=== PATIENT | male | born 1940 | race Caucasian/White ===

== ENCOUNTER 2019-05-19 11:34 | Inpatient (IN) | payer MEDICARE, SELFPAY ==
[2019-05-19] VITALS (10 sets, daily range): BP systolic 82–122; BP diastolic 54–75; PULSE 84–103; RESP 14–25; TEMP 36.1–37.3; O2SAT 92–100; BMI 19.6; BMI 19.1; BMI 19.2
--- NOTE | 2019-05-19 11:48 | EKG12_ITS ---
Test Reason : Blood Pressure : / mmHG Vent. Rate : 094 BPM Atrial Rate : 094 BPM P-R Int : 152 ms QRS Dur : 100 ms QT Int : 316 ms P-R-T Axes : 063 032 165 degrees QTc Int : 395 ms Normal sinus rhythm Possible Left atrial enlargement Low voltage QRS ST & T wave abnormality, consider inferolateral ischemia Abnormal ECG Confirmed by DEION FOWLER, AMEYA ([id number]), assistant film editor ASHIA OVALLES ([id number]) on 05/20/2019 1:42:20 PM Referred By: JASON Confirmed By:AMEYA ALBARRAN MD
--- NOTE | 2019-05-19 11:50 | ED.VIS.GEN ---
History of Present Illness Chief Complaint: Weakness Informant: Patient, Family Onset: - - Uncertain Context: Gradual Onset Timing: Continuous Quality: Poor p.o. intake, decreased activity Location: Not applicable Current Severity: - - Unknown Maximum Severity: - - Unknown Worsened by: Son is concerned for depression Relieved by: Nothing Associated Symptoms: Generalized weakness Narrative: Patient is an elderly male who was admitted to [facility] last week and discharged last Sunday. He is presently on digoxin and Eliquis. He was diagnosed with right rib fracture, A. fib RVR and COPD. He has history of lung cancer. Primary informant was son. His speech is garbled, which son states is normal for him. He denies black or maroon stool. He denies blood in his urine. He states his urine is dark. He was unaware that his skin is discolored. Prior similar symptoms: No Recent Illness/Hospitalization: Yes Past Medical History - Allergies and Home Meds Allergies/Adverse Reactions: Allergies No Known Allergies Allergy (Verified 05/19/19 12:39) Primary Care Physician: NOT,DEFINED [NON-STAFF] - Prior records reviewed: Yes - From [place] Past Medical History: - - A. fib, COPD, lung cancer, right rib fracture Lives: Alone Smoking Status: Former smoker Alcohol: None Review of Systems ROS: Unable to Obtain - History is limited to what son is able to tell me, records from [facility] and patient General: Reports: Malaise. Denies: Chills, Fever, Sweats Eyes: Denies: Visual changes - bilaterally, Blurred Vision - bilaterally ENT: Denies: Rhinorrhea, Sore throat Cardiovascular: Denies: Chest pain, Palpitations, Heart racing Respiratory: Reports: Dyspnea, Dyspnea on exertion. Denies: Cough, Sputum, Orthopnea Gastrointestinal: Denies: Abdominal pain, Nausea, Vomiting, Melena, Hematochezia Genitourinary: Denies: Dysuria, Hematuria, Frequency Musculoskeletal: Denies: Myalgias, Arthralgias, Neck pain, Back pain, Swelling, Extremity Pain Skin: Reports: Rash - There is a lenticular rash noted with delayed capillary refill, greater than 3 seconds. Neurological: Reports: Weakness. Denies: Headache Psych: Reports: Depression - Per son Endocrine: Denies: Polyuria, Polydipsia Hematologic: Denies: Easy bruising Allergy: Denies: Uticaria, Swelling of the mouth Physical Exam Vital Signs/Narrative: Vital Signs Temp Pulse Resp BP Pulse Ox 05/19/19 11:36 97.0 F L 103 H 14 82/54 L 96 Inital Vital Signs reviewed: Yes - Systolic blood pressure 82 in triage. General: Well nourished, Well developed, No Acute Distress Head: Normocephalic, Atraumatic Eyes: Perrl, EOMI. Negative for: Pale conjunctiva, Scleral icterus ENT: No rhinorrhea, TM's clear Neck: Supple, Nontender, No lymphadenopathy, No JVD Cardiovascular: Regular rhythm, No murmurs, Normal S1, Normal S2, Tachycardia Respiratory: No distress, Chest nontender, Rales - Rales noted posteriorly over the right lower lobe., Diminished - Diminished to absent breath sounds left lower lobe posteriorly Abdomen: Soft, Nontender, Nondistended, Normal bowel sounds, No masses, - - There is no abdominal bruit or pulsatile mass noted.. Negative for: Hepatomegaly, Splenomegaly, Mass Back: Nontender, Normal Inspection. Negative for: CVA tenderness Extremities: Nontender, No edema Skin: Cyanosis - Peripherally upper and lower extremity. Negative for: Normal color, No rash, Diaphoresis, Jaundice Neurological: Cranial nerves II-XII grossly intact, Normal Strength, Normal Sensation. Negative for: Normal Gait - Unable to assess because of acuity Psychological: Depressed - With slow psychomotor skills Diagnostic/Tx/Re-eval Chest X-Ray - ED: 1 View, Read by ED Physician Single view chest x-ray interpreted by me at 1220 as possible effusion left with probable scarring versus cancer. There is no evidence of pneumothorax noted right or left. According to son he has cancer on the left side. Furthermore, rib fracture was on the right. Impressions Chest X-Ray 05/19/19 12:00 IMPRESSION: Findings suggest chronic pleural parenchymal changes in the left hemithorax with volume loss. Calcified pleural plaques. Electronically Signed: Moreno Terry, at 12:27 EDT , Service support , 05/19/19 12:00 Chest 1 View (Portable) [RAD] Stat Laboratory Results 05/19/19 05/19/19 05/19/19 12:00 12:00 12:00 WBC 13.3 H RBC 5.43 Hgb 16.3 Hct 49.6 MCV 91.3 MCH 30.0 MCHC 32.9 RDW 14.2 RDW Differential 47.5 H Plt Count 324 MPV 10.7 Immature Gran % (Auto) 0.300 Neut % (Auto) 87.3 H Lymph % (Auto) 5.1 L [place] % (Auto) 6.9 Eos % (Auto) 0.2 Baso % (Auto) 0.2 Absolute Neuts (auto) 11.6 H Absolute Lymphs (auto) 0.68 L Total Counted Not Reportable Sodium 138 Potassium 4.3 Chloride 99 Carbon Dioxide 32.0 Anion Gap 7 BUN 16 Creatinine 0.76 Estim Creat Clear Calc 46.09 Est GFR (MDRD) Af Amer 128 Est GFR (MDRD) Non-Af 106 BUN/Creatinine Ratio 21.2 H Glucose 131 H Lactic Acid 1.9 Calcium 9.0 Total Bilirubin 1.00 AST 20 ALT 20 Alkaline Phosphatase 159 H Total Creatine Kinase Troponin I < 0.015 Total Protein 8.3 H Albumin 2.4 L Globulin 5.9 H Albumin/Globulin Ratio 0.4 L Urine Color Urine Clarity Urine pH Ur Specific [place] Urine Protein Urine Glucose (UA) Urine Ketones Urine Occult Blood Urine Nitrite Urine Bilirubin Urine Urobilinogen Ur Leukocyte Esterase Urine RBC Urine WBC Ur Squamous Epith Cells Triple Phos Crystals Amorphous Sediment Urine Bacteria Urine Mucus Urine Trichomonas 05/19/19 05/19/19 12:00 12:00 WBC RBC Hgb Hct MCV MCH MCHC RDW RDW Differential Plt Count MPV Immature Gran % (Auto) Neut % (Auto) Lymph % (Auto) [place] % (Auto) Eos % (Auto) Baso % (Auto) Absolute Neuts (auto) Absolute Lymphs (auto) Total Counted Sodium Potassium Chloride Carbon Dioxide Anion Gap BUN Creatinine Estim Creat Clear Calc Est GFR (MDRD) Af Amer Est GFR (MDRD) Non-Af BUN/Creatinine Ratio Glucose Lactic Acid Calcium Total Bilirubin AST ALT Alkaline Phosphatase Total Creatine Kinase 18 L Troponin I Total Protein Albumin Globulin Albumin/Globulin Ratio Urine Color Yellow Urine Clarity Turbid Urine pH 8.0 Ur Specific [place] 1.010 Urine Protein 100 H Urine Glucose (UA) Normal Urine Ketones 5 H Urine Occult Blood 150 H Urine Nitrite Positive H Urine Bilirubin Negative Urine Urobilinogen 4 H Ur Leukocyte Esterase 500 H Urine RBC 0-5 SEEN Urine WBC >100 SEEN Ur Squamous Epith Cells 0-5 SEEN Triple Phos Crystals [employer]AT [employer] ENGINEER Amorphous Sediment 1+ Urine Bacteria 4+ Urine Mucus 1+ Urine Trichomonas - Rhythm Strip Rhythm Strip: Sinus Tach Rate: 101 - EKG Initial EKG Interpretation: Sinus Rhythm - Trickle rate 94. NV interval 152 ms. QRS duration 100 ms. QT 316 ms. There is evidence of low voltage. There is artifact. There are ST-T wave changes in the lateral leads. - Medical Decision Making Since patient is hypotensive mottled with poor capillary refill 1 L of normal saline was ordered. With history of trauma and fractured ribs and abnormal breath sounds noted need to evaluate for hemothorax especially since patient is on Eliquis. Since patient is on digoxin will obtain digoxin level to rule out digoxin toxicity. CBC was obtained to assess white count as well as H&H. In the direct differential one needs to rule out GI bleed as well. Because patient reports change in color his urine will obtain UA to assess for infection and blood. Troponin was obtained to rule out cardiac ischemia. CPK to evaluate for rhabdomyolysis. Urine is turbid and appearance of creamy chicken soup. Urine culture was sent and he received 1 g of Rocephin IV piggyback. He will receive 30 cc/kg of normal saline since his systolic blood pressure is less than 90 and concern for infectious etiology of his hypotension. CODE STATUS was discussed with son. He has a living will. Read through the living well. Patient does not want CPR. With regards to ventilator there is a stipulation if terminal. Since patient has an infection which is reversible should consider intubation. With regards to central line placement pressors, son states no one to talk to him. Aced on what I read and is being a reversible cause would consider placement of central line and pressors if indicated. Lactate is normal at 1.9. Since patient has infectious source tachycardic, hypothermic and elevated white count will treat for severe sepsis. He was fluid responsive. Will page hospitalist for admission to stepdown unit. Recommend stepdown unit because of need for nursing care/monitoring. - Critical Care Time Critical care time (excluding procedures): 30-74 minutes, Discussing w/Patient &/or Family/Social Media Marketing Analyst, Discussing w/Consultants, Arranging Admission or Transfer ED Disposition - Plan for ED Patient: Disposition: Acute Care Hospital [facility] Diagnosis: Severe sepsis, Hypotension, Urinary tract infection, History of chronic obstructive pulmonary disease, History of atrial fibrillation, On continuous oral anticoagulation Referrals: NOT,DEFINED [NON-STAFF] -
--- NOTE | 2019-05-19 12:00 | RAD_ITS ---
STUDY: X-RAY CHEST REASON FOR EXAM: Male, 78 years old. Weakness. Tachycardia. TECHNIQUE: Single AP portable view of the chest. COMPARISON: None. FINDINGS: EKG electrodes are seen. Volume loss in the left hemithorax with pleural-parenchymal changes at the left lung base. There is evidence of bronchiectasis involving the left upper and left lower lobes suggestive of chronic scarring. Calcified pleural plaques bilaterally. Hyperinflation of the right lung. Normal size heart. Normal mediastinum and jared. Normal visualized pulmonary arteries. Normal visualized aortic arch and descending thoracic aorta. There are diffuse degenerative changes of the visualized thoracic spine. Scoliosis. Normal visualized ribs, clavicles, and shoulders. There is no demonstrated abnormality of the visualized soft tissue structures of the upper abdomen. RAD/Chest 1 View (Portable) IMPRESSION: Findings suggest chronic pleural parenchymal changes in the left hemithorax with volume loss. Calcified pleural plaques. Electronically Signed: Moreno Terry, at 12:27 EDT , Service support ,
[2019-05-19] MEDS: 0.9% Normal Saline 1,000 ML 1000 ML IV (12:31)
[2019-05-19 12:40] LABS: Absolute Lymphocyte Count 0.68 X10^3/ul (0.83-4.51); Absolute Neutrophil Count 11.6 X10^3/uL (2.0-7.7); Basophil# 0.02 X10^3/uL; Basophil% 0.2 % (0-1); Eosinophil# 0.02 X10^3/uL; Eosinophils% 0.2 % (0-5); Hematocrit 49.6 % (40-54); Hemoglobin 16.3 g/dl (13.0-16.5); Lymphocyte # 0.68 X10^3/ul (4.0); Lymphocyte % 5.1 % (19-41); Mean Corp Hgb Conc 32.9 g/gl (32-36); Mean Corpuscular Volume 91.3 fL (80-94); Mean Platelet Vol. 10.7 fl (6.2-12.0); Monocyte# 0.92 X10^3/uL; Monocyte% 6.9 % (0-10); Neutrophil # 11.63 X10^3/uL (2.7-7.7); Neutrophil % 87.3 % (47-70); Platelet Count 324 K/mm3 (150-450); RBC Distribution Width CV 14.2 % (11.6-14.6); RBC Distribution Width SD 47.5 fl (35.1-43.9); Red Blood Count 5.43 M/mm3 (4.6-6.2); White Blood Count 13.3 K/mm3 (4.4-11.0)
[2019-05-19 12:41] LABS: Color, Urine Yellow (Yellow); Glucose, Dipstick Normal (Normal); Ketone-Dipstick 5 mg/dl (Negative); Leukocyte Esterase-Dipstick 500 /ul (Negative); Nitrite-Dipstick Positive (Negative); Occult Blood-Urine 150 /ul (Negative); POSITIVE COUNT NO; POSITIVE DIFFERENTIAL NO; POSITIVE MORPHOLOGY NO; Protein-Dipstick 100 mg/dl (Negative); Urine Bilirubin Dipstick Negative (Negative); Urine Clarity Turbid (Clear); Urine Urobilinogen 4 mg/dl (Normal)
[2019-05-19 12:57] LABS: White Blood Cells >100 SEEN /hpf (0-5)
[2019-05-19 12:58] LABS: Bacteria 4+ /hpf (None Seen); CPK Total, Creatine Kinase 18 U/L (39-308); Mucous, Urine 1+ /hpf (<or=2+); Red Blood Cells-Urine 0-5 SEEN /hpf (0-5); Squamous Epithelial Cells - UA 0-5 SEEN /hpf (0-5)
[2019-05-19 13:00] LABS: ALB/GLOB Ratio 0.4 RATIO (0.9-2.4); AST(SGOT) 20 U/L (15-37); Alanine Aminotransfer ALT/SGPT 20 U/L (16-61); Albumin, Serum 2.4 g/dL (3.2-5.0); Alkaline Phosphatase 159 U/L (45-117); Amorphous Sediment 1+; Anion Gap 7 (5-15); BUN 16 mg/dL (7-18); BUN/Creat Ratio 21.2 RATIO (10-20); Chloride 99 mmol/L (98-107); Creatinine, Serum 0.76 mg/dL (0.70-1.30); EST Glomerular Filtration Rate 106 mL/min (>60); Est Glom Filt Rate - Afr Amer 128 mL/min (>60); Estimated Creatinine Clearance 46.09 ml/min; Globulin 5.9 g/dL (2.2-4.2); Glucose 131 mg/dL (74-106); Potassium 4.3 mmol/L (3.5-5.1); Protein, Total 8.3 g/dL (6.4-8.2); Sodium Level 138 mmol/L (136-145)
[2019-05-19 13:05] LABS: Lactic Acid 1.9 mmol/L (0.4-2.0)
[2019-05-19] MEDS: Ceftriaxone 1 GM/50 ML BAG IV (13:09)
[2019-05-19 13:12] LABS: International Normalized Ratio 1.8; Partial Thromboplast Time 39.2 Seconds (24.1-36.2); Prothrombin Time (Protime)PT. 20.9 SECONDS (11.7-14.9)
--- NOTE | 2019-05-19 13:40 | PCM.HP.STD ---
Problem List (1) Hemoptysis Status: Acute (2) Atrial fibrillation Status: Chronic (3) Severe sepsis Status: Acute (4) Hypotension Status: Acute (5) Urinary tract infection Status: Acute (6) History of chronic obstructive pulmonary disease Status: Chronic (7) On continuous oral anticoagulation Status: Chronic History of Present Illness Date of Admission: 05/19/19 Chief Complaint: Weakness. The patient is a 78 year old M with past medical history as mentioned above presented to the emergency room because of weakness. According to patient's son, the patient lives alone and he has been having difficult time ambulating because of profound weakness that has been going on over the last few days after he was discharged from [facility]. Last week, patient had mechanical fall, went to [facility] where he had a wrist x-ray and he was found to have right rib fractures as well as A. fib with RVR. He was discharged from the hospital this last Sunday and since then, patient has been having issues with ambulation and weakness. While I am talking to the patient, patient coughs up blood twice. Son mentioned that his father has been having this chronic cough with brown-colored sputum since he was diagnosed with cancer more than 2 years ago but this blood is needed. Patient had 2 episodes of hemoptysis with moderate amount of blood. Patient denied chest pain or shortness of breath. He complains of right rib pain. He has history of atrial fibrillation with recent admission for A. fib with RVR and he has been on digoxin and Eliquis. He history of COPD, quit smoking long time ago and has not been using any bronchodilators or home oxygen. He has history of lung cancer in the left lung status post chemotherapy and radiation at the [facility]. In the emergency department, patient was hypotensive upon arrival, received bolus of IV fluids and blood pressure improved. He was afebrile, heart rate has been around 80-100, pulse ox was 96% on room air. Routine blood work was remarkable for leukocytosis, otherwise normal. EKG revealed what looks like atrial flutter, rate has been around 90s, no acute ischemic changes. Troponin is negative. LFT was unremarkable. Urinalysis revealed turbid urine, positive for nitrite and leukocyte esterase, there was more than 100 WBCs and 4+ bacteria. Chest x-ray revealed elevation of left hemidiaphragm, chronic fibrotic changes of the left hemithorax with volume loss and right lung hyperinflation. He is being admitted for severe sepsis secondary to acute cystitis, transient hypotension and hemoptysis. Past Medical History Past Medical History (Chronic Problems): Chronic Problems Atrial fibrillation (Chronic) History of chronic obstructive pulmonary disease (Chronic) On continuous oral anticoagulation (Chronic) Allergies No Known Allergies Allergy (Verified 05/19/19 12:39) Home Medications: Ambulatory Orders Medication Instructions Recorded Apixaban [Eliquis] 5 mg PO BID 05/19/19 Aspirin [Aspir 81] 81 mg PO DAILY 05/19/19 Cholecalciferol (VIT D3) [Vitamin 1,000 unit PO DAILY 05/19/19 D] Digoxin 125 mcg PO DAILY 05/19/19 Docusate Sodium [Stool Softener] 50 mg PO PRN PRN 05/19/19 Surgical History: appendectomy Psychiatric History: No pertinent psych hx Lives: Alone Smoking Status: Former smoker Alcohol: None Drugs: None - *Family History Maternal History Items: No pertinent history Paternal History Items: No pertinent history Review of Systems Constitutional: Reports: Anorexia, Weakness, Fatigue. Denies: Chills, Fever Eyes: Denies: Blurred vision, Double vision, Drainage, Redness HEENT: Denies: Difficulty Hearing, Ear Pain, Eye Pain, Nasal Congestion, Sore Throat Cardiovascular: Reports: - - Right rib pain.. Denies: Chest Pain, Chest Pressure, Chest Tightness, Heaviness, Light Headedness, Orthopnea, Paroxysmal Noc. Dyspnea Respiratory: Reports: Cough, Hemoptysis, Pleuritic Pain, Sputum production. Denies: Shortness of Breath, Wheezing Gastrointestinal: Denies: Abdominal Pain, Constipation, Diarrhea, Nausea, Vomiting Genitourinary: Reports: Incontinence. Denies: Dysuria, Frequency, Hematuria Musculoskeletal: Denies: Arm Pain, Back Pain, Foot Pain Skin: Denies: Dryness, Rash Neurological: Denies: Balance problems, Double vision, Change in Speech, Slurred speech, Confusion, Headaches, Incoordination, Numbness Psychiatric: Denies: Anxiety, Depression Endocrine: Denies: Change in Body Habitus, Polydipsia, Polyuria VTE Information - Inpt Only VTE Present on Admission: No VTE Mechan Device Prophylaxis: SCD's VTE Pharm Prophylaxis ordered?: No Patient Problems: Active and Suspected Problems Severe sepsis (Acute) Hypotension (Acute) Urinary tract infection (Acute) - Physical Exam General: Alert, Oriented x3, Cooperative, No apparent distress HEENT: Atraumatic, PERRLA, EOMI, Normocephalic Oral: No Gingival or Mucosal Lesions/ Ulcerations, Dry Mucosa Neck: Supple, No JVD, Negative Carotid Bruits, Trachea Midline, Thyroid Normal Size and Texture Lungs: Diminished, Rales, Rhonchi, - - Markedly decreased breath sounds on the left hemithorax, coarse crackles, rhonchi. Cardiovascular: Regular rate, Regular Rhythm, Normal S1, Normal S2, PMI Normal, Tachycardic Abdomen: Bowel Sounds Present, Soft, Non Tender, Non-Distended, No Hepato-splenomegaly Extremities: No clubbing, No cyanosis, No edema Skin: No rashes, No breakdown Lymphatic: No Cervical, Supraclavicular, or Inguinal Adenopathy Neurological: Cranial nerves II-XII grossly intact, Motor Exam 5/5 strength throughout Psych/Mental Status: Normal Affect, Appropriate Vital Signs Temp Pulse Resp BP Pulse Ox 97.0 F L 85 25 H 122/75 H 100 05/19/19 11:36 05/19/19 13:23 05/19/19 13:23 05/19/19 13:23 05/19/19 13:23 Oxygen Delivery Method Room Air Weight: 118 lb Body Mass Index (BMI) 19.6 Laboratory Tests Past 24 Hrs 05/19/19 05/19/19 05/19/19 12:00 12:00 12:00 WBC 13.3 H RBC 5.43 Hgb 16.3 Hct 49.6 MCV 91.3 MCH 30.0 MCHC 32.9 RDW 14.2 RDW Differential 47.5 H Plt Count 324 MPV 10.7 Immature Gran % (Auto) 0.300 Neut % (Auto) 87.3 H Lymph % (Auto) 5.1 L [place] % (Auto) 6.9 Eos % (Auto) 0.2 Baso % (Auto) 0.2 Absolute Neuts (auto) 11.6 H Absolute Lymphs (auto) 0.68 L Total Counted Not Reportable PT 20.9 H INR 1.8 APTT 39.2 H Sodium 138 Potassium 4.3 Chloride 99 Carbon Dioxide 32.0 Anion Gap 7 BUN 16 Creatinine 0.76 Estim Creat Clear Calc 46.09 Est GFR (MDRD) Af Amer 128 Est GFR (MDRD) Non-Af 106 BUN/Creatinine Ratio 21.2 H Glucose 131 H Lactic Acid Calcium 9.0 Total Bilirubin 1.00 AST 20 ALT 20 Alkaline Phosphatase 159 H Total Creatine Kinase Troponin I < 0.015 Total Protein 8.3 H Albumin 2.4 L Globulin 5.9 H Albumin/Globulin Ratio 0.4 L Urine Color Urine Clarity Urine pH Ur Specific [place] Urine Protein Urine Glucose (UA) Urine Ketones Urine Occult Blood Urine Nitrite Urine Bilirubin Urine Urobilinogen Ur Leukocyte Esterase Urine RBC Urine WBC Ur Squamous Epith Cells Triple Phos Crystals Amorphous Sediment Urine Bacteria Urine Mucus Urine Trichomonas 05/19/19 05/19/19 05/19/19 12:00 12:00 12:00 WBC RBC Hgb Hct MCV MCH MCHC RDW RDW Differential Plt Count MPV Immature Gran % (Auto) Neut % (Auto) Lymph % (Auto) [place] % (Auto) Eos % (Auto) Baso % (Auto) Absolute Neuts (auto) Absolute Lymphs (auto) Total Counted PT INR APTT Sodium Potassium Chloride Carbon Dioxide Anion Gap BUN Creatinine Estim Creat Clear Calc Est GFR (MDRD) Af Amer Est GFR (MDRD) Non-Af BUN/Creatinine Ratio Glucose Lactic Acid 1.9 Calcium Total Bilirubin AST ALT Alkaline Phosphatase Total Creatine Kinase 18 L Troponin I Total Protein Albumin Globulin Albumin/Globulin Ratio Urine Color Yellow Urine Clarity Turbid Urine pH 8.0 Ur Specific [place] 1.010 Urine Protein 100 H Urine Glucose (UA) Normal Urine Ketones 5 H Urine Occult Blood 150 H Urine Nitrite Positive H Urine Bilirubin Negative Urine Urobilinogen 4 H Ur Leukocyte Esterase 500 H Urine RBC 0-5 SEEN Urine WBC >100 SEEN Ur Squamous Epith Cells 0-5 SEEN Triple Phos Crystals PHOTO TECHNOLOGIST Amorphous Sediment 1+ Urine Bacteria 4+ Urine Mucus 1+ Urine Trichomonas Clinical Impression(s) from Imaging Studies Chest X-Ray 05/19/19 12:00 IMPRESSION: Findings suggest chronic pleural parenchymal changes in the left hemithorax with volume loss. Calcified pleural plaques. Electronically Signed: Moreno Terry, at 12:27 EDT , Service support , Assessment/Plan All Active Problems Hemoptysis (Acute) Severe sepsis (Acute) Hypotension (Acute) Urinary tract infection (Acute) This is a 78 years old male patient presented to the emergency room because of weakness, found to have severe sepsis secondary to acute cystitis with transient hypotension and also he developed hemoptysis while in the emergency department. #1 acute cystitis/severe sepsis: Initially, patient was hypotensive, improved with IV fluid bolus. Lactic acid was normal. Plan: Admit to PCU stepdown status, IV fluids, blood culture, urine culture, start IV Rocephin, Tylenol as needed, IV antiemetics, repeat CBC and BMP tomorrow morning, repeat INR tomorrow morning, PT OT evaluation and treatment. #2 hemoptysis/recent history of right rib fractures: In context of history of lung cancer. Chest x-ray reviewed as above. Patient does have a history of chronic cough with brown sputum but today, it was bloody. Hemoglobin and hematocrit are stable. Patient had a recent history of mechanical fall with right rib fractures, was continued on Eliquis. His INR is 1.8. Plan: Discontinuing Eliquis and aspirin, pain control, repeat CBC and BMP tomorrow, repeat INR tomorrow morning. I discussed discontinuing Eliquis with the patient's son, explained to him risks of bleeding versus risks of stroke and he agreed to discontinue Eliquis at this time. #3 chronic atrial fibrillation: Rate is controlled, has been around 90-100, blood pressure stabilized. Plan to continue digoxin for rate control, discontinue Eliquis and aspirin for now. Eliquis will be discontinued forever because of high risk of bleeding. #4 history of lung cancer: Status post chemotherapy and radiation. Plan as above. #5 COPD: Pulse ox is maintained on room air. Plan to do albuterol as needed, incentive parameter. #6 CODE STATUS: Discussed with the patient himself and his son. I explained to the patient different types of CODE STATUS including DNR CC, DNR CCA and full code. Patient clearly mentioned that he does not want any aggressive treatment, no resuscitation, no intubation and mechanical ventilation. Patient's son agreed. CODE STATUS is DNR CCA. #7 DVT prophylaxis: SCDs. This note was generated with [employer] dictation software. It may contain incorrect words, spelling, and punctuation that were not noted in checking the note before signing. Code Visit Inpatient E&M: 33627 Init Hosp L3 Procedures: 41087 Advncd Care Plan 30 Min - 17 mins spent in discussion.
--- NOTE | 2019-05-19 15:59 | CASEMGMT ---
SW spoke w/pt's son Lobito at bedside, pt is asleep at present, in regard to prior level of care and discharge plan. PCP: Pt sees at a doctor at the [place], son can't remember the doctor's name as he states that the physician has changed multiple times. Preferred Pharmacy: Uses [place] pharmacy Insurance: [employer] Medicare PPO Living Will/POA: On chart, son Lobito states he and son Alexandru are pt's POAs. LNOK: Pt has two sons and a daughter who all live nearby and help pt as able. Living arrangements: Pt lives on the first story of his home, a few steps to get in. DME/HHC: Pt has walker, cane, shower chair and bedside commode. Pt also has home health care services that are to be starting with [facility], 7 hours per week, covered by the [place]. The case manger was to be coming out tomorrow to assess the home situation. SW spoke w/son at the bedside in regard to discharge plan. Son initially asked about hospice, as he was told hospice could provide care for the hours that the aides from [facility] could not. SW explained to son that hospice is end of life care, and that they do not provide this kind of care coverage in the home. Son describes that pt had been managing at home until recently, and since home from [facility] is not able to care for himself really at all. SW asked if son feels pt needs 24/7 care, as the way he is describing it sounds like pt does need this. Son does think pt needs 24/7 care at home. Upon further discussion regarding hospice, son does not think that hospice is appropriate at this time. SW explained for 24/7 care at home, this can be provided by paying out of pocket, but there is no service that provides this. SW spoke w/son about TCU, as SW was informed pt does not want to go to long term. Son is agreeable to referral to TCU possibly, thinks pt may be okay with this. SW explained will put pt on TCU list, and asked him to speak to pt about it and will ask SW to stop in tomorrow. SW also let son know if pt and family do want to speak w/hospice, SW can speak w/physician about that as well. Son states understanding. SW called Courtney and made referral to TCU, let her know that PATRICK tomorrow will follow up w/her if family and pt would like definite referral to TCU. ELIDIA Stacy
[2019-05-19] MEDS: Ceftriaxone 1 GM/50 mL Premix Q24 IV (16:04)
--- NOTE | 2019-05-19 16:24 | CASEMGMT ---
Copy of LW/POA in paper chart. ELIDIA Stacy
[2019-05-19] MEDS: Mirtazapine 15 MG Tablet PO (21:22)
[2019-05-20] VITALS (19 sets, daily range): BP systolic 92–141; BP diastolic 53–85; PULSE 83–97; RESP 16–30; TEMP 36.3–37.3; O2SAT 93–98
[2019-05-20] MEDS: 0.9% Normal Saline 1,000 ML 75 ML IV (02:34)
[2019-05-20 08:36] LABS: Absolute Lymphocyte Count 0.71 X10^3/ul (0.83-4.51); Absolute Neutrophil Count 8.7 X10^3/uL (2.0-7.7); Basophil# 0.02 X10^3/uL; Basophil% 0.2 % (0-1); Eosinophil# 0.05 X10^3/uL; Eosinophils% 0.5 % (0-5); Hematocrit 41.6 % (40-54); Hemoglobin 13.4 g/dl (13.0-16.5); Lymphocyte # 0.71 X10^3/ul (4.0); Lymphocyte % 6.9 % (19-41); Mean Corp Hgb Conc 32.2 g/gl (32-36); Mean Corpuscular Hgb 29.1 pg (27.0-32.0); Mean Corpuscular Volume 90.4 fL (80-94); Mean Platelet Vol. 10.4 fl (6.2-12.0); Monocyte# 0.82 X10^3/uL; Monocyte% 7.9 % (0-10); Neutrophil # 8.72 X10^3/uL (2.7-7.7); Neutrophil % 84.3 % (47-70); POSITIVE COUNT NO; POSITIVE DIFFERENTIAL NO; POSITIVE MORPHOLOGY NO; Platelet Count 289 K/mm3 (150-450); RBC Distribution Width CV 14.2 % (11.6-14.6); White Blood Count 10.3 K/mm3 (4.4-11.0)
[2019-05-20 08:45] LABS: Anion Gap 6 (5-15); BUN 11 mg/dL (7-18); BUN/Creat Ratio 24.8 RATIO (10-20); Calcium,Total 8.1 mg/dL (8.5-10.1); Chloride 104 mmol/L (98-107); Creatinine, Serum 0.44 mg/dL (0.70-1.30); EST Glomerular Filtration Rate 196 mL/min (>60); Est Glom Filt Rate - Afr Amer 237 mL/min (>60); Estimated Creatinine Clearance 44.95 ml/min; Glucose 96 mg/dL (74-106); Potassium 3.9 mmol/L (3.5-5.1); Sodium Level 139 mmol/L (136-145)
[2019-05-20 09:10] LABS: International Normalized Ratio 1.6; Prothrombin Time (Protime)PT. 18.8 SECONDS (11.7-14.9)
[2019-05-20] MEDS: Digoxin 125 MCG Tablet PO (09:32)
--- NOTE | 2019-05-20 11:38 | NURSING ---
respiratory therapy notified of consult
--- NOTE | 2019-05-20 12:21 | PN_ITS ---
Patient Problems: Active and Suspected Problems Severe sepsis (Acute) Hypotension (Acute) Urinary tract infection (Acute) Subjective: Patient seen and examined. He was admitted and is being managed for sepsis due to UTI. Patient is lethargic this morning though he has no complaints. He denies any fever or chills, palpitations or dizziness, chest pain, diarrhea vomiting. Review of systems otherwise negative. Labs and vitals reviewed. Patient is to be tachypneic and this is thought to be due to the fact that he is taking very shallow breaths. He is saturating well on room air. white cell count has trended down to 10.3 Vitals/I&O's: Vital Signs Temp Pulse Resp BP Pulse Ox 97.4 F L 88 28 H 114/72 96 05/20/19 12:12 05/20/19 12:12 05/20/19 12:12 05/20/19 12:12 05/20/19 12:12 Oxygen Delivery Method Room Air Weight: 115 lb 1.301 oz Body Mass Index (BMI) 19.1 Intake and Output for Last 24 Hours 05/18/19 05/19/19 05/20/19 23:59 23:59 23:59 Intake Total 2335 / 2335 Output Total 1300 / 1300 Balance 1035 / 1035 General: Alert, Oriented x3, Cooperative, No apparent distress, Lethargic HEENT: Atraumatic, PERRLA, EOMI, Normocephalic Oral: Moist Mucosa Neck: Supple, No JVD, Negative Carotid Bruits Lungs: - - decreased breath sounds bibasally, no wheezes or rales or crackles. Cardiovascular: Regular rate, Regular Rhythm, Normal S1, Normal S2, No murmurs Abdomen: Bowel Sounds Present, Soft, Non Tender, Non-Distended Extremities: No clubbing, No cyanosis, No edema, Capillary Refill Less than 3 Seconds Skin: No rashes, No breakdown Musculoskeletal: No Tenderness to Palpation of Joints or Extremities Lymphatic: No Cervical, Supraclavicular, or Inguinal Adenopathy Neurological: Cranial nerves II-XII grossly intact, Neuro grossly intact, Motor Exam 5/5 strength throughout Psych/Mental Status: Normal Affect, Appropriate, Alert and oriented to time, place, person, mood and affect Microbiology Past 72 Hours 05/19/19 12:00 Urine Catheter - Serrato Urine Culture - Preliminary Gram negative luana Laboratory Results 05/19/19 12:00: WBC 13.3 H, RBC 5.43, Hgb 16.3, Hct 49.6, MCV 91.3, MCH 30.0, MCHC 32.9, RDW 14.2, RDW Differential 47.5 H, Plt Count 324, MPV 10.7, Immature Gran % (Auto) 0.300, Neut % (Auto) 87.3 H, Lymph % (Auto) 5.1 L, [place] % (Auto) 6.9, Eos % (Auto) 0.2, Baso % (Auto) 0.2, Absolute Neuts (auto) 11.6 H, Absolute Lymphs (auto) 0.68 L, Total Counted Not Reportable 05/19/19 12:00: PT 20.9 H, INR 1.8, APTT 39.2 H 05/19/19 12:00: Sodium 138, Potassium 4.3, Chloride 99, Carbon Dioxide 32.0, Anion Gap 7, BUN 16, Creatinine 0.76, Estim Creat Clear Calc 46.09, Est GFR (MDRD) Af Amer 128, Est GFR (MDRD) Non-Af 106, BUN/Creatinine Ratio 21.2 H, Glucose 131 H, Calcium 9.0, Total Bilirubin 1.00, AST 20, ALT 20, Alkaline Phosphatase 159 H, Troponin I < 0.015, Total Protein 8.3 H, Albumin 2.4 L, Globulin 5.9 H, Albumin/Globulin Ratio 0.4 L 05/19/19 12:00: Lactic Acid 1.9 05/19/19 12:00: Total Creatine Kinase 18 L 05/19/19 12:00: Urine Color Yellow, Urine Clarity Turbid, Urine pH 8.0, Ur Specific [place] 1.010, Urine Protein 100 H, Urine Glucose (UA) Normal, Urine Ketones 5 H, Urine Occult Blood 150 H, Urine Nitrite Positive H, Urine Bilirubin Negative, Urine Urobilinogen 4 H, Ur Leukocyte Esterase 500 H, Urine RBC 0-5 SEEN, Urine WBC >100 SEEN, Ur Squamous Epith Cells 0-5 SEEN, Triple Phos Crystals EMERG[employer] SERVICE [employer]ER, Amorphous Sediment 1+, Urine Bacteria 4+, Urine Mucus 1+, Urine Trichomonas 05/20/19 08:00: WBC 10.3, RBC 4.60, Hgb 13.4, Hct 41.6, MCV 90.4, MCH 29.1, MCHC 32.2, RDW 14.2, RDW Differential 47.0 H, Plt Count 289, MPV 10.4, Immature Gran % (Auto) 0.200, Neut % (Auto) 84.3 H, Lymph % (Auto) 6.9 L, [place] % (Auto) 7.9, Eos % (Auto) 0.5, Baso % (Auto) 0.2, Absolute Neuts (auto) 8.7 H, Absolute Lymphs (auto) 0.71 L, Total Counted Not Reportable 05/20/19 08:00: Sodium 139, Potassium 3.9, Chloride 104, Carbon Dioxide 29.0, Anion Gap 6, BUN 11, Creatinine 0.44 L, Estim Creat Clear Calc 44.95, Est GFR (MDRD) Af Amer 237, Est GFR (MDRD) Non-Af 196, BUN/Creatinine Ratio 24.8 H, Glucose 96, Calcium 8.1 L 05/20/19 08:00: PT 18.8 H, INR 1.6 Diagnostic Data Chest X-Ray 05/19/19 12:00 IMPRESSION: Findings suggest chronic pleural parenchymal changes in the left hemithorax with volume loss. Calcified pleural plaques. Electronically Signed: Moreno Terry, at 12:27 EDT , Service support , Current Medications Acetaminophen (Tylenol) 650 mg PO Q6H PRN PRN PRN Reason: Mild pain 1-3/Temp > 100.7 F Albuterol Sulfate (Ventolin Aerosols) 2.5 mg INHALATION Q4H PRN PRN PRN Reason: Shortness of breath, wheezing Digoxin (Lanoxin) 125 mcg PO DAILY DESIREE Last Admin: 05/20/19 09:32 Dose: 125 mcg Documented by: Docusate Sodium (Colace) 100 mg PO BID PRN PRN PRN Reason: CONSTIPATION Ceftriaxone Sodium 2 gm/ (Sodium Chloride) 50 mls @ 100 mls/hr IV Q24 DESIREE Last Admin: 05/20/19 09:32 Dose: 100 mls/hr Documented by: Sodium Chloride () 1,000 mls @ 75 mls/hr IV .[id number] [facility] Stop: 05/20/19 17:46 Last Admin: 05/20/19 02:34 Dose: 75 mls/hr Documented by: Mirtazapine (Remeron) 15 mg PO QHS [facility] Last Admin: 05/19/19 21:22 Dose: 15 mg Documented by: Nutritional Formula (Lactose Free) (Ensure Enlive) 120 ml PO 4X/DAY [facility] Last Admin: 05/20/19 09:32 Dose: 120 ml Documented by: Ondansetron HCl (Zofran) 4 mg IV Q8H PRN PRN PRN Reason: NAUSEA/VOMITING Sodium Chloride () 10 - 40 ml IV UD PRN PRN Reason: SALINE FLUSH Medical Necessity - Tobacco Use Smoking Status: Former smoker Tobacco Use: Cigarettes Assessment/Plan All Active Problems Hemoptysis (Acute) Severe sepsis (Acute) Hypotension (Acute) Urinary tract infection (Acute) 1. Severe sepsis due to UTI * Was admitted with a complaint of generalized weakness and found to be hypotensive when he was admitted. This responded to IV fluids. Met SIRS criteria and had UTI. * Was recently admitted at [facility] for mechanical fall where he was also found to have rib fractures as well as A. fib with RVR. Subsequently became debilitated and weak at home. * Currently tachypneic. White cell count is trended down to 10.3. * SIRS criteria is now 1 out of 4. * On IV ceftriaxone. Will continue. * continue hydration with IVF NS @ 75cc/hr * 2. Hemoptysis in setting of recent right rib fractures * also has a history of lung cancer. * hemoptysis has resolved * patient however tachypneic, breathing in the high 20s. He seems to be taking shallow breaths, with poor inspiratory effort due to generalised weakness * chest physiotherapy * incentive spirometry * breathing treatments * if hemoptysis recurs, will consult pulmo * 3. Chronic Afib: rate controlled. Eliquis and aspirin held for now o/a of hemoptysis. on digoxin 4. History of lung cancer: Status post chemo and radiation. Stable. 5. COPD: Breathing treatments. Give oxygen as needed to maintain saturation above 100%. DVT prophylaxis: SCDs. No anticoagulation for now o/a of hemoptysis CODE STATUS: DNR CCA Code Visit Inpatient E&M: 83814 Subs Hosp L3
--- NOTE | 2019-05-20 14:45 | CASEMGMT ---
SW spoke with patient about [facility]. He agreed to go to TCU when ready for discharge. Plan: [facility] pending insurance approval and patient being medically ready. Savannah EVANS
[2019-05-20] MEDS: 0.9% Normal Saline 1,000 ML 999 ML IV (17:00)
[2019-05-20] MEDS: 0.9% Normal Saline 1,000 ML 125 ML IV (18:06)
[2019-05-20] MEDS: Mirtazapine 15 MG Tablet PO (22:19)
[2019-05-21] VITALS (13 sets, daily range): BP systolic 96–125; BP diastolic 57–75; PULSE 80–94; RESP 24; TEMP 36.5–37.1; O2SAT 94–98
[2019-05-21] MEDS: 0.9% Normal Saline 1,000 ML 125 ML IV ×2 (01:39→10:11)
[2019-05-21 05:59] LABS: Absolute Lymphocyte Count 0.64 X10^3/ul (0.83-4.51); Absolute Neutrophil Count 7.1 X10^3/uL (2.0-7.7); Basophil# 0.04 X10^3/uL; Basophil% 0.5 % (0-1); Eosinophil# 0.07 X10^3/uL; Eosinophils% 0.8 % (0-5); Hematocrit 42.4 % (40-54); Hemoglobin 13.5 g/dl (13.0-16.5); Lymphocyte # 0.64 X10^3/ul (4.0); Lymphocyte % 7.4 % (19-41); Mean Corp Hgb Conc 31.8 g/gl (32-36); Mean Corpuscular Hgb 28.7 pg (27.0-32.0); Mean Corpuscular Volume 90.2 fL (80-94); Mean Platelet Vol. 10.3 fl (6.2-12.0); Monocyte# 0.85 X10^3/uL; Monocyte% 9.8 % (0-10); Neutrophil # 7.08 X10^3/uL (2.7-7.7); Neutrophil % 81.4 % (47-70); Platelet Count 301 K/mm3 (150-450); RBC Distribution Width CV 14.3 % (11.6-14.6); RBC Distribution Width SD 46.6 fl (35.1-43.9); White Blood Count 8.7 K/mm3 (4.4-11.0)
[2019-05-21 06:08] LABS: POSITIVE COUNT NO; POSITIVE DIFFERENTIAL NO; POSITIVE MORPHOLOGY NO
[2019-05-21 06:16] LABS: Anion Gap 6 (5-15); BUN 13 mg/dL (7-18); BUN/Creat Ratio 19.8 RATIO (10-20); Calcium,Total 8.2 mg/dL (8.5-10.1); Chloride 105 mmol/L (98-107); Creatinine, Serum 0.66 mg/dL (0.70-1.30); EST Glomerular Filtration Rate 125 mL/min (>60); Est Glom Filt Rate - Afr Amer 151 mL/min (>60); Estimated Creatinine Clearance 44.95 ml/min; Glucose 86 mg/dL (74-106); Potassium 4.3 mmol/L (3.5-5.1); Sodium Level 142 mmol/L (136-145)
[2019-05-21] MEDS: Digoxin 125 MCG Tablet PO (10:14)
--- NOTE | 2019-05-21 12:43 | PCM.PN.HOSP ---
Patient Problems: Active and Suspected Problems Severe sepsis (Acute) Hypotension (Acute) Urinary tract infection (Acute) Subjective: Patient seen and examined. Is drowsy but arousable. Was not answering any question possible today he had no complaints and denied any pain. Patient had been noted to be taking shallow breaths and so was tachypneic. Respiratory therapy had worked with patient that he was very lethargic and sent over corporative. He is saturating well on room air. Vitals/I&O's: Vital Signs Temp Pulse Resp BP Pulse Ox 98.4 F 85 24 H 104/64 96 05/21/19 10:15 05/21/19 11:00 05/21/19 10:15 05/21/19 10:15 05/21/19 10:15 Oxygen Delivery Method Room Air Weight: 115 lb 1.301 oz Body Mass Index (BMI) 19.1 Intake and Output for Last 24 Hours 05/19/19 05/20/19 05/21/19 23:59 23:59 23:59 Intake Total 5064 / 5064 1611 / 1611 Output Total 2700 / 2700 1350 / 1350 Balance 2364 / 2364 261 / 261 General: Alert, Oriented x3, Cooperative, No apparent distress, Lethargic HEENT: Atraumatic, PERRLA, EOMI, Normocephalic Oral: Moist Mucosa Neck: Supple, No JVD, Negative Carotid Bruits Lungs: - - decreased breath sounds bibasally, no wheezes or rales or crackles, tachypneic Cardiovascular: Regular rate, Regular Rhythm, Normal S1, Normal S2, No murmurs Abdomen: Bowel Sounds Present, Soft, Non Tender, Non-Distended Extremities: No clubbing, No cyanosis, No edema, Capillary Refill Less than 3 Seconds Skin: No rashes, No breakdown Musculoskeletal: No Tenderness to Palpation of Joints or Extremities Lymphatic: No Cervical, Supraclavicular, or Inguinal Adenopathy Neurological: Cranial nerves II-XII grossly intact, Neuro grossly intact, Motor Exam 5/5 strength throughout Psych/Mental Status: Normal Affect, Appropriate, Alert and oriented to time, place, person, mood and affect Microbiology Past 72 Hours 05/19/19 12:00 Urine Catheter - Serrato Urine Culture - Final Providencia rettgeri Laboratory Results 05/21/19 05:30: WBC 8.7, RBC 4.70, Hgb 13.5, Hct 42.4, MCV 90.2, MCH 28.7, MCHC 31.8 L, RDW 14.3, RDW Differential 46.6 H, Plt Count 301, MPV 10.3, Immature Gran % (Auto) 0.100, Neut % (Auto) 81.4 H, Lymph % (Auto) 7.4 L, [place] % (Auto) 9.8, Eos % (Auto) 0.8, Baso % (Auto) 0.5, Absolute Neuts (auto) 7.1, Absolute Lymphs (auto) 0.64 L, Total Counted Not Reportable 05/21/19 05:30: Sodium 142, Potassium 4.3, Chloride 105, Carbon Dioxide 31.0, Anion Gap 6, BUN 13, Creatinine 0.66 L, Estim Creat Clear Calc 44.95, Est GFR (MDRD) Af Amer 151, Est GFR (MDRD) Non-Af 125, BUN/Creatinine Ratio 19.8, Glucose 86, Calcium 8.2 L Diagnostic Data Chest X-Ray 05/19/19 12:00 IMPRESSION: Findings suggest chronic pleural parenchymal changes in the left hemithorax with volume loss. Calcified pleural plaques. Electronically Signed: Moreno Terry, at 12:27 EDT , Service support , Current Medications Acetaminophen (Tylenol) 650 mg PO Q6H PRN PRN PRN Reason: Mild pain 1-3/Temp > 100.7 F Albuterol Sulfate (Ventolin Aerosols) 2.5 mg INHALATION Q4H PRN PRN PRN Reason: Shortness of breath, wheezing Digoxin (Lanoxin) 125 mcg PO DAILY [facility] Last Admin: 05/21/19 10:14 Dose: 125 mcg Documented by: Docusate Sodium (Colace) 100 mg PO BID PRN PRN PRN Reason: CONSTIPATION Ceftriaxone Sodium 2 gm/ (Sodium Chloride) 50 mls @ 100 mls/hr IV Q24 [facility] Last Admin: 05/21/19 10:08 Dose: 100 mls/hr Documented by: Sodium Chloride () 1,000 mls @ 125 mls/hr IV .Q8H [facility] Last Admin: 05/21/19 10:11 Dose: 125 mls/hr Documented by: Mirtazapine (Remeron) 15 mg PO QHS [facility] Last Admin: 05/20/19 22:19 Dose: 15 mg Documented by: Nutritional Formula (Lactose Free) (Ensure Enlive) 120 ml PO 4X/DAY [facility] Last Admin: 05/21/19 10:10 Dose: 120 ml Documented by: Ondansetron HCl (Zofran) 4 mg IV Q8H PRN PRN PRN Reason: NAUSEA/VOMITING Sodium Chloride () 10 - 40 ml IV UD PRN PRN Reason: SALINE FLUSH Medical Necessity - Tobacco Use Smoking Status: Former smoker Tobacco Use: Cigarettes Assessment/Plan All Active Problems Hemoptysis (Acute) Severe sepsis (Acute) Hypotension (Acute) Urinary tract infection (Acute) 1. Severe sepsis due to UTI still lethargic and tachypneic SIRS criteria is now 1/ on IV ceftriaxone blood cultures pending. Urine cultured Providencia rettgeri which is sensitive to ceftriaxone. leucocytosis has resolved 2. Hemoptysis in setting of recent right rib fractures also has a history of lung cancer. hemoptysis hasnt recurred. still has tachypnea o/a of poor inspiratory effort. chest physiotherapy incentive spirometry breathing treatments 3. Chronic Afib: rate controlled. WIll resume eliquis as hemoptysis has resolved. continue digoxin. 4. History of lung cancer: Status post chemo and radiation. Stable. 5. COPD: Breathing treatments. Give oxygen as needed to maintain saturation above 100%. DVT prophylaxis: resume eliquis today. SCDs. CODE STATUS: DNR CCA Code Visit Inpatient E&M: 31044 [facility] Hosp L3
--- NOTE | 2019-05-21 12:49 | RAD_ITS ---
STUDY: X-RAY CHEST REASON FOR EXAM: Male, 78 years old. Shortness of breath. TECHNIQUE: AP and lateral views of the chest. COMPARISON: Comparison is made with prior study dated May 19, 2019. FINDINGS: EKG electrodes are seen. Once again, there is a infiltration in the left lung with loss of volume of the left hemithorax. Stable bilateral pleural plaque calcification. Normal size heart. Normal mediastinum and jared. Normal visualized pulmonary arteries. There is atherosclerotic calcification of the aortic arch with tortuosity. There are diffuse degenerative changes of the visualized thoracic spine. Normal visualized ribs, clavicles, and shoulders. There is no demonstrated abnormality of the visualized soft tissue structures of the upper abdomen. RAD/Chest PA and Lateral IMPRESSION: Stable examination. Electronically Signed: Moreno Terry, at 15:35 EDT , Service support ,
--- NOTE | 2019-05-21 14:00 | NURSING ---
Was consulted to assess coccyx. patient is quite drowsy today. pt has a Mepilex dressing in place. was peeled back to assess. there is some dry flaky skin noted. most likely some areas of friction. reapplied the Mepilex at this time to protect tissues. will monitor. No further wound care needed at this time.
[2019-05-21] MEDS: APIXABAN 2.5 MG TABLET PO ×2 (14:06→21:42)
[2019-05-21] MEDS: Mirtazapine 15 MG Tablet PO (21:42)
[2019-05-22 03:00] VITALS: PULSE 85
[2019-05-22 03:30] VITALS: BP 124/79; PULSE 82; RESP 24; TEMP 36.6; O2SAT 97
[2019-05-22 07:00] VITALS: PULSE 78
[2019-05-22 07:35] LABS: Anion Gap 4 (5-15); BUN 16 mg/dL (7-18); BUN/Creat Ratio 29.4 RATIO (10-20); Calcium,Total 8.4 mg/dL (8.5-10.1); Chloride 103 mmol/L (98-107); Creatinine, Serum 0.54 mg/dL (0.70-1.30); EST Glomerular Filtration Rate 154 mL/min (>60); Est Glom Filt Rate - Afr Amer 187 mL/min (>60); Estimated Creatinine Clearance 44.95 ml/min; Glucose 89 mg/dL (74-106); Potassium 4.3 mmol/L (3.5-5.1); Sodium Level 137 mmol/L (136-145)
[2019-05-22 07:57] LABS: Absolute Lymphocyte Count 0.81 X10^3/ul (0.83-4.51); Basophil# 0.05 X10^3/uL; Basophil% 0.6 % (0-1); Eosinophil# 0.11 X10^3/uL; Eosinophils% 1.3 % (0-5); Hematocrit 42.3 % (40-54); Hemoglobin 13.6 g/dl (13.0-16.5); Lymphocyte # 0.81 X10^3/ul (4.0); Lymphocyte % 9.4 % (19-41); Mean Corp Hgb Conc 32.2 g/gl (32-36); Mean Corpuscular Volume 90.2 fL (80-94); Mean Platelet Vol. 10.8 fl (6.2-12.0); Monocyte# 0.71 X10^3/uL; Monocyte% 8.2 % (0-10); Neutrophil # 6.97 X10^3/uL (2.7-7.7); Neutrophil % 80.4 % (47-70); Platelet Count 317 K/mm3 (150-450); RBC Distribution Width CV 14.2 % (11.6-14.6); RBC Distribution Width SD 46.4 fl (35.1-43.9); Red Blood Count 4.69 M/mm3 (4.6-6.2); White Blood Count 8.7 K/mm3 (4.4-11.0)
[2019-05-22 08:03] LABS: POSITIVE COUNT NO; POSITIVE DIFFERENTIAL NO; POSITIVE MORPHOLOGY NO
[2019-05-22 09:12] VITALS: BP 111/65; PULSE 82; RESP 14; TEMP 36.7; O2SAT 97
[2019-05-22 09:17] VITALS: PULSE 80
[2019-05-22] MEDS: Digoxin 125 MCG Tablet PO (09:17)
[2019-05-22] MEDS: APIXABAN 2.5 MG TABLET PO (09:18)
--- NOTE | 2019-05-22 11:22 | PCM.TXEXTCAR ---
- Diet 05/19/19 14:01 Diet: Regular Diet Food consistency:: Regular Liquid Consistency:: Regular/Thin Is pt able to select menu?: No - Routine Orders/Code Status Enema Type: Fleetz Enema Frequency: Daily PRN Suppository Type: Dulcolax 10mg Suppository Frequency: Daily PRN O2 Frequency: PRN Keep PO Greater than or Equal to (%): 90 Code Status: DNC-A - Wound(s) BLE Wound Type: SCRATCHES - Therapies Weight Bearing: Weight bearing as tolerated Physical Therapy: Eval and Treat Occupational Therapy: Eval and Treat - Allergies/Procedures Done in Hospital Allergies/Adverse Reactions: Allergies No Known Allergies Allergy (Verified 05/19/19 12:39) Procedures: None - Type of Care/Length of Stay Estimated LOS: More Than 30 Days Type of Care Needed: Skilled Rehab Potential: Poor Prognosis: Fair - Additional Orders/Day of Discharge Additional Orders: aspirin stopped o/a of hemoptysis. Eliquis reduced to 2.5mg bid. Monitor closely for recurrence of hemoptysis. Day of Discharge: 05/22/19 - Dietary and Speech Recommendations Dietitian Recommendations/Changes: Recommend continue regular diet. Recommend continue Ensure Enlive with medpass. - Follow Up Care Primary Care Physician: NOT,DEFINED [NON-STAFF] - Please Follow Up With: Jett Nguyen MD When: one week
--- NOTE | 2019-05-22 11:25 | PCM.DC.SUM ---
Discharge Date and Diagnosis - Problem List Patient Problems: Active and Suspected Problems Severe sepsis (Acute) Hypotension (Acute) Urinary tract infection (Acute) Date of Admission: 05/19/19 Date of Discharge: 05/22/19 - Primary Discharge Diagnosis Active and Suspected Problems Severe sepsis (Acute) Hypotension (Acute) Urinary tract infection (Acute) - Secondary Discharge Diagnosis Chronic Problems Atrial fibrillation (Chronic) History of chronic obstructive pulmonary disease (Chronic) On continuous oral anticoagulation (Chronic) Hospital Course and Treatment Imaging Results: Diagnostic Data Chest X-Ray 05/21/19 12:49 IMPRESSION: Stable examination. Electronically Signed: Moreno Puenteaimee, at 15:35 EDT , Service support , Consultations 05/19/19 14:00 Consult: Onc/Wound/mineral surveying technician Routine Comment: Operations: None Procedures: None Summary of Care Provided: The patient is a 78 year old M with past medical history as listed. He was admitted through the ED on 05/19/2019 with a complaint of weakness. Patient lived alone and had been having difficulty ambulating. He had recently been discharged from [facility] after he had a mechanical fall; he was also found to have right rib fractures as well as A. fib with RVR. The weakness subsequently started after discharge from [facility] and symptoms have persisted. He had also had a chronic cough with brownish colored sputum since been diagnosed with cancer 2 years prior to admission. However on admission he was noted to have coughed up blood twice. On admission, he met SIRS criteria for sepsis and also had UTI as he was managed for sepsis due to UTI. He was transiently hypotensive which responded to IV fluids. He was started on IV ceftriaxone. It was held on admission on account of hemoptysis. However hemoptysis subsequently resolved and did not occurred during admission again. This was likely due to the rib fractures that he had sustained after he fell prior to this admission. Patient's SIRS criteria resolved. However he remained tachypneic during admission because he was seen to be taking shallow breaths with poor respiratory efforts due to generalized weakness. Chest physiotherapy was ordered and incentive spirometry was also ordered as well as breathing treatments. Patient's urine culture Providencia rettgeri which was sensitive to ceftriaxone. Patient is improved significantly and his mentation became much better. His Eliquis was restarted and was discharged to a intermediate after being evaluated by PT OT on 05/22/2019. He was discharged with a prescription for p.o. cefdinir 300 mg twice daily for 4 days to give a total of 7 days of antibiotics. He is follow-up with his primary care doctor and also to follow-up with Dr. Nguyen to establish cardiology relationship for his A. fib. Patient seen and examined prior to discharge. He had no complaints and felt much better. Review of systems as otherwise negative. Labs and vitals reviewed. Home medications reviewed and reconciled. o/e: Vital Signs Height 5 ft 5 in Weight: 115 lb 1.301 oz Weight in Pounds 115.1 lbs Pulse Ox 97 Temperature 98.0 F Pulse Rate 80 Respiratory Rate 14 Blood Pressure 111/65 Blood Pressure Position Semi-Fowlers General: Alert, Oriented x3, Cooperative, No apparent distress, Lethargy has improved today HEENT: Atraumatic, PERRLA, EOMI, Normocephalic Oral: Moist Mucosa Neck: Supple, No JVD, Negative Carotid Bruits Lungs: - - decreased breath sounds bibasally, no wheezes or rales or crackles, mildly tachypneic Cardiovascular: Regular rate, Regular Rhythm, Normal S1, Normal S2, No murmurs Abdomen: Bowel Sounds Present, Soft, Non Tender, Non-Distended Extremities: No clubbing, No cyanosis, No edema, Capillary Refill Less than 3 Seconds Skin: No rashes, No breakdown Musculoskeletal: No Tenderness to Palpation of Joints or Extremities Lymphatic: No Cervical, Supraclavicular, or Inguinal Adenopathy Neurological: Cranial nerves II-XII grossly intact, Neuro grossly intact, Motor Exam 5/5 strength throughout Psych/Mental Status: Normal Affect, Appropriate, Alert and oriented to time, place, person, mood and affect Plan as above. Patient counseled to stop eliquis if hemotypsis recurred. Aspirin was stopped at discharge to reduce risk of bleeding as he was also on eliquis. Patient Problems: Active and Suspected Problems Severe sepsis (Acute) Hypotension (Acute) Urinary tract infection (Acute) - Physical Exam Vital Signs Temp Pulse Resp BP Pulse Ox 98.0 F 80 14 111/65 97 05/22/19 09:12 05/22/19 09:17 05/22/19 09:12 05/22/19 09:12 05/22/19 09:12 Oxygen Delivery Method Room Air Weight: 115 lb 1.301 oz Body Mass Index (BMI) 19.1 Intake and Output for Last 24 Hours 05/20/19 05/21/19 05/22/19 23:59 23:59 23:59 Intake Total 5064 / 5064 2151 / 2151 120 / 120 Output Total 2700 / 2700 1350 / 1350 Balance 2364 / 2364 801 / 801 120 / 120 Microbiology Past 72 Hours 05/19/19 12:00 Urine Culture - Final Urine Catheter - Serrato Providencia rettgeri Laboratory Tests Past 24 Hrs 05/22/19 05/22/19 07:05 07:05 WBC 8.7 RBC 4.69 Hgb 13.6 Hct 42.3 MCV 90.2 MCH 29.0 MCHC 32.2 RDW 14.2 RDW Differential 46.4 H Plt Count 317 MPV 10.8 Immature Gran % (Auto) 0.100 Neut % (Auto) 80.4 H Lymph % (Auto) 9.4 L [place] % (Auto) 8.2 Eos % (Auto) 1.3 Baso % (Auto) 0.6 Absolute Neuts (auto) 7.0 Absolute Lymphs (auto) 0.81 L Total Counted Not Reportable Sodium 137 Potassium 4.3 Chloride 103 Carbon Dioxide 30.0 Anion Gap 4 L BUN 16 Creatinine 0.54 L Estim Creat Clear Calc 44.95 Est GFR (MDRD) Af Amer 187 Est GFR (MDRD) Non-Af 154 BUN/Creatinine Ratio 29.4 H Glucose 89 Calcium 8.4 L Discharge Diet: Low fat/ Low Cholesterol Discharge Activity: Return to Normal Activity Weight Bearing Status: Weight bearing as tolerated Call your doctor if you observe: Fever of 101 or Higher, Dizziness Home Medications: Medications to take at Discharge Cholecalciferol (VIT D3) [Vitamin D3] 1,000 unit PO DAILY 05/19/19 Digoxin 125 mcg PO DAILY 05/19/19 Docusate Sodium [Stool Softener] 50 mg PO PRN PRN 05/19/19 Apixaban [Eliquis] 2.5 mg PO BID #60 tab 05/22/19 Cefdinir 300 mg PO BID #8 cap 07/11/19 Following Prescrptions Were Given to Patient: Cefdinir 300 mg PO BID #8 cap Prescription Printed Apixaban [Eliquis] 2.5 mg PO BID #60 tab Prescription Printed Primary Care Physician: NOT,DEFINED [NON-STAFF] - Please Follow Up With: Jett Nguyen MD When: one week Disposition[facility] Jail facility Minutes spent on discharge:: 40 Patient Condition:: Fair Medical Necessity - Tobacco Use Smoking Status: Former smoker Tobacco Use: Cigarettes Meaningful Use Info Meaningful Use Diagnoses (Choose all that apply): None applicable Code Visit Inpatient E&M: 72423 Disch Hosp
--- NOTE | 2019-05-22 13:00 | CASEMGMT ---
Patient was approved to go to TCU. PATRICK notified physician and she will send patient today. SW notified patient and also called his son letting him know about d/c to TCU today. SW notified RN and racing secretary. Orders copied. Plan: d/c to [facility] under skilled level of care. Savannah EVANS
[2019-05-22 15:14] VITALS: BP 101/64; PULSE 88; RESP 14; TEMP 36.9; O2SAT 100
== END 2019-05-22 15:37 | disposition skilled nursing facility (03) | DRG 872 ==
LOC: ED 13:08 → PCU 14:01
PROVIDERS: Admitting Provider Hospitalist; Emergency Provider Emergency Medicine; Visit Provider Student in an Organized Health Care Education/Training Program
DX: A41.9 Sepsis, unspecified organism (principal); R04.2 Hemoptysis; N30.00 Acute cystitis without hematuria; Z68.1 Body mass index [BMI] 19.9 or less, adult; E44.0 Moderate protein-calorie malnutrition; R65.20 Severe sepsis without septic shock; I48.2 Chronic atrial fibrillation; Z66 Do not resuscitate; J44.9 Chronic obstructive pulmonary disease, unspecified; S22.41XD Multiple fractures of ribs, right side, subsequent encounter for fracture with routine healing; W19.XXXD Unspecified fall, subsequent encounter; Z92.21 Personal history of antineoplastic chemotherapy; Z87.891 Personal history of nicotine dependence; Z92.3 Personal history of irradiation; Z85.118 Personal history of other malignant neoplasm of bronchus and lung
CPT/HCPCS: 36415; 51702; 71045; 71046; 80048; 80053; 81001; 82550; 83605; 84484; 85025; 85610; 85730; 87040; 87077; 87086; 87088; 87186; 93005; 97162; 97166; 97802; 99251; 99285; J7030; J7040; A4216; G0463; J0696

== ENCOUNTER 2019-05-22 15:42 | Inpatient (IN) | payer MEDICARE, SELFPAY ==
[2019-05-19 14:12] VITALS: BMI 19.1
--- NOTE | 2019-05-22 16:00 | NURSING ---
Pt arrived from PCU in , assisted to bed x2 assist, pt attends soaked and gown wet. Tracey care given and dry attends placed, clean gown placed. Per CELLAR PUMPER pt slept most of the day and did not have lunch.Pt situated in bed and given yogurt, pollo doones and cranberry juice. Ate all without swallowing issues. Alert, oriented x2, knew day and month but thought it was September.
[2019-05-22 16:04] VITALS: BP 120/77; PULSE 88; RESP 16; TEMP 36.6; O2SAT 96
--- NOTE | 2019-05-22 16:09 | NURSING ---
Patient admitted to room 22 from PCU via bed. Oriented to room and call light system explained.
[2019-05-22 16:21] VITALS: BMI 18.8
[2019-05-22 16:29] VITALS: BMI 18.9
[2019-05-22] MEDS: APIXABAN 2.5 MG TABLET PO (17:45)
[2019-05-22] MEDS: Cefdinir 300 MG Capsule PO (17:45)
[2019-05-22] MEDS: Menthol/Lanolin/Calamine/Znox 113 GM Tube 1 APPLIC TOPICAL (21:26)
--- NOTE | 2019-05-22 22:37 | HP.PCM_ITS ---
Problem List (1) Debility Status: Acute (2) Weakness Status: Acute (3) Lung cancer Status: Chronic (4) Right rib fracture Status: Acute (5) COPD (chronic obstructive pulmonary disease) Status: Chronic (6) Hemoptysis Status: Acute (7) Atrial fibrillation Status: Chronic (8) Severe sepsis Status: Acute (9) Hypotension Status: Acute (10) Urinary tract infection Status: Acute History of Present Illness Date of Admission: 05/22/19 Chief Complaint: Here for rehabilitation, strengthening, prior to discharge home alone. The patient is a 78 year old Male with below past medical history presented to [facility] Emergency Department 05/19/2019 with weakness. 05/19/2019 EKG normal sinus rhythm, possible left atrial enlargement, low voltage QRS, ST&T wave abnormality, consider inferolateral ischemia. Gradual onset, decreased appetite, decreased activity level. Generalized weakness. Recent [facility] admission for fall, right rib fracture, atrial fibrillation with rapid ventricular response. He has history of lung cancer. Urine dark. NS 1 liter IV bolus given for hypotension. UA c/w urinary tract infection, urine culture sent. Rocephin 1GM IV given. Lactate 1.9. 05/19/2019 Admit to Hospital. Hemoptysis. Pancultured. Rocephin IV for urinary tract infection. Eliquis, aspirin stopped due to hemoptysis. Digoxin for rate control of atrial fibrillation. 05/21/2019 Urine culture grew Providencia rettgeri sensitive to Rocephin. Patient still lethargic, tachypneic. Hemoptysis improved, pulmonary toilet ordered. Eliquis restarted. 05/21/2019 Chest X-ray showed left lung infiltrate, with volume loss. Stable exam. Rocephin deescalated to Cefdinir to finish 7 day course. 05/22/2019 Admit to TCU with debility, here for rehabilitation, strengthening, prior to discharge home alone. Past Medical History Past Medical History (Chronic Problems): Chronic Problems Lung cancer (Chronic) COPD (chronic obstructive pulmonary disease) (Chronic) Atrial fibrillation (Chronic) History of chronic obstructive pulmonary disease (Chronic) On continuous oral anticoagulation (Chronic) Allergies No Known Allergies Allergy (Verified 05/19/19 12:39) Home Medications: Ambulatory Orders Medication Instructions Recorded Cholecalciferol (VIT D3) [Vitamin 1,000 unit PO DAILY 05/19/19 D3] Digoxin 125 mcg PO DAILY 05/19/19 Docusate Sodium [Stool Softener] 50 mg PO PRN PRN 05/19/19 Apixaban [Eliquis] 2.5 mg PO BID 05/22/19 Cefdinir 300 mg PO BID 05/22/19 Surgical History: appendectomy Psychiatric History: No pertinent psych hx Lives: Alone Smoking Status: Former smoker Tobacco Use: Non-smoker Alcohol: None Drugs: None - *Family History Maternal History Items: No pertinent history Paternal History Items: No pertinent history Review of Systems Constitutional: Reports: Weakness. Denies: Chills, Fever, Weight Change HEENT: Denies: Head Aches, Sinus Congestion, Sinus Drainage Cardiovascular: Denies: Chest Pain, Palpitations Respiratory: Denies: Cough, Shortness of breath at rest, Sputum production Gastrointestinal: Denies: Abdominal Pain, Nausea, Vomiting Genitourinary: Denies: Dysuria Musculoskeletal: Denies: Joint Pain, Joint Tenderness Skin: Denies: Rash, Wounds Neurological: Denies: Numbness, Tingling, Focal weakness Psychiatric: Denies: Anxiety, Depression, Homicidal Ideations, Suicidal Ideations Hematologic/ Lymphatic: Denies: Easy Bruising, Easy Bleeding VTE Information - Inpt Only VTE Present on Admission: No VTE Mechan Device Prophylaxis: Knee High ROSAURA Hose VTE Pharm Prophylaxis ordered?: No Reason prophylaxis not ordered:: Treatment Not Indicated Patient Problems: Active and Suspected Problems Debility (Acute) Weakness (Acute) Right rib fracture (Acute) - Physical Exam General: Alert, Oriented x3, Cooperative HEENT: Atraumatic, PERRLA, EOMI, Normocephalic Neck: Supple, No JVD, Negative Carotid Bruits Lungs: Normal air movement, Diminished - Left base. Cardiovascular: Regular rate, No murmurs Abdomen: Bowel Sounds Present, Soft, Non Tender Extremities: No edema, Capillary Refill Less than 3 Seconds Skin: No rashes, No breakdown Musculoskeletal: No Tenderness to Palpation of Joints or Extremities Neurological: Cranial nerves II-XII grossly intact Psych/Mental Status: Normal Affect, Appropriate Vital Signs Temp Pulse Resp BP Pulse Ox 97.9 F 88 16 120/77 96 05/22/19 16:04 05/22/19 16:04 05/22/19 16:04 05/22/19 16:04 05/22/19 16:04 Oxygen Delivery Method Room Air Weight: 53.15 kg Body Mass Index (BMI) 18.8 Intake and Output for Last 24 Hours 05/20/19 05/21/19 05/22/19 23:59 23:59 23:59 Intake Total 300 / 300 Balance 300 / 300 Assessment/Plan All Active Problems Debility (Acute) Weakness (Acute) Right rib fracture (Acute) Hemoptysis (Acute) Severe sepsis (Acute) Hypotension (Acute) Urinary tract infection (Acute) 78 year old male with below past medical history hospitalized for severe sepsis secondary to urinary tract infection, complicated by hemoptysis, atrial fibrillation, admitted to TCU with debility, here for rehabilitation, strengthening, prior to discharge home alone. * Debility - PT/OT. * Pain - Tylenol 1000MG Q6H PRN mild pain. * Bowel - Miralax 17GM daily, Senna/colace 1 tablet BID, Dulcolax 10MG daily PRN. * Pneumonia vaccination - Administer Prevnar 13 and/or Pneumovax 23 as necessary. * DVT prophylaxis - Not necessary, already on Apixaban. * Atrial Fibrillation - Digoxin 125MCG daily, Eliquis 2.5MG BID. * P. Rettgeri UTI - Cefdinir 300MG BID thru 05/26/2019. * Vitamin D deficiency - D3 1000IU daily. * Skin irritation - Calmoseptine TID. * Right rib fracture - Pain control. * Hemoptysis - Resolved. * Lung cancer - no sign of recurrence. * COPD - Not on medication, monitor.
[2019-05-23 05:57] LABS: Absolute Lymphocyte Count 0.87 X10^3/ul (0.83-4.51); Absolute Neutrophil Count 7.6 X10^3/uL (2.0-7.7); Basophil# 0.04 X10^3/uL; Basophil% 0.4 % (0-1); Hematocrit 43.6 % (40-54); Hemoglobin 13.7 g/dl (13.0-16.5); Lymphocyte # 0.87 X10^3/ul (4.0); Lymphocyte % 9.1 % (19-41); Mean Corp Hgb Conc 31.4 g/gl (32-36); Mean Corpuscular Hgb 27.9 pg (27.0-32.0); Mean Corpuscular Volume 88.8 fL (80-94); Mean Platelet Vol. 10.4 fl (6.2-12.0); Monocyte# 0.93 X10^3/uL; Monocyte% 9.7 % (0-10); Neutrophil # 7.64 X10^3/uL (2.7-7.7); Neutrophil % 79.5 % (47-70); Platelet Count 377 K/mm3 (150-450); RBC Distribution Width CV 14.2 % (11.6-14.6); RBC Distribution Width SD 45.7 fl (35.1-43.9); Red Blood Count 4.91 M/mm3 (4.6-6.2); White Blood Count 9.6 K/mm3 (4.4-11.0)
[2019-05-23 06:07] LABS: POSITIVE COUNT NO; POSITIVE DIFFERENTIAL NO; POSITIVE MORPHOLOGY NO
[2019-05-23 06:15] LABS: Anion Gap 6 (5-15); BUN 17 mg/dL (7-18); BUN/Creat Ratio 28.5 RATIO (10-20); Calcium,Total 8.3 mg/dL (8.5-10.1); Chloride 102 mmol/L (98-107); EST Glomerular Filtration Rate 139 mL/min (>60); Est Glom Filt Rate - Afr Amer 169 mL/min (>60); Estimated Creatinine Clearance 45.77 ml/min; Glucose 89 mg/dL (74-106); Potassium 4.3 mmol/L (3.5-5.1); Sodium Level 138 mmol/L (136-145)
[2019-05-23] MEDS: Menthol/Lanolin/Calamine/Znox 113 GM Tube 1 APPLIC TOPICAL ×3 (06:51→22:03)
[2019-05-23] MEDS: Cefdinir 300 MG Capsule PO ×2 (06:52→17:34)
[2019-05-23] MEDS: APIXABAN 2.5 MG TABLET PO ×2 (06:52→17:34)
[2019-05-23] MEDS: Senna/Docusate Sodium 1 Tablet PO ×2 (06:52→17:34)
[2019-05-23 06:53] VITALS: BP 93/65; PULSE 98
[2019-05-23] MEDS: Digoxin 125 MCG Tablet PO (06:53)
[2019-05-23] MEDS: Tuberculin,Purif.prot.deriv. 50 TU/ML Vial 5 ML ID (10:28)
[2019-05-23 16:00] VITALS: BP 101/65; PULSE 94; RESP 18; TEMP 37.4; O2SAT 96
--- NOTE | 2019-05-23 17:09 | CASEMGMT ---
Insurance: Continued stay review faxed to [employer]. Auth #[id number].
[2019-05-24] VITALS (10 sets, daily range): BP systolic 80–98; BP diastolic 51–66; PULSE 81–98; RESP 20–26; TEMP 36.9–37.2; O2SAT 94–96
[2019-05-24] MEDS: Digoxin 125 MCG Tablet PO (05:11)
[2019-05-24] MEDS: APIXABAN 2.5 MG TABLET PO ×2 (05:11→17:07)
[2019-05-24] MEDS: Cefdinir 300 MG Capsule PO ×2 (05:12→18:19)
[2019-05-24] MEDS: Senna/Docusate Sodium 1 Tablet PO (05:12)
[2019-05-24] MEDS: Menthol/Lanolin/Calamine/Znox 113 GM Tube 1 APPLIC TOPICAL ×3 (05:15→20:36)
[2019-05-24 19:01] LABS: Bedside Glucose 118 mg/dL (70-110)
--- NOTE | 2019-05-24 19:23 | EKG12_ITS ---
Test Reason : GEN ILLNESS Blood Pressure : / mmHG Vent. Rate : 074 BPM Atrial Rate : 286 BPM P-R Int : 000 ms QRS Dur : 090 ms QT Int : 352 ms P-R-T Axes : 256 014 251 degrees QTc Int : 390 ms Atrial flutter with variable A-V block Low voltage QRS ST & T wave abnormality, consider inferior ischemia ST & T wave abnormality, consider anterolateral ischemia Abnormal ECG Confirmed by DEION FOWLER, AMEYA ([id number]), medical editor BERNABE TONG ([id number]) on 05/28/2019 8:11:28 AM Referred By: MAINE Confirmed By:AMEYA ALBARRAN MD
--- NOTE | 2019-05-24 19:29 | NURSING ---
This nurse asked by machine stoppage frequency checker to assess pt who has became diaphoretic, and had an Emesis during routine care. This nures into access, Pt clammy, and not responding when questioned. Pt heart rate tachy and very irregular when auscutating heart and lungs. pt tachypnea with a BP of 83/55. This nurse asked RN jesu to Obtain STAT EKG. EKG ordered by RN and CLAMMER called d/t EKG and condition change.
--- NOTE | 2019-05-24 19:30 | NURSING ---
Addendum entered by Azalea Willams 05/24/19 20:44: Patient's son Lobito updated Addendum entered by Azalea Willams 05/24/19 20:30: Dr. Willoughby notified of lab results. Orders given to keep eye on troponin. Original Note: Patient found to be lethargic and slow to respond. Patient very sweaty. Patient has been having emesis for the past hour. Per report patient has not been himself. Patient denies pain. Heart rate irregular at this time. EKG ordered. PLUMBING INSTALLER called due to patient's change in neurological status and results from EKG. Per Dr. Willoughby orders given for CBC, CMP, and Troponin series. NS 75 cc/hr.
[2019-05-24 19:35] LABS: Bedside Glucose 99 mg/dL (70-110)
--- NOTE | 2019-05-24 19:57 | NURSING ---
Addendum entered by Azalea Willams 05/25/19 03:29: Son Lobito called and updated that patient was sent down to ER. Addendum entered by Azalea Willams 05/25/19 03:22: Patient taken down to ER via bed. Report given to LICHA Browne. Addendum entered by Azalea Willams 05/25/19 03:02: Dr. Lei notified of continuing elevated troponins. BP 91/68 HR 79 and irregular T 98.6 Temporal, R 24, O2 94. Patient continues to have fluids running at 60 cc/hr. Orders given to send patient to ER. Original Note: Dr. Lei notified of patient's condition and of INFORMATION TECHNOLOGY DATA ANALYST. Orders given to continue to monitor patient.
[2019-05-24] MEDS: 0.9% Normal Saline 1,000 ML 75 ML IV (20:00)
[2019-05-24 20:04] LABS: Absolute Lymphocyte Count 0.93 X10^3/ul (0.83-4.51); Absolute Neutrophil Count 9.2 X10^3/uL (2.0-7.7); Basophil# 0.06 X10^3/uL; Basophil% 0.5 % (0-1); Eosinophil# 0.07 X10^3/uL; Eosinophils% 0.6 % (0-5); Hemoglobin 14.2 g/dl (13.0-16.5); Lymphocyte # 0.93 X10^3/ul (4.0); Lymphocyte % 8.3 % (19-41); Mean Corp Hgb Conc 32.3 g/gl (32-36); Mean Corpuscular Hgb 29.1 pg (27.0-32.0); Mean Corpuscular Volume 90.2 fL (80-94); Mean Platelet Vol. 10.2 fl (6.2-12.0); Monocyte# 1.04 X10^3/uL; Monocyte% 9.2 % (0-10); Neutrophil # 9.15 X10^3/uL (2.7-7.7); Neutrophil % 81.2 % (47-70); Platelet Count 351 K/mm3 (150-450); Red Blood Count 4.88 M/mm3 (4.6-6.2); White Blood Count 11.3 K/mm3 (4.4-11.0)
[2019-05-24 20:05] LABS: POSITIVE COUNT NO; POSITIVE DIFFERENTIAL NO; POSITIVE MORPHOLOGY NO
[2019-05-24 20:25] LABS: ALB/GLOB Ratio 0.4 RATIO (0.9-2.4); AST(SGOT) 26 U/L (15-37); Alanine Aminotransfer ALT/SGPT 30 U/L (16-61); Albumin, Serum 2.1 g/dL (3.2-5.0); Alkaline Phosphatase 144 U/L (45-117); Anion Gap 3 (5-15); BUN 26 mg/dL (7-18); BUN/Creat Ratio 35.8 RATIO (10-20); Calcium,Total 8.5 mg/dL (8.5-10.1); Chloride 101 mmol/L (98-107); Creatinine, Serum 0.73 mg/dL (0.70-1.30); EST Glomerular Filtration Rate 111 mL/min (>60); Est Glom Filt Rate - Afr Amer 134 mL/min (>60); Estimated Creatinine Clearance 45.85 ml/min; Glucose 84 mg/dL (74-106); Potassium 4.6 mmol/L (3.5-5.1); Protein, Total 7.1 g/dL (6.4-8.2); Sodium Level 137 mmol/L (136-145)
--- NOTE | 2019-05-24 23:20 | NURSING ---
Dr. Willoughby Notified of Troponin level of 0.122 which is elevated from last troponin level of 0.062. Orders given to call Dr. Lei on the next elevated troponin level.
[2019-05-25] VITALS (7 sets, daily range): BP systolic 85–108; BP diastolic 54–70; PULSE 75–90; RESP 24–26; TEMP 36.8–37; O2SAT 94–98
[2019-05-25] MEDS: Digoxin 125 MCG Tablet PO (10:57)
[2019-05-25] MEDS: APIXABAN 2.5 MG TABLET PO ×2 (10:57→16:56)
[2019-05-25] MEDS: Cefdinir 300 MG Capsule PO ×2 (10:57→16:55)
[2019-05-25] MEDS: Senna/Docusate Sodium 1 Tablet PO (10:58)
[2019-05-25] MEDS: Menthol/Lanolin/Calamine/Znox 113 GM Tube 1 APPLIC TOPICAL ×2 (11:53→20:00)
[2019-05-26] MEDS: Menthol/Lanolin/Calamine/Znox 113 GM Tube 1 APPLIC TOPICAL ×3 (06:50→20:12)
[2019-05-26] MEDS: APIXABAN 2.5 MG TABLET PO ×2 (06:50→18:01)
[2019-05-26 06:51] VITALS: BP 139/85; PULSE 97
[2019-05-26] MEDS: Senna/Docusate Sodium 1 Tablet PO ×2 (06:51→18:01)
[2019-05-26] MEDS: Digoxin 125 MCG Tablet PO (06:51)
[2019-05-26] MEDS: Cefdinir 300 MG Capsule PO (09:52)
--- NOTE | 2019-05-26 14:55 | CASEMGMT ---
Insurance: TC from Priscilla at [facility] ([facility]). Next update due 05/30 with anticipated D/C plan. Auth # [id number].
[2019-05-26 15:26] VITALS: BP 101/63; PULSE 95; RESP 16; TEMP 36.7; O2SAT 96
[2019-05-27] MEDS: Menthol/Lanolin/Calamine/Znox 113 GM Tube 1 APPLIC TOPICAL ×3 (05:45→20:49)
[2019-05-27 05:46] VITALS: BP 133/87; PULSE 85
[2019-05-27] MEDS: Digoxin 125 MCG Tablet PO (05:46)
[2019-05-27] MEDS: Senna/Docusate Sodium 1 Tablet PO (05:46)
[2019-05-27] MEDS: APIXABAN 2.5 MG TABLET PO ×2 (05:47→18:33)
[2019-05-27 16:14] VITALS: BP 94/58; PULSE 76; RESP 16; TEMP 37.1; O2SAT 95
--- NOTE | 2019-05-27 16:44 | CASEMGMT ---
Social Work Per therapy, pt is showing improvement physically and cognitively. Cognitive deficits r/t to UTI - slowly improving with tx; however, completed BIMS with pt and scored 3/15. Therapy anticipating safe discharge home living alone with continued therapy in TCU. Will continue to follow for safe discharge planning. Ely Lopez, MEDICAL CLAIMS REPRESENTATIVE ASSEMBLING MOTOR BUILDER
--- NOTE | 2019-05-27 16:50 | CHAPLAIN ---
Type of Pastoral Visit _x__ Initial Visit ___ Follow-up Visit ___ On-call Visit ___ General Patient Visit ___ Spiritual Assessment ___ Family Conference ___ Bereavement ___ Rapid Response ___ Code Blue ___ Other (describe below) Pastoral Care Referral From _x__ Patient ___ Family ___ Nurse ___ Physician ___ Fws Faculty Assistant ___ Brand Strategist ___ Other (describe below) Sacrament/Intervention ___ Active listening ___ Anointing ___ Mormon ___ Bereavement ___ Communion ___ Anna Marie exploration ___ ___ Life review _x__ Prayer ___ Reconciliation ___ Sacrament of Sick _x__ Supportive presence ___ Wedding ___ Other (describe below) Pastoral Comments
[2019-05-27] MEDS: 0.9% Normal Saline 1,000 ML 999 ML IV (19:12)
[2019-05-27 20:58] VITALS: BP 87/54; PULSE 94
--- NOTE | 2019-05-27 20:58 | NURSING ---
Dr Lei aware of B/P after bolus N.N.O.
--- NOTE | 2019-05-27 23:39 | NURSING ---
[id number] TECHNICIAN HELPER INSTRUMENT reported to RN she entered room to find SL lying bedside pt in bed. Catheter intact. No bleeding noted from right forearm. Pt AOx2.
[2019-05-28 06:03] VITALS: BP 113/78; PULSE 89
[2019-05-28] MEDS: Digoxin 125 MCG Tablet PO (06:03)
[2019-05-28] MEDS: APIXABAN 2.5 MG TABLET PO ×2 (06:03→18:07)
[2019-05-28] MEDS: Menthol/Lanolin/Calamine/Znox 113 GM Tube 1 APPLIC TOPICAL ×3 (06:04→20:24)
[2019-05-28] MEDS: Senna/Docusate Sodium 1 Tablet PO ×2 (06:04→18:07)
[2019-05-28 08:36] VITALS: PULSE 98; RESP 18; O2SAT 98
[2019-05-28 15:46] VITALS: BP 115/73; PULSE 85; RESP 16; TEMP 36.8; O2SAT 95
--- NOTE | 2019-05-28 18:21 | NURSING ---
dr Lei updated on therapy reporting pt with shuffling gait with transfers that require pt to turn and sit in a chair or on toilet. Pt with much difficulty following instructions to get him to turn and sit. new order for sinemet. Nursing staff has noted this as well.
[2019-05-29 06:12] VITALS: BP 110/70; PULSE 80
[2019-05-29] MEDS: Digoxin 125 MCG Tablet PO (06:12)
[2019-05-29] MEDS: Senna/Docusate Sodium 1 Tablet PO (06:12)
[2019-05-29] MEDS: Carbidopa/Levodopa 25/100 Tablet PO ×3 (06:13→16:54)
[2019-05-29] MEDS: APIXABAN 2.5 MG TABLET PO ×2 (06:13→16:54)
[2019-05-29] MEDS: Menthol/Lanolin/Calamine/Znox 113 GM Tube 1 APPLIC TOPICAL ×3 (06:15→20:16)
[2019-05-29 15:50] VITALS: BP 98/60; PULSE 92; RESP 20; TEMP 37; O2SAT 97
--- NOTE | 2019-05-29 15:51 | CASEMGMT ---
Social Work Spoke with son about discharge plans for pt. Son recognizes pt is not ready to discharge and would not be safe home alone. Relayed to son therapy is continuing working with pt to reach the goal of prior independence and pt is improving currently. Spoke with son about other options - private duty aides, [place], SNF. Son stated pt may qualify for Medicaid and could transfer to [facility] ([facility]), if approved, for further therapy. Son is currently working on getting access to pts bank accounts to be able to provide the financial info for Medicaid. SW to leave Medicaid application and info in pts room for son to get during next visit. Offered assistance with Medicaid pattie and further resources if pt is not eligible. Son appreciated information and being proactive on DC plans. Will continue to follow. CRISTINA AlcarazW
[2019-05-30 05:22] VITALS: BP 100/60; PULSE 81
[2019-05-30] MEDS: Digoxin 125 MCG Tablet PO (05:22)
[2019-05-30] MEDS: Menthol/Lanolin/Calamine/Znox 113 GM Tube 1 APPLIC TOPICAL ×3 (05:22→20:51)
[2019-05-30] MEDS: APIXABAN 2.5 MG TABLET PO ×2 (05:22→16:33)
[2019-05-30] MEDS: Carbidopa/Levodopa 25/100 Tablet PO ×3 (05:22→16:33)
[2019-05-30] MEDS: Senna/Docusate Sodium 1 Tablet PO ×2 (05:22→16:33)
[2019-05-30 05:41] LABS: Absolute Neutrophil Count 7.1 X10^3/uL (2.0-7.7); Basophil% 1.1 % (0-1); Eosinophil# 0.11 X10^3/uL; Eosinophils% 1.2 % (0-5); Hematocrit 42.6 % (40-54); Hemoglobin 13.5 g/dL (13.0-16.5); Lymphocyte % 12.1 % (19-41); Mean Corp Hgb Conc 31.7 g/dL (32-36); Mean Corpuscular Hgb 28.9 pg (27.0-32.0); Mean Corpuscular Volume 91.2 fL (80-94); Mean Platelet Vol. 9.9 fl (6.2-12.0); Monocyte# 0.69 X10^3/uL; Monocyte% 7.6 % (0-10); Neutrophil # 7.05 X10^3/uL (2.7-7.7); Neutrophil % 77.5 % (47-70); Platelet Count 312 K/mm3 (150-450); RBC Distribution Width CV 14.4 % (11.6-14.6); RBC Distribution Width SD 47.1 fl (35.1-43.9); Red Blood Count 4.67 M/mm3 (4.6-6.2); White Blood Count 9.1 K/mm3 (4.4-11.0)
[2019-05-30 06:01] LABS: Anion Gap 6 (5-15); BUN 24 mg/dL (7-18); BUN/Creat Ratio 41.6 RATIO (10-20); Calcium,Total 8.7 mg/dL (8.5-10.1); Chloride 102 mmol/L (98-107); Creatinine, Serum 0.58 mg/dL (0.70-1.30); EST Glomerular Filtration Rate 145 mL/min (>60); Est Glom Filt Rate - Afr Amer 175 mL/min (>60); Glucose 80 mg/dL (74-106); Potassium 4.4 mmol/L (3.5-5.1); Sodium Level 139 mmol/L (136-145)
--- NOTE | 2019-05-30 10:46 | CASEMGMT ---
Insurance Clinical update faxed. Will await continued stay determination. Auth # [id number] MARIBELL Damon
[2019-05-30] MEDS: Tuberculin,Purif.prot.deriv. 50 TU/ML Vial 5 ML ID (10:48)
[2019-05-30 12:10] VITALS: PULSE 92
[2019-05-30 15:20] VITALS: BP 95/62; PULSE 83; RESP 16; TEMP 36.7; O2SAT 98
--- NOTE | 2019-05-30 17:48 | NURSING ---
Therapy reported that pt doing better with transfers since on sinemet. will continue to monitor.
--- NOTE | 2019-05-30 19:30 | NURSING ---
Addendum entered by Azalea Willams 05/30/19 20:05: Basil Robin notified of this. Addendum entered by Azalea Willams 05/30/19 20:04: Dr. Lei notified. No new orders given. Original Note: Nursing called into room. Patient is sitting on the floor. Patient denies hitting head. No injuries noted to patient. Legs and arms equal and within normal limits. Pupils equal and reactive. Patient has no complaints of pain. BP 101/67 P 99 R 18 T 98.2 O2 98 on room air.
[2019-05-31] MEDS: Carbidopa/Levodopa 25/100 Tablet PO ×3 (05:25→15:56)
[2019-05-31 05:26] VITALS: BP 112/70; PULSE 82
[2019-05-31] MEDS: APIXABAN 2.5 MG TABLET PO ×2 (05:26→17:52)
[2019-05-31] MEDS: Senna/Docusate Sodium 1 Tablet PO ×2 (05:26→17:51)
[2019-05-31] MEDS: Digoxin 125 MCG Tablet PO (05:26)
[2019-05-31] MEDS: Menthol/Lanolin/Calamine/Znox 113 GM Tube 1 APPLIC TOPICAL ×3 (05:29→22:46)
[2019-05-31 16:00] VITALS: BP 102/57; PULSE 94; RESP 17; TEMP 36.6; O2SAT 96
[2019-06-01] MEDS: Menthol/Lanolin/Calamine/Znox 113 GM Tube 1 APPLIC TOPICAL ×3 (05:31→20:14)
[2019-06-01] MEDS: APIXABAN 2.5 MG TABLET PO ×2 (05:32→16:38)
[2019-06-01] MEDS: Senna/Docusate Sodium 1 Tablet PO ×2 (05:32→16:38)
[2019-06-01 05:33] VITALS: BP 108/73; PULSE 88
[2019-06-01] MEDS: Digoxin 125 MCG Tablet PO (05:33)
[2019-06-01] MEDS: Carbidopa/Levodopa 25/100 Tablet PO ×3 (05:39→16:38)
[2019-06-01 16:00] VITALS: BP 112/68; PULSE 80; RESP 20; TEMP 36.6; O2SAT 97
[2019-06-02 05:44] VITALS: BP 110/69; PULSE 81
[2019-06-02] MEDS: APIXABAN 2.5 MG TABLET PO ×2 (05:44→16:58)
[2019-06-02] MEDS: Digoxin 125 MCG Tablet PO (05:44)
[2019-06-02] MEDS: Menthol/Lanolin/Calamine/Znox 113 GM Tube 1 APPLIC TOPICAL ×3 (05:44→19:37)
[2019-06-02] MEDS: Carbidopa/Levodopa 25/100 Tablet PO ×3 (05:44→16:58)
[2019-06-02] MEDS: Senna/Docusate Sodium 1 Tablet PO ×2 (05:44→16:58)
[2019-06-02 10:06] VITALS: PULSE 80
[2019-06-02 16:00] VITALS: BP 97/62; PULSE 89; RESP 16; TEMP 36.8; O2SAT 96
[2019-06-03] MEDS: APIXABAN 2.5 MG TABLET PO ×2 (05:18→17:04)
[2019-06-03 05:19] VITALS: BP 105/66; PULSE 80
[2019-06-03] MEDS: Digoxin 125 MCG Tablet PO (05:19)
[2019-06-03] MEDS: Carbidopa/Levodopa 25/100 Tablet PO ×3 (05:19→17:04)
[2019-06-03] MEDS: Menthol/Lanolin/Calamine/Znox 113 GM Tube 1 APPLIC TOPICAL ×3 (05:19→20:05)
[2019-06-03] MEDS: Senna/Docusate Sodium 1 Tablet PO ×2 (05:22→17:04)
--- NOTE | 2019-06-03 10:21 | PCM.PN.RX ---
<Gustavo Moreno C - Last Filed: 06/03/19 10:21> Progress Note - Pharmacy Subjective: [] TCU Admission Objective: Allergies No Known Allergies Allergy (Verified 05/25/19 03:17) Current Medications Generic Name Dose Route Start Last Admin Trade Name Freq PRN Reason Stop Dose Admin Acetaminophen 1,000 mg 05/22/19 22:53 Tylenol PO Q6H PRN PRN MILD PAIN (1-3) Apixaban 2.5 mg 05/22/19 18:00 06/03/19 05:18 Eliquis PO 2.5 mg BID DESIREE Administration Bisacodyl 10 mg 05/22/19 16:18 Dulcolax PO DAILY PRN PRN Constipation Calamine/Phenol 1 applic 05/22/19 22:00 06/03/19 05:19 Calmoseptine Ointment TOPICAL 1 applicatio TID DESIREE Administration Protocol Carbidopa/Levodopa 1 tablet 05/29/19 06:45 06/03/19 05:19 Sinemet PO 1 tablet TIDAC DESIREE Administration Cholecalciferol 1,000 unit 05/23/19 06:00 06/03/19 05:18 Vitamin D PO 1,000 unit DAILY DESIREE Administration Digoxin 125 mcg 05/23/19 06:00 06/03/19 05:19 Lanoxin PO 125 mcg DAILY DESIREE Administration Multi-Ingredient Cream 1 applic 05/23/19 22:00 06/02/19 19:39 Eucerin TOPICAL 1 applicatio 2200 DESIREE Administration Protocol Nutritional Formula (Lactose Free) 120 ml 05/23/19 17:00 06/03/19 05:19 Ensure Enlive PO 120 ml 4X/DAY DESIREE Administration Polyethylene Glycol 17 gm 05/23/19 06:00 06/03/19 05:19 Miralax PO Not Given DAILY DESIREE Senna/Docusate Sodium 1 tablet 05/23/19 06:00 06/03/19 05:22 Senokot-S, Tracey-Colace PO 1 tablet BID DESIREE Administration Problem List Debility (Acute) Weakness (Acute) Lung cancer (Chronic) Right rib fracture (Acute) COPD (chronic obstructive pulmonary disease) (Chronic) Vital Signs Temp Pulse Resp BP Pulse Ox 98.2 F 80 16 105/66 96 06/02/19 16:00 06/03/19 05:19 06/02/19 16:00 06/03/19 05:19 06/02/19 16:00 Oxygen Flow Rate (L/min) 2 Oxygen Delivery Method Room Air Weight: 54.006 kg Body Mass Index (BMI) 18.8 Sodium 139 mmol/L (136-145) 05/30/19 05:10 Potassium 4.4 mmol/L (3.5-5.1) 05/30/19 05:10 Chloride 102 mmol/L (98-107) 05/30/19 05:10 Carbon Dioxide 31.0 mmol/L (21.0-32.0) 05/30/19 05:10 6 (5-15) 05/30/19 05:10 BUN 24 mg/dL (7-18) H 05/30/19 05:10 0.58 mg/dL (0.70-1.30) L 05/30/19 05:10 Est GFR (MDRD) Af Amer 175 mL/min (>60) 05/30/19 05:10 Est GFR (MDRD) Non-Af 145 mL/min (>60) 05/30/19 05:10 41.6 RATIO (10-20) H 05/30/19 05:10 Glucose 80 mg/dL (74-106) 05/30/19 05:10 Assessment/Plan: 1) Pain: Acetaminophen 1000mg po q6h prn for mild pain. Please continue to monitor prn usage and for signs/symptoms of increased/decreased pain. *2) Vitamin D deficiency: Vitamin D3 1000 units po daily. I could not find a recent Vitamin D level in the pt's chart. Please consider a yearly Vitamin D level. Thanks 3) AFib: Digoxin 125mcg po daily, Eliquis 2.5mg po bid. Pt's digoxin level is 0.84. Please continue to monitor. Pt's pulse rate and rhythm is normal. Please continue to monitor. 4) Shuffling gait: Carbidopa/Levodopa 25/100 1 po tid ac. Please continue to monitor pt for falls. Please continue to monitor LFTs. Psychotropic Medications: none Unnecessary Medications: none *Bowel Regimen: Bisacodyl 10mg po daily prn for constipation, Miralax 17gm po daily, Senna/Docusate 1 tablet po bid. Pt has refused every Miralax dose. Please consider making Miralax prn. Thanks Date of Note:: 06/03/19 - Provider Comments Provider responsibility: Provider responsible to enter orders to implement recommendations <Eran Lei Chi - Last Filed: 06/03/19 13:18> Progress Note - Pharmacy Subjective: [] Objective: Allergies No Known Allergies Allergy (Verified 05/25/19 03:17) Current Medications Generic Name Dose Route Start Last Admin Trade Name Freq PRN Reason Stop Dose Admin Acetaminophen 1,000 mg 05/22/19 22:53 Tylenol PO Q6H PRN PRN MILD PAIN (-01/19) Apixaban 2.5 mg 05/22/19 18:00 06/03/19 05:18 Eliquis PO 2.5 mg BID DESIREE Administration Bisacodyl 10 mg 05/22/19 16:18 Dulcolax PO DAILY PRN PRN Constipation Calamine/Phenol 1 applic 05/22/19 22:00 06/03/19 12:19 Calmoseptine Ointment TOPICAL 1 applicatio TID DESIREE Administration Protocol Carbidopa/Levodopa 1 tablet 05/29/19 06:45 06/03/19 12:18 Sinemet PO 1 tablet TIDAC DESIREE Administration Cholecalciferol 1,000 unit 05/23/19 06:00 06/03/19 05:18 Vitamin D PO 1,000 unit DAILY DESIREE Administration Digoxin 125 mcg 05/23/19 06:00 06/03/19 05:19 Lanoxin PO 125 mcg DAILY DESIREE Administration Multi-Ingredient Cream 1 applic 05/23/19 22:00 06/02/19 19:39 Eucerin TOPICAL 1 applicatio 2200 DESIREE Administration Protocol Nutritional Formula (Lactose Free) 120 ml 05/23/19 17:00 06/03/19 12:18 Ensure Enlive PO 120 ml 4X/DAY DESIREE Administration Polyethylene Glycol 17 gm 05/23/19 06:00 06/03/19 05:19 Miralax PO Not Given DAILY DESIREE Senna/Docusate Sodium 1 tablet 05/23/19 06:00 06/03/19 05:22 Senokot-S, Tracey-Colace PO 1 tablet BID DESIREE Administration Problem List Debility (Acute) Weakness (Acute) Lung cancer (Chronic) Right rib fracture (Acute) COPD (chronic obstructive pulmonary disease) (Chronic) Vital Signs Temp Pulse Resp BP Pulse Ox 98.2 F 80 16 105/66 96 06/02/19 16:00 06/03/19 05:19 06/02/19 16:00 06/03/19 05:19 06/02/19 16:00 Oxygen Flow Rate (L/min) 2 Oxygen Delivery Method Room Air Weight: 53.694 kg Body Mass Index (BMI) 18.8 Sodium 139 mmol/L (136-145) 05/30/19 05:10 Potassium 4.4 mmol/L (3.5-5.1) 05/30/19 05:10 Chloride 102 mmol/L (98-107) 05/30/19 05:10 Carbon Dioxide 31.0 mmol/L (21.0-32.0) 05/30/19 05:10 6 (5-15) 05/30/19 05:10 BUN 24 mg/dL (7-18) H 05/30/19 05:10 0.58 mg/dL (0.70-1.30) L 05/30/19 05:10 Est GFR (MDRD) Af Amer 175 mL/min (>60) 05/30/19 05:10 Est GFR (MDRD) Non-Af 145 mL/min (>60) 05/30/19 05:10 41.6 RATIO (10-20) H 05/30/19 05:10 Glucose 80 mg/dL (74-106) 05/30/19 05:10 Assessment/Plan: Psychotropic Medications: Unnecessary Medications: Bowel Regimen: - Provider Comments Provider responsibility: Provider responsible to enter orders to implement recommendations Provider Comments to Recommendations by Pharmacy: Agree
--- NOTE | 2019-06-03 11:05 | CASEMGMT ---
Insurance continued stay approved with next update on 06/06. Please include discharge plans. Auth# [id number] MARIBELL Damon
[2019-06-03 15:02] VITALS: BP 95/55; PULSE 89; RESP 20; TEMP 36.8; O2SAT 94
[2019-06-04 05:17] VITALS: BP 107/68; PULSE 81
[2019-06-04] MEDS: Polyethylene Glycol 3350 17 GM PACKET PO (05:17)
[2019-06-04] MEDS: Carbidopa/Levodopa 25/100 Tablet PO ×3 (05:17→17:00)
[2019-06-04] MEDS: Senna/Docusate Sodium 1 Tablet PO ×2 (05:17→17:01)
[2019-06-04] MEDS: Digoxin 125 MCG Tablet PO (05:17)
[2019-06-04] MEDS: APIXABAN 2.5 MG TABLET PO ×2 (05:18→17:01)
[2019-06-04] MEDS: Menthol/Lanolin/Calamine/Znox 113 GM Tube 1 APPLIC TOPICAL ×3 (05:21→20:02)
--- NOTE | 2019-06-04 09:55 | CASEMGMT ---
Social Work IDT met with patient, son and DIL for care plan meeting. Discussed progress in therapy - CGA to Min assist for ADLS and transfers. Pt still exhibiting cognitive deficits. Recommending / care for safety concerns. Nursing continuing to monitor and tend to wound. Pt wishes to return home. Son is working on getting access to pts bank accounts with DPOA to apply for Medicaid. Son to f/u on that progress today. Provided classroom instructional aide resources to son again to f/u on hiring aides for assistance in the home. Son and Dtr can assist around work schedule for medication and meal assistance. Will f/u with son prior to insurance update 06/06 to determine progress for DC plans. Provided and explained [employer] Care Plan to son. Son stated pt received [facility] in the past. SW to f/u with [place] and [place] to possible reinstate those aides and possible increase hours. Will continue to follow. Ely Lopez, CRISTINA CAMPOSW
--- NOTE | 2019-06-04 12:27 | MDS.RN ---
Information for the mds was obtained from review of the clinical record, interview of resident, staff, and direct observation of resident's care
[2019-06-04 15:04] VITALS: BP 90/54; PULSE 101; RESP 20; TEMP 36.7; O2SAT 99
[2019-06-05] MEDS: APIXABAN 2.5 MG TABLET PO ×2 (05:43→16:54)
[2019-06-05] MEDS: Senna/Docusate Sodium 1 Tablet PO ×2 (05:43→16:54)
[2019-06-05] MEDS: Carbidopa/Levodopa 25/100 Tablet PO ×3 (05:43→16:53)
[2019-06-05] MEDS: Menthol/Lanolin/Calamine/Znox 113 GM Tube 1 APPLIC TOPICAL ×3 (05:45→20:25)
[2019-06-05 05:46] VITALS: BP 89/65; PULSE 94
--- NOTE | 2019-06-05 06:28 | NURSING ---
Patients blood pressure 89/[address] Lei notified orders given to hold digoxin.
[2019-06-05 06:29] VITALS: BP 89/65
[2019-06-05 16:00] VITALS: BP 104/68; PULSE 83; RESP 20; TEMP 37.1; O2SAT 98
[2019-06-06 05:37] LABS: Absolute Lymphocyte Count 1.12 X10^3/uL (0.83-4.51); Absolute Neutrophil Count 5.9 X10^3/uL (2.0-7.7); Basophil# 0.11 X10^3/uL; Basophil% 1.4 % (0-1); Eosinophil# 0.17 X10^3/uL; Eosinophils% 2.1 % (0-5); Hematocrit 43.9 % (40-54); Lymphocyte # 1.12 X10^3/ul (4.0); Lymphocyte % 13.8 % (19-41); Mean Corp Hgb Conc 31.9 g/dL (32-36); Mean Corpuscular Hgb 29.4 pg (27.0-32.0); Mean Platelet Vol. 10.1 fl (6.2-12.0); Monocyte# 0.75 X10^3/uL; Monocyte% 9.2 % (0-10); Neutrophil # 5.93 X10^3/uL (2.7-7.7); Neutrophil % 73.1 % (47-70); Platelet Count 227 K/mm3 (150-450); RBC Distribution Width CV 14.9 % (11.6-14.6); Red Blood Count 4.77 M/mm3 (4.6-6.2); White Blood Count 8.1 K/mm3 (4.4-11.0)
[2019-06-06] MEDS: Menthol/Lanolin/Calamine/Znox 113 GM Tube 1 APPLIC TOPICAL ×3 (05:38→20:04)
[2019-06-06 05:40] VITALS: BP 108/76; PULSE 94
[2019-06-06] MEDS: Senna/Docusate Sodium 1 Tablet PO ×2 (05:40→16:44)
[2019-06-06] MEDS: APIXABAN 2.5 MG TABLET PO ×2 (05:40→16:44)
[2019-06-06] MEDS: Digoxin 125 MCG Tablet PO (05:40)
[2019-06-06] MEDS: Carbidopa/Levodopa 25/100 Tablet PO ×3 (05:40→16:43)
[2019-06-06 05:59] LABS: Anion Gap 3 (5-15); BUN 22 mg/dL (7-18); BUN/Creat Ratio 28.6 RATIO (10-20); Calcium,Total 8.5 mg/dL (8.5-10.1); Chloride 101 mmol/L (98-107); Creatinine, Serum 0.77 mg/dL (0.70-1.30); EST Glomerular Filtration Rate 104 mL/min (>60); Est Glom Filt Rate - Afr Amer 125 mL/min (>60); Estimated Creatinine Clearance 46.72 ml/min; Glucose 87 mg/dL (74-106); Potassium 4.5 mmol/L (3.5-5.1); Sodium Level 137 mmol/L (136-145)
--- NOTE | 2019-06-06 07:22 | CASEMGMT ---
Insurance: Continued stay clinicals faxed this day. Auth# [id number]
--- NOTE | 2019-06-06 12:55 | CASEMGMT ---
Addendum entered by Ely Lopez 06/06/19 16:42: Left message with son notifying him insurance issued LCD. Pt signed NOMNC. Awaiting to hear back from son. Original Note: Social Work Left another message with son for update on DC plans. [facility] not heard [facility] from [facility] for [facility]. Spoke with Priscilla at [facility] - sending info to medical review for possible NOMNC. Will continue to follow. Ely Lopez, CRISTINA BEEF TRIMMER
[2019-06-06 15:17] VITALS: BP 98/62; PULSE 98; RESP 19; TEMP 36.6
--- NOTE | 2019-06-06 15:32 | DCINST_ITS ---
- Discharge Diagnoses Current Active Problems: Current Active and Chronic Problems Debility (Acute) Weakness (Acute) Lung cancer (Chronic) Right rib fracture (Acute) COPD (chronic obstructive pulmonary disease) (Chronic) You will use the following diet at home:: No restrictions, Regular Your food should be the consistency of: Regular Your liquids should be the consistency of: Regular/Thin Discharge Activity: Return to Normal Activity, May Shower, Use Walker Weight Bearing Status: Weight bearing as tolerated Call your doctor if you observe: Fever of 101 or Higher, Inability to urinate, Inability to have a bowel movement, Shortness of breath, Chest pain, Uncontrolled pain Allergies/Adverse Reactions: Allergies No Known Allergies Allergy (Verified 05/25/19 03:17) Medications to take at Discharge Cholecalciferol (VIT D3) [Vitamin D3] 1,000 unit PO DAILY 05/19/19 Digoxin 125 mcg PO DAILY 05/19/19 Acetaminophen [Tylenol] 1,000 mg PO Q6H PRN PRN tablet 06/06/19 Apixaban [Eliquis] 2.5 mg PO BID #60 tab 06/06/19 Carbidopa/Levodopa 25/100 [Sinemet 25/100] 1 tab PO TIDAC #90 tab 06/06/19 Menthol/Lanolin/Calamine/Znox [Calmoseptine Ointment] 1 applic TOPICAL TID tube 06/06/19 Mineral Oil/Petrolatum,White [Eucerin] 1 applic TOPICAL 2200 jar 06/06/19 The following prescriptions were given: Apixaban [Eliquis] 2.5 mg PO BID #60 tab Transmission Status: [facility] to [id number] Carbidopa/Levodopa 25/100 [Sinemet 25/100] 1 tab PO TIDAC #90 tab Transmission Status: [facility]ending [id number] Primary Care Physician: [facility] [Primary Care Provider] - Please follow up with your Primary Care Physician in: 1 week. Test Results: Test results from this visit will be discussed in further detail at your follow- up appointment, if applicable. Please Follow Up With: Dr. Nguyen When: 1 week Proposed Discharge Date: 06/13/19
--- NOTE | 2019-06-06 15:33 | PCM.DC.SUM ---
Discharge Date and Diagnosis - Problem List Patient Problems: Active and Suspected Problems Debility (Acute) Weakness (Acute) Right rib fracture (Acute) Date of Admission: 05/22/19 Date of Discharge: 06/13/19 - Primary Discharge Diagnosis Active and Suspected Problems Debility (Acute) Weakness (Acute) Right rib fracture (Acute) - Secondary Discharge Diagnosis Chronic Problems Lung cancer (Chronic) COPD (chronic obstructive pulmonary disease) (Chronic) Atrial fibrillation (Chronic) History of chronic obstructive pulmonary disease (Chronic) On continuous oral anticoagulation (Chronic) Hospital Course and Treatment Imaging Results: 05/22/19 16:16 Diet: Regular Diet Food consistency:: Regular Liquid Consistency:: Regular/Thin Type of Dietary Supplement:: Ensure Complete Labs (Last 48 Hours) 06/04/19 06/06/19 06/06/19 05:20 05:05 05:05 WBC 8.1 RBC 4.77 Hgb 14.0 Hct 43.9 MCV 92.0 MCH 29.4 MCHC 31.9 L RDW Std Deviation 50.0 H RDW Coeff of Terrell 14.9 H Plt Count 227 MPV 10.1 Immature Gran % (Auto) 0.400 Neut % (Auto) 73.1 H Lymph % (Auto) 13.8 L [place] % (Auto) 9.2 Eos % (Auto) 2.1 Baso % (Auto) 1.4 H Absolute Neuts (auto) 5.9 Absolute Lymphs (auto) 1.12 Total Counted Not Reportable Sodium 137 Potassium 4.5 Chloride 101 Carbon Dioxide 33.0 H Anion Gap 3 L BUN 22 H Creatinine 0.77 Estim Creat Clear Calc 46.72 Est GFR (MDRD) Af Amer 125 Est GFR (MDRD) Non-Af 104 BUN/Creatinine Ratio 28.6 H Glucose 87 Calcium 8.5 Vit D 1,25-Dihydroxy 40.0 Consultations 05/27/19 05:06 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 On TCU, resident was diagnosed with Parkinson's Disease, started on Sinemet, doing well, tolerating well. Discharge home alone, with private duty aides. Patient Problems: Active and Suspected Problems Debility (Acute) Weakness (Acute) Right rib fracture (Acute) - Physical Exam Vital Signs Temp Pulse Resp BP Pulse Ox 97.9 F 98 19 H 98/62 98 06/06/19 15:17 06/06/19 15:17 06/06/19 15:17 06/06/19 15:17 06/05/19 16:00 Oxygen Flow Rate (L/min) 2 Oxygen Delivery Method Room Air Weight: 54.97 kg Body Mass Index (BMI) 18.8 Intake and Output for Last 24 Hours 06/04/19 06/05/19 06/06/19 23:59 23:59 23:59 Intake Total 600 / 600 720 / 720 480 / 480 Balance 600 / 600 720 / 720 480 / 480 Laboratory Tests Past 24 Hrs 06/04/19 06/06/19 06/06/19 05:20 05:05 05:05 WBC 8.1 RBC 4.77 Hgb 14.0 Hct 43.9 MCV 92.0 MCH 29.4 MCHC 31.9 L RDW Std Deviation 50.0 H RDW Coeff of [place]rell 14.9 H Plt Count 227 MPV 10.1 Immature Gran % (Auto) 0.400 Neut % (Auto) 73.1 H Lymph % (Auto) 13.8 L [place] % (Auto) 9.2 Eos % (Auto) 2.1 Baso % (Auto) 1.4 H Absolute Neuts (auto) 5.9 Absolute Lymphs (auto) 1.12 Total Counted Not Reportable Sodium 137 Potassium 4.5 Chloride 101 Carbon Dioxide 33.0 H Anion Gap 3 L BUN 22 H Creatinine 0.77 Estim Creat Clear Calc 46.72 Est GFR (MDRD) Af Amer 125 Est GFR (MDRD) Non-Af 104 BUN/Creatinine Ratio 28.6 H Glucose 87 Calcium 8.5 Vit D 1,25-Dihydroxy 40.0 Discharge Diet: No Restrictions Discharge Activity: Return to Normal Activity, May Shower, Use Walker Weight Bearing Status: Weight bearing as tolerated Call your doctor if you observe: Fever of 101 or Higher, Inability to urinate, Inability to have a bowel movement, Shortness of breath, Chest pain, Uncontrolled pain Home Medications: Medications to take at Discharge RX: Cholecalciferol (VIT D3) [Vitamin D3] 1,000 unit PO DAILY 05/19/19 RX: Digoxin 125 mcg PO DAILY 05/19/19 RX: Acetaminophen [Tylenol] 1,000 mg PO Q6H PRN PRN tablet 06/06/19 RX: Apixaban [Eliquis] 2.5 mg PO BID #60 tab 06/06/19 RX: Carbidopa/Levodopa 25/100 [Sinemet 25/100] 1 tab PO TIDAC #90 tab 06/06/19 RX: Menthol/Lanolin/Calamine/Znox [Calmoseptine Ointment] 1 applic TOPICAL TID tube 06/06/19 RX: Mineral Oil/Petrolatum,White [Eucerin] 1 applic TOPICAL 2200 jar 06/06/19 Following Prescrptions Were Given to Patient: RX: Apixaban [Eliquis] 2.5 mg PO BID #60 tab Transmission Status: [id number] RX: Carbidopa/Levodopa 25/100 [Sinemet 25/100] 1 tab PO TIDAC #90 tab Transmission Status: [id number] [[facility]] - Please follow up with your Primary Care Physician in: 1 week. Please Follow Up With: Dr. Nguyen When: 1 week Disposition: Home Minutes spent on discharge:: 30 Patient Condition:: Stable Medical Necessity - Tobacco Use Smoking Status: Former smoker Tobacco Use: Non-smoker Meaningful Use Info Meaningful Use Diagnoses (Choose all that apply): None applicable
--- NOTE | 2019-06-06 16:39 | CASEMGMT ---
Insurance: Continued stay denied. LCD is 06/10/19 with D/C planned for 06/11/19. PATRICK Graves. Auth# [id number].
[2019-06-07] MEDS: Menthol/Lanolin/Calamine/Znox 113 GM Tube 1 APPLIC TOPICAL ×3 (05:36→19:30)
[2019-06-07 05:37] VITALS: BP 116/73; PULSE 96
[2019-06-07] MEDS: APIXABAN 2.5 MG TABLET PO ×2 (05:37→17:07)
[2019-06-07] MEDS: Carbidopa/Levodopa 25/100 Tablet PO ×3 (05:37→17:07)
[2019-06-07] MEDS: Digoxin 125 MCG Tablet PO (05:37)
[2019-06-07] MEDS: Polyethylene Glycol 3350 17 GM PACKET PO (05:37)
[2019-06-07] MEDS: Senna/Docusate Sodium 1 Tablet PO ×2 (05:37→17:07)
[2019-06-07 15:39] VITALS: BP 96/64; PULSE 99; RESP 24; TEMP 36.9
[2019-06-08] MEDS: APIXABAN 2.5 MG TABLET PO ×2 (05:12→16:52)
[2019-06-08] MEDS: Senna/Docusate Sodium 1 Tablet PO ×2 (05:12→16:52)
[2019-06-08 05:13] VITALS: BP 120/65; PULSE 95
[2019-06-08] MEDS: Menthol/Lanolin/Calamine/Znox 113 GM Tube 1 APPLIC TOPICAL ×3 (05:13→20:17)
[2019-06-08] MEDS: Carbidopa/Levodopa 25/100 Tablet PO ×3 (05:13→16:52)
[2019-06-08] MEDS: Digoxin 125 MCG Tablet PO (05:13)
[2019-06-08] MEDS: Polyethylene Glycol 3350 17 GM PACKET PO (05:13)
[2019-06-08 05:21] VITALS: O2SAT 98
[2019-06-08 16:00] VITALS: BP 83/55; PULSE 95; RESP 20; TEMP 37.1
[2019-06-08] MEDS: Nystatin Powder 15gm Bottle 1 APPLIC TOPICAL (20:20)
[2019-06-09] MEDS: Menthol/Lanolin/Calamine/Znox 113 GM Tube 1 APPLIC TOPICAL ×3 (05:07→19:41)
[2019-06-09 05:08] VITALS: BP 107/73; PULSE 92
[2019-06-09] MEDS: Digoxin 125 MCG Tablet PO (05:08)
[2019-06-09] MEDS: APIXABAN 2.5 MG TABLET PO ×2 (05:08→17:26)
[2019-06-09] MEDS: Polyethylene Glycol 3350 17 GM PACKET PO (05:09)
[2019-06-09] MEDS: Nystatin Powder 15gm Bottle 1 APPLIC TOPICAL ×2 (05:09→19:41)
[2019-06-09] MEDS: Carbidopa/Levodopa 25/100 Tablet PO ×3 (05:11→17:25)
[2019-06-09] MEDS: Senna/Docusate Sodium 1 Tablet PO (05:11)
--- NOTE | 2019-06-09 12:16 | CASEMGMT ---
Addendum entered by Ely Lopez 06/09/19 12:24: Provided resources for Medical Alert button. Original Note: Social Work Called the son again - answered. Spoke with him about discharge plans. Son stated he is still having trouble getting all the financial information from the bank to start Medicaid. Stated he has not called Medicaid yet. Encouraged him to call and get more information today, but pt would need to private pay to stay longer or transfer to another SNF. Son stated they will take him home, family to support. Will refer to [facility] for PT/OT/ST. Plan: DC home 06/11 with [facility] PT/OT/ST. CRISTINA Alcaraz
[2019-06-09 16:00] VITALS: BP 100/62; PULSE 98; RESP 18; TEMP 37; O2SAT 96
[2019-06-10 06:05] VITALS: BP 102/64; PULSE 75
[2019-06-10] MEDS: Carbidopa/Levodopa 25/100 Tablet PO ×3 (06:05→16:44)
[2019-06-10] MEDS: Polyethylene Glycol 3350 17 GM PACKET PO (06:05)
[2019-06-10] MEDS: APIXABAN 2.5 MG TABLET PO ×2 (06:05→16:43)
[2019-06-10] MEDS: Senna/Docusate Sodium 1 Tablet PO ×2 (06:05→16:44)
[2019-06-10] MEDS: Digoxin 125 MCG Tablet PO (06:05)
[2019-06-10] MEDS: Menthol/Lanolin/Calamine/Znox 113 GM Tube 1 APPLIC TOPICAL ×3 (06:06→19:37)
[2019-06-10] MEDS: Nystatin Powder 15gm Bottle 1 APPLIC TOPICAL ×2 (06:06→19:37)
[2019-06-10 15:10] VITALS: BP 108/67; PULSE 95; RESP 22; TEMP 36.7; O2SAT 96
[2019-06-11] MEDS: APIXABAN 2.5 MG TABLET PO (04:57)
[2019-06-11] MEDS: Menthol/Lanolin/Calamine/Znox 113 GM Tube 1 APPLIC TOPICAL (04:57)
[2019-06-11] MEDS: Nystatin Powder 15gm Bottle 1 APPLIC TOPICAL (04:57)
[2019-06-11] MEDS: Carbidopa/Levodopa 25/100 Tablet PO ×2 (04:57→11:05)
[2019-06-11 04:58] VITALS: BP 106/74; PULSE 93
[2019-06-11] MEDS: Digoxin 125 MCG Tablet PO (04:58)
--- NOTE | 2019-06-11 14:41 | NURSING ---
Patient left for appointment with son at [phone]
[2019-06-11 15:20] VITALS: BP 101/69; PULSE 97; RESP 20; TEMP 36.4; O2SAT 96
[2019-06-11 15:29] VITALS: BP 101/69; PULSE 97; RESP 20; TEMP 36.4; O2SAT 96
== END 2019-06-11 15:25 | disposition home health service (06) | DRG 948 ==
PROVIDERS: Admitting Provider Family Medicine Geriatric Medicine; Visit Provider Family Medicine Geriatric Medicine
DX: R53.81 Other malaise (principal); N39.0 Urinary tract infection, site not specified; J44.9 Chronic obstructive pulmonary disease, unspecified; S22.31XD Fracture of one rib, right side, subsequent encounter for fracture with routine healing; W19.XXXD Unspecified fall, subsequent encounter; Z85.118 Personal history of other malignant neoplasm of bronchus and lung; I48.2 Chronic atrial fibrillation; Z87.891 Personal history of nicotine dependence; B96.89 Other specified bacterial agents as the cause of diseases classified elsewhere; G20 Parkinson's disease
CPT/HCPCS: 36415; 80048; 80053; 82652; 82962; 84484; 85025; 92507; 92523; 93005; 97110; 97116; 97163; 97166; 97530; 97535; 97802; J7030

== ENCOUNTER 2019-05-25 03:15 | Emergency (ER) | payer MEDICARE, SELFPAY ==
[2019-05-25 03:17] VITALS: BP 98/71; PULSE 97; RESP 17; TEMP 36.6; O2SAT 96; BMI 18.1
--- NOTE | 2019-05-25 04:30 | RAD_ITS ---
HISTORY: SOB/HX OF CANCER EXAMINATION/TECHNIQUE: XR Chest 1 View: Portable COMPARISON: 05/21/2019 and 05/19/2019 FINDINGS: EKG leads in place. No significant change. Bilateral calcified pleural plaques. Left hemithorax volume loss with mediastinal shift to the left. Stable pattern of dense pleural opacity within the lower left hemithorax with secondary obscuration of the left hemidiaphragm and lower left heart border. The heart is unchanged in size. The right lung appears stable. No acute infiltrate seen. No pneumothorax. RAD/Chest 1 View (Portable) IMPRESSION: Chronic pleural-parenchymal disease. Stable findings. Details above. at 0546 Reported and signed by: Jake Mcgee MD Electronically Signed: Jake Mcgee, at 5:45 EDT Tel , Service support ,
--- NOTE | 2019-05-25 04:31 | EKG12_ITS ---
Test Reason : IRREGULAR HR Blood Pressure : / mmHG Vent. Rate : 097 BPM Atrial Rate : 097 BPM P-R Int : 204 ms QRS Dur : 096 ms QT Int : 354 ms P-R-T Axes : 000 042 152 degrees QTc Int : 449 ms Atrial Flutter Low voltage QRS Abnormal ECG T wave inversion more evident in Inferior leads Confirmed by ALEN FOWLER, AMAYA ([id number]), sound editor ASHIA OVALLES ([id number]) on 05/30/2019 2:20:17 PM Referred By: MERVAT Confirmed By:CAESAR LOWRY MD
--- NOTE | 2019-05-25 04:39 | ED.VISSUMM ---
- ER Visit Summary Date of Service: 05/25/19 Chief Complaint: Weakness History of Present Illness: The patient is a 78 M who presents with increasing weakness at TCU. Staff at TCU also states the patient has had elevated troponins. Patient states he just feels weak all over. Patient denies any fevers or chills. Patient denies any chest pain or shortness of breath. Patient denies any nausea or vomiting. Patient denies any urinary complaints. Physical Examination: Vital signs are stable except for a slightly low blood pressure of 98/71. Patient is afebrile. Patient is in no acute distress. Oral mucosa is pink and moist. Neck is supple. Trachea is midline. There is no JVD noted. Heart was regular rate and rhythm. Lungs are clear and equal bilaterally. Abdomen is soft. Bowel sounds are normal. There is no tenderness. Cranial nerves II through XII are grossly intact. There are no focal motor or sensory deficits noted. Test Results: EKG showed atrial flutter with a rate of 75. There is some T wave inversion in leads V3 through V6, II, III, and aVF. These are unchanged compared to previous EKG dated 05/24/2019. CBC and basic metabolic profile within normal limits. Urinalysis does not show any evidence of urinary tract infection. Troponin was elevated at 0.114 however, this is improving from previous result which was 0.128. Chest x-ray shows chronic changes but no acute cardiopulmonary process. Emergency Department Course and Treatment: Patient was comfortable here in the emergency department. Patient was given aspirin and IV fluids. Case was discussed with the hospitalist. Since the patient's troponins are trending down we do not feel patient needs to be admitted to the hospital. Patient will be transferred back to the TCU. Disposition: Discharge to TCU Impression: 1. Atrial flutter 2. Elevated troponin This note was generated with [employer] dictation software. It may contain incorrect words, spelling, and punctuation that were not noted in review of the chart prior to signing ED Disposition - Plan for ED Patient: Disposition: Shelter Facility Diagnosis: Elevated troponin, Atrial flutter Instructions: WEAKNESS, Unk Cause, Atrial Flutter [facility] [[facility] Care Provider] -
[2019-05-25] MEDS: 0.9% Normal Saline 1,000 ML 1000 ML IV (04:42)
[2019-05-25 05:19] LABS: Absolute Lymphocyte Count 1.06 X10^3/ul (0.83-4.51); Absolute Neutrophil Count 8.7 X10^3/uL (2.0-7.7); Basophil# 0.07 X10^3/uL; Basophil% 0.6 % (0-1); Eosinophil# 0.09 X10^3/uL; Eosinophils% 0.8 % (0-5); Hemoglobin 13.6 g/dl (13.0-16.5); Lymphocyte # 1.06 X10^3/ul (4.0); Lymphocyte % 9.7 % (19-41); Mean Corp Hgb Conc 32.4 g/gl (32-36); Mean Corpuscular Hgb 29.5 pg (27.0-32.0); Mean Corpuscular Volume 91.1 fL (80-94); Mean Platelet Vol. 10.2 fl (6.2-12.0); Monocyte# 0.94 X10^3/uL; Monocyte% 8.6 % (0-10); Neutrophil # 8.73 X10^3/uL (2.7-7.7); Neutrophil % 80.1 % (47-70); Platelet Count 359 K/mm3 (150-450); RBC Distribution Width CV 14.2 % (11.6-14.6); RBC Distribution Width SD 47.4 fl (35.1-43.9); Red Blood Count 4.61 M/mm3 (4.6-6.2); White Blood Count 10.9 K/mm3 (4.4-11.0)
[2019-05-25 05:21] LABS: Anion Gap 6 (5-15); BUN 24 mg/dL (7-18); BUN/Creat Ratio 33.5 RATIO (10-20); Calcium,Total 8.4 mg/dL (8.5-10.1); Chloride 102 mmol/L (98-107); Creatinine, Serum 0.72 mg/dL (0.70-1.30); EST Glomerular Filtration Rate 113 mL/min (>60); Est Glom Filt Rate - Afr Amer 136 mL/min (>60); Estimated Creatinine Clearance 47.96 ml/min; Glucose 97 mg/dL (74-106); Potassium 4.6 mmol/L (3.5-5.1); Sodium Level 140 mmol/L (136-145)
[2019-05-25 05:22] LABS: POSITIVE COUNT NO; POSITIVE DIFFERENTIAL NO; POSITIVE MORPHOLOGY NO
[2019-05-25 05:35] LABS: Digoxin Level 0.84 ng/mL (0.80-2.00)
[2019-05-25 05:58] VITALS: BP 91/65; PULSE 94; RESP 22; O2SAT 94
[2019-05-25 06:00] LABS: Squamous Epithelial Cells - UA 0 SEEN /hpf (0-5)
[2019-05-25 06:06] LABS: Color, Urine Yellow (Yellow); Glucose, Dipstick Normal (Normal); Ketone-Dipstick Negative (Negative); Leukocyte Esterase-Dipstick 25 /ul (Negative); Nitrite-Dipstick Negative (Negative); Occult Blood-Urine 50 /ul (Negative); Protein-Dipstick Negative (Negative); Specific Gravity, Urine 1.015 (1.002-1.030); Urine Bilirubin Dipstick Negative (Negative); Urine Clarity Sl. Cloudy (Clear); Urine Urobilinogen Normal (Normal)
[2019-05-25 06:18] LABS: Amorphous Sediment 2+; Bacteria RARE /hpf (None Seen); Mucous, Urine 1+ /hpf (<or=2+); White Blood Cells 0-5 SEEN /hpf (0-5)
[2019-05-25 06:19] LABS: Coarse Granular Cast 0-5 SEEN /lpf (0-5 /lpf); Hyaline Cast 0-5 SEEN /lpf (0-5); Red Blood Cells-Urine 5-10 SEEN /hpf (0-5)
[2019-05-25] MEDS: Aspirin 81 MG TAB.CHEW 324 MG PO (07:05)
[2019-05-25 07:34] VITALS: BP 132/99; PULSE 118; PULSE 92; RESP 14; RESP 30; O2SAT 97
== END 2019-05-25 09:02 | disposition skilled nursing facility (03) ==
PROVIDERS: Emergency Provider Emergency Medicine
DX: I48.92 Unspecified atrial flutter (principal); R79.89 Other specified abnormal findings of blood chemistry; J44.9 Chronic obstructive pulmonary disease, unspecified; Z85.118 Personal history of other malignant neoplasm of bronchus and lung
CPT/HCPCS: 36415; 71045; 80048; 80162; 81001; 84484; 85025; 93005; 96360; 96361; 99285; J7030; A4216

== ENCOUNTER 2019-06-30 17:33 | Inpatient (IN) | payer MEDICARE, SELFPAY ==
[2019-06-11 14:12] VITALS: BMI 20.5
[2019-06-30] VITALS (12 sets, daily range): BP systolic 78–106; BP diastolic 50–66; PULSE 93–143; RESP 16–28; TEMP 36.4–36.7; O2SAT 95–98; BMI 20.7; BMI 20.1; BMI 20.2
--- NOTE | 2019-06-30 17:53 | EKG12_ITS ---
Test Reason : Blood Pressure : / mmHG Vent. Rate : 097 BPM Atrial Rate : 097 BPM P-R Int : 146 ms QRS Dur : 086 ms QT Int : 320 ms P-R-T Axes : 060 028 119 degrees QTc Int : 406 ms Normal sinus rhythm Possible Left atrial enlargement Low voltage QRS (Limb Leads) Nonspecific ST & T wave abnormality, consider anterolateral ischemia Abnormal ECG Confirmed by ELMER FOWLER, BRADY ([id number]), newspaper editor RORY ROLDAN ([id number]) on 07/03/2019 1:00:57 PM Referred By: JAYLEN Confirmed By:BRADY PAYNE MD
--- NOTE | 2019-06-30 17:59 | ED.VIS.GEN ---
History of Present Illness Chief Complaint: General Illness Informant: Patient, Family Onset: Days Narrative: Patient is brought in by his children due to concerns for possible UTI. Patient has been home from hospital and rehab for the last 3 weeks. They have noted a functional decline over that period. They noted his legs to be mottled yesterday. When he had this previously he was diagnosed with sepsis and a UTI. They have not noted fever. They state that he was breathing rapidly and shallow. He has not had cough. They have noted decreased p.o. intake. Son states when he empties the bedside commode the urine has a very strong odor to it. Patient is resting comfortably but easily awakens. He has no complaints. Past Medical History - Allergies and Home Meds Allergies/Adverse Reactions: Allergies No Known Allergies Allergy (Verified 06/30/19 17:34) [facility] - Prior records reviewed: Yes Past Medical History: - - Reviewed Surgical History: appendectomy Lives: Alone Smoking Status: Former smoker - Family History Maternal Family History: Reports: No pertinent history Paternal Family History: Reports: No pertinent history Review of Systems General: Denies: Chills, Fever Cardiovascular: Denies: Chest pain Respiratory: Denies: Dyspnea, Cough Gastrointestinal: Denies: Abdominal pain, Nausea, Vomiting Musculoskeletal: Denies: Back pain, Extremity Pain Neurological: Denies: Headache Physical Exam Vital Signs/Narrative: Vital Signs Temp Pulse Resp BP Pulse Ox 06/30/19 17:34 97.8 F 114 H 24 H 91/61 95 Inital Vital Signs reviewed: Yes General: Well nourished, Well developed ENT: Moist mucous membranes Neck: Supple Cardiovascular: Regular rate, Regular rhythm, Murmur Respiratory: No distress, CTA bilaterally Abdomen: Soft, Nontender Extremities: Nontender - No skin mottling noted at this time. Skin: Normal color Neurological: - - Rest with eyes closed but will open eyes to voice. Patient has no complaints. Diagnostic/Tx/Re-eval Impressions Chest X-Ray 06/30/19 18:01 IMPRESSION: Overall suboptimal inspiratory effort compared to prior. Bilateral pleural plaque with calcifications, stable since prior. Stable volume loss on the left side with significant pleural thickening. Mild to moderate cardiomegaly. Electronically Signed: Herman Rajan MD at 18:17 EDT Tel [phone], Service support , 06/30/19 18:01 Chest 1 View (Portable) [RAD] Stat Laboratory Results 06/30/19 06/30/19 06/30/19 18:10 18:10 18:10 WBC 18.4 H RBC 4.93 Hgb 14.6 Hct 45.4 MCV 92.1 MCH 29.6 MCHC 32.2 RDW Std Deviation 49.1 H RDW Coeff of Terrell 14.4 Plt Count 305 MPV 9.8 Immature Gran % (Auto) 0.700 Neut % (Auto) 87.7 H Lymph % (Auto) 3.1 L [place] % (Auto) 7.8 Eos % (Auto) 0.5 Baso % (Auto) 0.2 Absolute Neuts (auto) 16.1 H Absolute Lymphs (auto) 0.57 L Nucleated RBC % 0 Differential Comment SCANNED PT 26.3 H INR 2.4 APTT 52.6 H Sodium 138 Potassium 4.5 Chloride 102 Carbon Dioxide 30.0 Anion Gap 6 BUN 14 Creatinine 0.79 Estim Creat Clear Calc 48.82 Est GFR (MDRD) Af Amer 122 Est GFR (MDRD) Non-Af 101 BUN/Creatinine Ratio 17.7 Glucose 90 Lactic Acid Calcium 8.9 Troponin I < 0.015 Urine Color Urine Clarity Urine pH Ur Specific [place] Urine Protein Urine Glucose (UA) Urine Ketones Urine Occult Blood Urine Nitrite Urine Bilirubin Urine Urobilinogen Ur Leukocyte Esterase Urine RBC Urine WBC Ur Squamous Epith Cells Urine Bacteria Urine Mucus Digoxin 06/30/19 06/30/19 06/30/19 18:10 18:10 18:30 WBC RBC Hgb Hct MCV MCH MCHC RDW Std Deviation RDW Coeff of [place]rell Plt Count MPV Immature Gran % (Auto) Neut % (Auto) Lymph % (Auto) [place] % (Auto) Eos % (Auto) Baso % (Auto) Absolute Neuts (auto) Absolute Lymphs (auto) Nucleated RBC % Differential Comment PT INR APTT Sodium Potassium Chloride Carbon Dioxide Anion Gap BUN Creatinine Estim Creat Clear Calc Est GFR (MDRD) Af Amer Est GFR (MDRD) Non-Af BUN/Creatinine Ratio Glucose Lactic Acid 2.4 H Calcium Troponin I Urine Color Yellow Urine Clarity Clear Urine pH 6.0 Ur Specific [place] 1.010 Urine Protein 15 H Urine Glucose (UA) Normal Urine Ketones 150 H Urine Occult Blood 25 H Urine Nitrite Negative Urine Bilirubin Negative Urine Urobilinogen 1 H Ur Leukocyte Esterase 25 H Urine RBC 0-5 SEEN Urine WBC 0-5 SEEN Ur Squamous Epith Cells 0 SEEN Urine Bacteria 0 SEEN Urine Mucus 1+ Digoxin 1.17 - Medical Decision Making Patient is given IV fluid bolus. Map has remained above 65. At this time he meets criteria for severe sepsis however I have no definitive source. Blood and urine cultures are pending. I have spoken with family regarding his wishes. He is DNR Comfort Care arrest. If intubation is considered it would only be if the causes of the reversible within a day or 2. I discussed the possibility of pressors with him and need for central line if that were to occur. They are not sure they would want him to have that. As stated at this time his map is above 65 I do not think a depressed that issue at this time, however family is thinking about what they would want done. Patient does see doctors at the [facility] but has Medicare advantage insurance. I spoke with family and they wish to stay here rather than transfer to [place]. Hospitalist has been contacted. ED Disposition - Plan for ED Patient: Disposition: Acute Care Hospital [facility] Diagnosis: Severe sepsis [facility]errals: [facility] [Primary Care Provider] -
--- NOTE | 2019-06-30 18:01 | RAD_ITS ---
STUDY: X-RAY CHEST REASON FOR EXAM: Male, 78 years old. Shortness of breath with cough TECHNIQUE: Single AP portable view of the chest. COMPARISON: 05/25/19 FINDINGS: Overall suboptimal inspiratory effort compared to prior. Bilateral pleural plaque with calcifications, stable since prior. Stable volume loss on the left side with significant pleural thickening. Mild to moderate cardiomegaly. There are diffuse degenerative changes of the visualized thoracic spine. There is degenerative osteoarthritis of the bilateral shoulders. There is no demonstrated abnormality of the visualized soft tissue structures of the upper abdomen. RAD/Chest 1 View (Portable) IMPRESSION: Overall suboptimal inspiratory effort compared to prior. Bilateral pleural plaque with calcifications, stable since prior. Stable volume loss on the left side with significant pleural thickening. Mild to moderate cardiomegaly. Electronically Signed: Herman Rajan MD at 18:17 EDT Tel [phone], Service support ,
[2019-06-30 18:26] LABS: Absolute Lymphocyte Count 0.57 X10^3/uL (0.83-4.51); Absolute Neutrophil Count 16.1 X10^3/uL (2.0-7.7); Basophil# 0.03 X10^3/uL; Basophil% 0.2 % (0-1); Eosinophils% 0.5 % (0-5); Hematocrit 45.4 % (40-54); Hemoglobin 14.6 g/dL (13.0-16.5); Lymphocyte # 0.57 X10^3/ul (4.0); Lymphocyte % 3.1 % (19-41); Mean Corp Hgb Conc 32.2 g/dL (32-36); Mean Corpuscular Hgb 29.6 pg (27.0-32.0); Mean Corpuscular Volume 92.1 fL (80-94); Mean Platelet Vol. 9.8 fl (6.2-12.0); Monocyte# 1.43 X10^3/uL; Monocyte% 7.8 % (0-10); NRBC Flagged by Analyzer 0 % (0-5); Neutrophil # 16.12 X10^3/uL (2.7-7.7); Neutrophil % 87.7 % (47-70); POSITIVE DIFFERENTIAL YES; Platelet Count 305 K/mm3 (150-450); RBC Distribution Width CV 14.4 % (11.6-14.6); RBC Distribution Width SD 49.1 fl (35.1-43.9); Red Blood Count 4.93 M/mm3 (4.6-6.2); White Blood Count 18.4 K/mm3 (4.4-11.0)
[2019-06-30 18:34] LABS: International Normalized Ratio 2.4; Prothrombin Time (Protime)PT. 26.3 SECONDS (11.7-14.9)
[2019-06-30 18:35] LABS: Differential Indicated SCAN CRITERIA MET; Partial Thromboplast Time 52.6 Seconds (24.1-36.2)
[2019-06-30 18:38] LABS: Bacteria 0 SEEN /hpf (None Seen); Squamous Epithelial Cells - UA 0 SEEN /hpf (0-5)
[2019-06-30 18:42] LABS: Anion Gap 6 (5-15); BUN 14 mg/dL (7-18); BUN/Creat Ratio 17.7 RATIO (10-20); Calcium,Total 8.9 mg/dL (8.5-10.1); Chloride 102 mmol/L (98-107); Creatinine, Serum 0.79 mg/dL (0.70-1.30); Differential Comment SCANNED; EST Glomerular Filtration Rate 101 mL/min (>60); Est Glom Filt Rate - Afr Amer 122 mL/min (>60); Estimated Creatinine Clearance 48.82 ml/min; Glucose 90 mg/dL (74-106); Potassium 4.5 mmol/L (3.5-5.1); Sodium Level 138 mmol/L (136-145)
[2019-06-30] MEDS: 0.9% Normal Saline 1,000 ML 150 ML IV (18:45)
--- NOTE | 2019-06-30 18:57 | ED.RN ---
PT LACTIC 2.4. DR. TWAN DUMONT.
[2019-06-30 18:58] LABS: Lactic Acid 2.4 mmol/L (0.4-2.0)
[2019-06-30 19:06] LABS: Digoxin Level 1.17 ng/mL (0.80-2.00)
--- NOTE | 2019-06-30 19:09 | ED.RN ---
at this time pt received 1L NS. MD ordered 750 ml additional- see MAR.
[2019-06-30 19:12] LABS: Color, Urine Yellow (Yellow); Glucose, Dipstick Normal (Normal); Leukocyte Esterase-Dipstick 25 /ul (Negative); Nitrite-Dipstick Negative (Negative); Occult Blood-Urine 25 /ul (Negative); Protein-Dipstick 15 mg/dl (Negative); Urine Bilirubin Dipstick Negative (Negative); Urine Clarity Clear (Clear); Urine Urobilinogen 1 mg/dl (Normal)
[2019-06-30 19:53] LABS: Ketone-Dipstick 150 mg/dl (Negative)
[2019-06-30 19:54] LABS: Mucous, Urine 1+ /hpf (<or=2+); Red Blood Cells-Urine 0-5 SEEN /hpf (0-5); White Blood Cells 0-5 SEEN /hpf (0-5)
--- NOTE | 2019-06-30 19:55 | ED.RN ---
LAB CALLED WITH CRITICAL LAB RESULTS. URINE KETONES 150. DR. TRENT MADE AWARE NO NEW ORDERS AT THIS TIME
--- NOTE | 2019-06-30 20:10 | HP.PCM_ITS ---
Problem List (1) Severe sepsis Status: Acute (2) Elevated troponin Status: Inactive History of Present Illness Date of Admission: 06/30/19 Chief Complaint: weakness The patient is a 78 year old M with a significant history of COPD; diastolic heart failure; constant status post radiation and chemotherapy; paroxysmal A. fib who presented to emergency department with 3 to 4-day history of generalized weakness. Per family patient is too weak to walk. Also family noticed mottled bilateral lower extremities. Further the patient had a change in mental status; poor appetite and poor fluid intake. Also family noted the patient having shallow breathing. Because of progressively worsening of his symptoms patient was brought to emergency department. Per family last time the patient had the same symptoms he was diagnosed with UTI. However patient denies any urinary symptoms at this time. At the emergency department his systolic blood pressure was less than 90 and his respiratory rate was elevated. Also his heart rate was more than 90 but with IV fluid boluses patient blood pressure increased. His lactic acid was more than 2. Urine culture and blood culture was drawn and patient was started on broad- spectrum antibiotics of vancomycin and Zosyn. Past Medical History Past Medical History (Chronic Problems): Chronic Problems (Last Reviewed 06/11/19 @ 14:50 by Jett Nguyen MD) Acute on chronic diastolic (congestive) heart failure (Chronic) Paroxysmal atrial fibrillation (Chronic) Medical History: Medical History (Last Reviewed 06/30/19 @ 21:00 by Gideon Valentine MD) Acute on chronic diastolic (congestive) heart failure (Chronic) I50.33 Paroxysmal atrial fibrillation (Chronic) I48.0 Typical atrial flutter (Acute) I48.3 COPD (chronic obstructive pulmonary disease) J44.9 Debility R53.81 Lung cancer C34.90 Parkinson disease G20 Right rib fracture S22.31XA Hemoptysis R04.2 Hypotension I95.9 Severe sepsis Onset Date: 05/2019 A41.9, R65.20 Urinary tract infection N39.0 Allergies No Known Allergies Allergy (Verified 06/30/19 17:34) Home Medications: Ambulatory Orders Medication Instructions Recorded Cholecalciferol (VIT D3) [Vitamin 1,000 unit PO DAILY 05/19/19 D3] Digoxin 125 mcg PO DAILY 05/19/19 Apixaban [Eliquis] 2.5 mg PO BID #60 tab 06/06/19 Carbidopa/Levodopa 25/100 [Sinemet 1 tab PO TIDAC #90 tab 06/06/19 25/100] Menthol/Lanolin/Calamine/Znox 1 applic TOPICAL TID tube 06/06/19 [Calmoseptine Ointment] metoprolol succinate ER 25 mg 25 mg PO BID #120 tab 06/11/19 tablet,extended release 24 hr Docusate Sodium [Colace Clear] 50 mg PO DAILY 06/30/19 Surgical History: Surgical History (Last Reviewed 06/30/19 @ 21:01 by Gideon Valentine MD) History of appendectomy Z90.49 Surgical History: appendectomy Psychiatric History: No pertinent psych hx Lives: Alone Smoking Status: Former smoker - *Family History Maternal History Items: - - Patient is not answering questions and family does not know. Paternal History Items: Heart Disease, Stroke Review of Systems Constitutional: Reports: Anorexia, Weakness. Denies: Chills, Fever, Weight Change HEENT: Denies: Head Aches, Sinus Congestion, Sinus Drainage Cardiovascular: Denies: Chest Pain, Palpitations Respiratory: Reports: Shortness of Breath. Denies: Cough, Shortness of breath at rest, Sputum production Gastrointestinal: Denies: Abdominal Pain, Nausea, Vomiting Genitourinary: Denies: Dysuria Musculoskeletal: Denies: Joint Pain, Joint Tenderness Skin: Denies: Rash, Wounds Neurological: Reports: Confusion. Denies: Focal weakness, Numbness, Tingling Psychiatric: Denies: Anxiety, Depression, Homicidal Ideations, Suicidal Ideations Hematologic/ Lymphatic: Denies: Easy Bruising, Easy Bleeding VTE Information - Inpt Only VTE Present on Admission: No VTE Mechan Device Prophylaxis: None VTE Pharm Prophylaxis ordered?: No Reason prophylaxis not ordered:: Treatment Not Indicated - Eliquis continued Patient Problems: Active and Suspected Problems (Last Reviewed 06/11/19 @ 14:50 by Jett Nguyen MD) Severe sepsis (Acute) - Physical Exam General: Alert, Cooperative, - - Oriented to the year. Not oriented to the month. HEENT: Atraumatic, PERRLA, Normocephalic Neck: Supple, Trachea Midline Lungs: Clear to auscultation, Normal air movement Cardiovascular: Regular rate, No murmurs Abdomen: Bowel Sounds Present, Soft, Non Tender Extremities: Cool, - - Peripheral pulses +2/4 in DP and PT of left foot but nonpalpable in right foot. Skin: No rashes, No breakdown Musculoskeletal: No Tenderness to Palpation of Joints or Extremities Neurological: Cranial nerves II-XII grossly intact Psych/Mental Status: Normal Affect, Appropriate Vital Signs Temp Pulse Resp BP Pulse Ox 98 F 98 18 106/57 L 98 06/30/19 20:05 06/30/19 20:05 06/30/19 20:05 06/30/19 20:05 06/30/19 20:05 Oxygen Delivery Method Room Air Weight: 56.699 kg Body Mass Index (BMI) 20.7 Laboratory Tests Past 24 Hrs 06/30/19 06/30/19 06/30/19 18:10 18:10 18:10 WBC 18.4 H RBC 4.93 Hgb 14.6 Hct 45.4 MCV 92.1 MCH 29.6 MCHC 32.2 RDW Std Deviation 49.1 H RDW Coeff of [place]rell 14.4 Plt Count 305 MPV 9.8 Immature Gran % (Auto) 0.700 Neut % (Auto) 87.7 H Lymph % (Auto) 3.1 L [place] % (Auto) 7.8 Eos % (Auto) 0.5 Baso % (Auto) 0.2 Absolute Neuts (auto) 16.1 H Absolute Lymphs (auto) 0.57 L Nucleated RBC % 0 Differential Comment SCANNED PT 26.3 H INR 2.4 APTT 52.6 H Sodium 138 Potassium 4.5 Chloride 102 Carbon Dioxide 30.0 Anion Gap 6 BUN 14 Creatinine 0.79 Estim Creat Clear Calc 48.82 Est GFR (MDRD) Af Amer 122 Est GFR (MDRD) Non-Af 101 BUN/Creatinine Ratio 17.7 Glucose 90 Lactic Acid Calcium 8.9 Troponin I < 0.015 Urine Color Urine Clarity Urine pH Ur Specific [place] Urine Protein Urine Glucose (UA) Urine Ketones Urine Occult Blood Urine Nitrite Urine Bilirubin Urine Urobilinogen Ur Leukocyte Esterase Urine RBC Urine WBC Ur Squamous Epith Cells Urine Bacteria Urine Mucus Digoxin 06/30/19 06/30/19 06/30/19 18:10 18:10 18:30 WBC RBC Hgb Hct MCV MCH MCHC RDW Std Deviation RDW Coeff of [place] Plt Count MPV Immature Gran % (Auto) Neut % (Auto) Lymph % (Auto) [place] % (Auto) Eos % (Auto) Baso % (Auto) Absolute Neuts (auto) Absolute Lymphs (auto) Nucleated RBC % Differential Comment PT INR APTT Sodium Potassium Chloride Carbon Dioxide Anion Gap BUN Creatinine Estim Creat Clear Calc Est GFR (MDRD) Af Amer Est GFR (MDRD) Non-Af BUN/Creatinine Ratio Glucose Lactic Acid 2.4 H Calcium Troponin I Urine Color Yellow Urine Clarity Clear Urine pH 6.0 Ur Specific [place] 1.010 Urine Protein 15 H Urine Glucose (UA) Normal Urine Ketones 150 H Urine Occult Blood 25 H Urine Nitrite Negative Urine Bilirubin Negative Urine Urobilinogen 1 H Ur Leukocyte Esterase 25 H Urine RBC 0-5 SEEN Urine WBC 0-5 SEEN Ur Squamous Epith Cells 0 SEEN Urine Bacteria 0 SEEN Urine Mucus 1+ Digoxin 1.17 Assessment/Plan All Active Problems (Last Reviewed 06/11/19 @ 14:50 by Jett Nguyen MD) Severe sepsis (Acute) Typical atrial flutter (Acute) The patient is a 78 year old M with a significant history of COPD; diastolic heart failure; constant status post radiation and chemotherapy; paroxysmal A. fib who presented to emergency department with 3 to 4-day history of generalized weakness; anorexia and poor fluid intake; as well as shallow breathing and mottl ed bilateral lower extremities which had disappeared at the time of presentation but with good bilateral cool lower extremities; and found to have tachycardia; hypotension; tachypnea; leukocytosis; and lactic acidosis consistent with probable severe sepsis but with no clear source of infection. Probable severe sepsis Patient with hypotension with systolic pressure as low as 83 on admission and wi th lowest map of 62 but responded to fluid bolus per septic shock protocol Patient with tachycardia; tachypnea; leukocytosis and lactic acid of 2.4. His urinalysis was not impressive. Chest x-ray was not impressive. Urine culture and blood culture was obtained and patient was started on broad-spectrum antibiotics. Patient noted to have ketosis in his urine. Different diagnoses include severe dehydration We will continue broad-spectrum antibiotics of vancomycin and Zosyn as we await results of urine culture and blood culture. Trend blood pressure. Trend lactic acid. Hold home metoprolol. Of note his digoxin level is not elevated to suggest a digoxin toxicity. Trend CBC and BMP. Debility PT/OT to work with patient. Proximal A. fib Digoxin and Eliquis continued continued. Metoprolol held secondary to hypotension. Parkinson's disease Sinemet continued Probable PAD Will get arterial duplex DVT prophylaxis Not indicated since patient is on Eliquis. Eliquis continued. Code Visit Inpatient E&M: [id number] Init Hosp L3
--- NOTE | 2019-06-30 21:11 | ADU_ITS ---
Reason For Study: cool extremities Right Velocities Left Velocities Ext. Iliac Artery, dist = 75.3 cm./sec. Ext Iliac Artery, dist = 56.5 cm./sec. Common Femoral Artery, mid = 85.2 cm./sec. Common Femoral Artery, mid = 46.7 cm./sec. Supf Femoral Artery, prox = 64.4 cm./sec. Supf. Femoral Artery, prox = 47.8 cm./sec. Supf Femoral Artery, mid = 67.7 cm./sec. Supf. Femoral Artery, mid = 70.8 cm./sec. Supf Femoral Artery, dist. = 74.2 cm./sec. Supf. Femoral Artery, dist = 46.7 cm./sec. Profunda Femoral Artery = 46.8 cm./sec. Profunda Femoral Artery = 68.6 cm./sec. Popliteal Artery, prox. = 38.0 cm./sec. Popliteal Artery, proximal, = 59.8 cm./sec. Popliteal Artery, mid = 23.7 cm./sec. Popliteal Artery, mid = 33.6 cm./sec. Popliteal Artery, dist = 50.0 cm./sec. Popliteal Artery, distal = 35.5 cm./sec. Post. Tibial Artery, prox = 50.0 cm./sec. Post. Tibial Artery, prox = 55.3 cm./sec. Post. Tibial Artery, mid = 88.4 cm./sec. Post Tibial Artery, mid = 70.5 cm./sec. Post. Tibial Artery, dist = 64.3 cm./sec. Post Tibial Artery, dist. = 82.0. cm./sec. Peroneal Artery, mid = 45.6 cm./sec. Peroneal Artery, prox = 63.3 cm./sec. Peroneal Artery,dist = 39.0 cm./sec. Peroneal Artery, mid = 63.3 cm./sec. Ant. Tibial Artery, prox = 44.5 cm./sec. Peroneal Artery,dist. = 78.7 cm./sec. Ant. Tibial Artery, mid = 55.5 cm./sec. Ant.Tibial Artery, prox = 71.0 cm./sec. Ant. Tibial Artery, dist = 40.1 cm./sec. Ant Tibial Artery, mid = 67.7 cm./sec. Unable to image prox Peroneal Artery. Ant. Tibial Artery, distal = 60.0 cm./sec. Procedure The exam was diagnostic. Exam performed portable in patient room. Interpretation Summary Irregular plague diffusely located bilateral lower extremities. Following based upon waveforms. No velocity doubling identified. 0-19% right common femoral artery 0-19% right superficial femoral artery 50-99% rightmid popliteal artery Proximal right peroneal not identified 50-99% right posterior tibial artery 20-49% right anterior tibial artery 20-49% left common femoral artery 20-49% left superficial femoral artery 50-99% left mid popliteal artery 50-99% left posterior tibial artery 20-49% left peroneal artery 20-49% left anterior tibial artery Ordering Physician: Gideon Valentine Performed By: Van Gonzalez RVNuha
[2019-06-30] MEDS: 0.9% Normal Saline 1,000 ML 100 ML IV (21:21)
--- NOTE | 2019-06-30 22:01 | PCM.RX.CS ---
Consult Pharmacy has been consulted to manage selected antiobiotic: Vancomycin Type of Consult: New start Suspected Infection: Sepsis Labs: Sodium 138 mmol/L (136-145) 06/30/19 18:10 Potassium 4.5 mmol/L (3.5-5.1) 06/30/19 18:10 Chloride 102 mmol/L (98-107) 06/30/19 18:10 Carbon Dioxide 30.0 mmol/L (21.0-32.0) 06/30/19 18:10 6 (5-15) 06/30/19 18:10 BUN 14 mg/dL (7-18) 06/30/19 18:10 0.79 mg/dL (0.70-1.30) 06/30/19 18:10 Est GFR (MDRD) Af Amer 122 mL/min (>60) 06/30/19 18:10 Est GFR (MDRD) Non-Af 101 mL/min (>60) 06/30/19 18:10 17.7 RATIO (10-20) 06/30/19 18:10 Glucose 90 mg/dL (74-106) 06/30/19 18:10 Weight used for dosin kg Estimated Creatinine Clearance: 59.95 Goal Trough: 15-20 mcg/mL Pharmacy Plan for Drug Dosing: Pharmacy Service will continue to monitor and adjust dosing as required. Medications Vancomycin IV Pharmacy to Dose (750 ea/ Sodium Chloride) 500 mls @ 250 mls/hr IV X1 PRN; Protocol PRN Reason: Rx to Dose Vancomycin HCl () 500 mg in 100 mls @ 100 mls/hr IV Q12H DESIREE Discontinued Medications Vancomycin HCl 750 mg/ (Dextrose) 265 mls @ 250 mls/hr IV X1 ONE Stop: 06/30/19 21:03 Last Admin: 06/30/19 21:22 Dose: 250 mls/hr Documented by: Follow-Up Labs: Trough Vancomycin Labs to be done on [date and time ordered]: 07/02 @ 0900
[2019-06-30 22:21] LABS: Reflex Lactate? Y
[2019-06-30 22:30] LABS: Bedside Glucose 95 mg/dL (70-110)
[2019-06-30] MEDS: 0.9% Normal Saline 1,000 ML 999 ML IV (22:47)
[2019-06-30] MEDS: APIXABAN 2.5 MG TABLET PO (22:50)
[2019-07-01] VITALS (13 sets, daily range): BP systolic 88–119; BP diastolic 50–73; PULSE 95–115; RESP 18–20; TEMP 36.4–37.4; O2SAT 94–99
[2019-07-01] MEDS: 0.9% Normal Saline 1,000 ML 100 ML IV ×2 (05:56→23:38)
[2019-07-01] MEDS: Carbidopa/Levodopa 25/100 Tablet PO ×3 (06:07→17:08)
--- NOTE | 2019-07-01 06:14 | PN_ITS ---
Progress Note Severe Sepsis Follow up note Patient denies any symptoms. Heart sounds S1, s2 present. Murmur at left sternal border, not new. Lungs CTA Extremities warm. DP/PT pulses at left foot but not right foot. Assessment and Plan Lactic acid has been trended down. On broad spectrum antibiotics CBC and BMP in am are pending. Differential diagnosis includes severe dehydration. Consider de- escalating/stopping antibiotics if there continue to be no obvious source of infection
[2019-07-01 07:06] LABS: Absolute Lymphocyte Count 0.52 X10^3/uL (0.83-4.51); Absolute Neutrophil Count 15.2 X10^3/uL (2.0-7.7); Basophil# 0.04 X10^3/uL; Basophil% 0.2 % (0-1); Eosinophil# 0.01 X10^3/uL; Eosinophils% 0.1 % (0-5); Hematocrit 38.8 % (40-54); Hemoglobin 12.4 g/dL (13.0-16.5); Lymphocyte # 0.52 X10^3/ul (4.0); Mean Corpuscular Hgb 29.5 pg (27.0-32.0); Mean Corpuscular Volume 92.2 fL (80-94); Monocyte# 1.26 X10^3/uL; Monocyte% 7.3 % (0-10); NRBC Flagged by Analyzer 0 % (0-5); Neutrophil # 15.22 X10^3/uL (2.7-7.7); Neutrophil % 88.6 % (47-70); POSITIVE DIFFERENTIAL YES; Platelet Count 280 K/mm3 (150-450); RBC Distribution Width CV 14.6 % (11.6-14.6); RBC Distribution Width SD 49.4 fl (35.1-43.9); Red Blood Count 4.21 M/mm3 (4.6-6.2); White Blood Count 17.2 K/mm3 (4.4-11.0)
[2019-07-01 07:08] LABS: Differential Indicated SCAN CRITERIA MET
[2019-07-01 07:15] LABS: International Normalized Ratio 2.4; Prothrombin Time (Protime)PT. 26.4 SECONDS (11.7-14.9)
[2019-07-01 07:28] LABS: Anion Gap 8 (5-15); BUN 11 mg/dL (7-18); BUN/Creat Ratio 19.7 RATIO (10-20); Chloride 108 mmol/L (98-107); Creatinine, Serum 0.56 mg/dL (0.70-1.30); EST Glomerular Filtration Rate 151 mL/min (>60); Est Glom Filt Rate - Afr Amer 182 mL/min (>60); Estimated Creatinine Clearance 47.36 ml/min; Glucose 92 mg/dL (74-106); Potassium 3.9 mmol/L (3.5-5.1); Sodium Level 141 mmol/L (136-145)
[2019-07-01] MEDS: Vancomycin IV 500 MG/100 ML BAG 100 MG IV ×2 (10:20→20:31)
[2019-07-01] MEDS: Digoxin 125 MCG Tablet PO (10:22)
[2019-07-01] MEDS: APIXABAN 2.5 MG TABLET PO ×2 (10:22→21:42)
--- NOTE | 2019-07-01 13:04 | PCM.PROGNOTE ---
<Josephine Reyes - Last Filed: 07/01/19 13:17> Patient Problems: Active and Suspected Problems (Last Reviewed 06/30/19 @ 21:00 by Gideon Valentine MD) Severe sepsis (Acute) Subjective: Patient seen and examined. States he has a poor appetite. Denies nausea, vomiting. Complains of generalized weakness. Denies other specific complaints. - Physical Exam General: Alert, Oriented x3, Cooperative HEENT: Atraumatic, PERRLA, EOMI, Normocephalic Oral: Dry Mucosa Neck: Supple, No JVD, Negative Carotid Bruits Lungs: Clear to auscultation, Normal air movement Cardiovascular: Regular rate, Regular Rhythm, Normal S1, Normal S2, Murmur Abdomen: Bowel Sounds Present, Soft, Non Tender, Non-Distended Extremities: No clubbing, No cyanosis, No edema, Capillary Refill Less than 3 Seconds Skin: No rashes, No breakdown Musculoskeletal: No Tenderness to Palpation of Joints or Extremities, Cachexia Neurological: Cranial nerves II-XII grossly intact, Neuro grossly intact Psych/Mental Status: Flat Affect Vital Signs Temp Pulse Resp BP Pulse Ox 98.1 F 97 18 119/73 95 07/01/19 10:15 07/01/19 10:59 07/01/19 10:15 07/01/19 10:15 07/01/19 10:15 Oxygen Delivery Method Room Air Weight: 121 lb 4.068 oz Body Mass Index (BMI) 20.1 Intake and Output for Last 24 Hours 06/29/19 06/30/19 07/01/19 23:59 23:59 23:59 Intake Total 2305 / 2305 936 / 936 Balance 2305 / 2305 936 / 936 Laboratory Tests Past 24 Hrs 06/30/19 06/30/19 06/30/19 18:10 18:10 18:10 WBC 18.4 H RBC 4.93 Hgb 14.6 Hct 45.4 MCV 92.1 MCH 29.6 MCHC 32.2 RDW Std Deviation 49.1 H RDW Coeff of Terrell 14.4 Plt Count 305 MPV 9.8 Immature Gran % (Auto) 0.700 Neut % (Auto) 87.7 H Lymph % (Auto) 3.1 L [place]arton % (Auto) 7.8 Eos % (Auto) 0.5 Baso % (Auto) 0.2 Absolute Neuts (auto) 16.1 H Absolute Lymphs (auto) 0.57 L Nucleated RBC % 0 Differential Comment SCANNED PT 26.3 H INR 2.4 APTT 52.6 H Sodium 138 Potassium 4.5 Chloride 102 Carbon Dioxide 30.0 Anion Gap 6 BUN 14 Creatinine 0.79 Estim Creat Clear Calc 48.82 Est GFR (MDRD) Af Amer 122 Est GFR (MDRD) Non-Af 101 BUN/Creatinine Ratio 17.7 Glucose 90 Lactic Acid Calcium 8.9 Magnesium Troponin I < 0.015 Urine Color Urine Clarity Urine pH Ur Specific [place] Urine Protein Urine Glucose (UA) Urine Ketones Urine Occult Blood Urine Nitrite Urine Bilirubin Urine Urobilinogen Ur Leukocyte Esterase Urine RBC Urine WBC Ur Squamous Epith Cells Urine Bacteria Urine Mucus Digoxin 06/30/19 06/30/19 06/30/19 18:10 18:10 18:10 WBC RBC Hgb Hct MCV MCH MCHC RDW Std Deviation RDW Coeff of [place] Plt Count MPV Immature Gran % (Auto) Neut % (Auto) Lymph % (Auto) Wharton % (Auto) Eos % (Auto) Baso % (Auto) Absolute Neuts (auto) Absolute Lymphs (auto) Nucleated RBC % Differential Comment PT INR APTT Sodium Potassium Chloride Carbon Dioxide Anion Gap BUN Creatinine Estim Creat Clear Calc Est GFR (MDRD) Af Amer Est GFR (MDRD) Non-Af BUN/Creatinine Ratio Glucose Lactic Acid 2.4 H Calcium Magnesium 2.0 Troponin I Urine Color Urine Clarity Urine pH Ur Specific [place] Urine Protein Urine Glucose (UA) Urine Ketones Urine Occult Blood Urine Nitrite Urine Bilirubin Urine Urobilinogen Ur Leukocyte Esterase Urine RBC Urine WBC Ur Squamous Epith Cells Urine Bacteria Urine Mucus Digoxin 1.17 06/30/19 06/30/19 07/01/19 18:30 22:40 06:31 WBC 17.2 H RBC 4.21 L Hgb 12.4 L Hct 38.8 L MCV 92.2 MCH 29.5 MCHC 32.0 RDW Std Deviation 49.4 H RDW Coeff of [place]rell 14.6 Plt Count 280 MPV 10.0 Immature Gran % (Auto) 0.800 Neut % (Auto) 88.6 H Lymph % (Auto) 3.0 L [place] % (Auto) 7.3 Eos % (Auto) 0.1 Baso % (Auto) 0.2 Absolute Neuts (auto) 15.2 H Absolute Lymphs (auto) 0.52 L Nucleated RBC % 0 Differential Comment PT INR APTT Sodium Potassium Chloride Carbon Dioxide Anion Gap BUN Creatinine Estim Creat Clear Calc Est GFR (MDRD) Af Amer Est GFR (MDRD) Non-Af BUN/Creatinine Ratio Glucose Lactic Acid 2.0 Calcium Magnesium Troponin I Urine Color Yellow Urine Clarity Clear Urine pH 6.0 Ur Specific [place] 1.010 Urine Protein 15 H Urine Glucose (UA) Normal Urine Ketones 150 H Urine Occult Blood 25 H Urine Nitrite Negative Urine Bilirubin Negative Urine Urobilinogen 1 H Ur Leukocyte Esterase 25 H Urine RBC 0-5 SEEN Urine WBC 0-5 SEEN Ur Squamous Epith Cells 0 SEEN Urine Bacteria 0 SEEN Urine Mucus 1+ Digoxin 07/01/19 07/01/19 06:31 06:31 WBC RBC Hgb Hct MCV MCH MCHC RDW Std Deviation RDW Coeff of [place] Plt Count MPV Immature Gran % (Auto) Neut % (Auto) Lymph % (Auto) [place]arton % (Auto) Eos % (Auto) Baso % (Auto) Absolute Neuts (auto) Absolute Lymphs (auto) Nucleated RBC % Differential Comment PT 26.4 H INR 2.4 APTT Sodium 141 Potassium 3.9 Chloride 108 H Carbon Dioxide 25.0 Anion Gap 8 BUN 11 Creatinine 0.56 L Estim Creat Clear Calc 47.36 Est GFR (MDRD) Af Amer 182 Est GFR (MDRD) Non-Af 151 BUN/Creatinine Ratio 19.7 Glucose 92 Lactic Acid Calcium 8.0 L Magnesium Troponin I Urine Color Urine Clarity Urine pH Ur Specific [place] Urine Protein Urine Glucose (UA) Urine Ketones Urine Occult Blood Urine Nitrite Urine Bilirubin Urine Urobilinogen Ur Leukocyte Esterase Urine RBC Urine WBC Ur Squamous Epith Cells Urine Bacteria Urine Mucus Digoxin POC Glucose 06/30/19 22:28 POC Glucose 95 Medical Necessity - Tobacco Use Smoking Status: Former smoker Assessment/Plan All Active Problems (Last Reviewed 06/30/19 @ 21:00 by Gideon Valentine MD) Severe sepsis (Acute) Typical atrial flutter (Acute) 1. Probable severe sepsis, however unclear source-patient with tachycardia, tachypnea, leukocytosis and lactic acid 2.4. Chest x-ray unremarkable. Urine and blood culture pending. Leukocytosis improving. Continue IV fluids and IV Zosyn and vancomycin. BMP not remarkable for dehydration. Patient has a history of admission for urosepsis. Urinalysis fairly unremarkable, follow urine culture. Check MRSA PCR. 2. Paroxysmal atrial fibrillation-continue metoprolol, Eliquis, digoxin regimen. Currently sinus rhythm. 3. Chronic diastolic CHF-not on diuretic regimen. No acute CHF. 4. History of small cell lung cancer 5. Parkinson's disease- PT/OT. Likely needs SNF placement. Continue Sinemet regimen. DVT prophylaxis-Eliquis This patient was seen by QI Grajeda under the supervision of Dr. Harris. <Gustavo Harris F - Last Filed: 07/01/19 16:15> - Physical Exam Vital Signs Temp Pulse Resp BP Pulse Ox 98.1 F 97 18 119/73 95 07/01/19 10:15 07/01/19 10:59 07/01/19 10:15 07/01/19 10:15 07/01/19 10:15 Oxygen Delivery Method Room Air Weight: 121 lb 4.068 oz Body Mass Index (BMI) 20.1 Intake and Output for Last 24 Hours 06/29/19 06/30/19 07/01/19 23:59 23:59 23:59 Intake Total 2305 / 2305 1935 1936 Balance 2305 / 2305 1935 / 1935 Laboratory Tests Past 24 Hrs 06/30/19 06/30/19 06/30/19 18:10 18:10 18:10 WBC 18.4 H RBC 4.93 Hgb 14.6 Hct 45.4 MCV 92.1 MCH 29.6 MCHC 32.2 RDW Std Deviation 49.1 H RDW Coeff of Terrell 14.4 Plt Count 305 MPV 9.8 Immature Gran % (Auto) 0.700 Neut % (Auto) 87.7 H Lymph % (Auto) 3.1 L [place] % (Auto) 7.8 Eos % (Auto) 0.5 Baso % (Auto) 0.2 Absolute Neuts (auto) 16.1 H Absolute Lymphs (auto) 0.57 L Nucleated RBC % 0 Differential Comment SCANNED PT 26.3 H INR 2.4 APTT 52.6 H Sodium 138 Potassium 4.5 Chloride 102 Carbon Dioxide 30.0 Anion Gap 6 BUN 14 Creatinine 0.79 Estim Creat Clear Calc 48.82 Est GFR (MDRD) Af Amer 122 Est GFR (MDRD) Non-Af 101 BUN/Creatinine Ratio 17.7 Glucose 90 Lactic Acid Calcium 8.9 Magnesium Troponin I < 0.015 Urine Color Urine Clarity Urine pH Ur Specific [place] Urine Protein Urine Glucose (UA) Urine Ketones Urine Occult Blood Urine Nitrite Urine Bilirubin Urine Urobilinogen Ur Leukocyte Esterase Urine RBC Urine WBC Ur Squamous Epith Cells Urine Bacteria Urine Mucus Digoxin MRSA (PCR) 06/30/19 06/30/19 06/30/19 18:10 18:10 18:10 WBC RBC Hgb Hct MCV MCH MCHC RDW Std Deviation RDW Coeff of [place] Plt Count MPV Immature Gran % (Auto) Neut % (Auto) Lymph % (Auto) [place] % (Auto) Eos % (Auto) Baso % (Auto) Absolute Neuts (auto) Absolute Lymphs (auto) Nucleated RBC % Differential Comment PT INR APTT Sodium Potassium Chloride Carbon Dioxide Anion Gap BUN Creatinine Estim Creat Clear Calc Est GFR (MDRD) Af Amer Est GFR (MDRD) Non-Af BUN/Creatinine Ratio Glucose Lactic Acid 2.4 H Calcium Magnesium 2.0 Troponin I Urine Color Urine Clarity Urine pH Ur Specific [place] Urine Protein Urine Glucose (UA) Urine Ketones Urine Occult Blood Urine Nitrite Urine Bilirubin Urine Urobilinogen Ur Leukocyte Esterase Urine RBC Urine WBC Ur Squamous Epith Cells Urine Bacteria Urine Mucus Digoxin 1.17 MRSA (PCR) 06/30/19 06/30/19 07/01/19 18:30 22:40 06:31 WBC 17.2 H RBC 4.21 L Hgb 12.4 L Hct 38.8 L MCV 92.2 MCH 29.5 MCHC 32.0 RDW Std Deviation 49.4 H RDW Coeff of Terrell 14.6 Plt Count 280 MPV 10.0 Immature Gran % (Auto) 0.800 Neut % (Auto) 88.6 H Lymph % (Auto) 3.0 L [place] % (Auto) 7.3 Eos % (Auto) 0.1 Baso % (Auto) 0.2 Absolute Neuts (auto) 15.2 H Absolute Lymphs (auto) 0.52 L Nucleated RBC % 0 Differential Comment PT INR APTT Sodium Potassium Chloride Carbon Dioxide Anion Gap BUN Creatinine Estim Creat Clear Calc Est GFR (MDRD) Af Amer Est GFR (MDRD) Non-Af BUN/Creatinine Ratio Glucose Lactic Acid 2.0 Calcium Magnesium Troponin I Urine Color Yellow Urine Clarity Clear Urine pH 6.0 Ur Specific [place] 1.010 Urine Protein 15 H Urine Glucose (UA) Normal Urine Ketones 150 H Urine Occult Blood 25 H Urine Nitrite Negative Urine Bilirubin Negative Urine Urobilinogen 1 H Ur Leukocyte Esterase 25 H Urine RBC 0-5 SEEN Urine WBC 0-5 SEEN Ur Squamous Epith Cells 0 SEEN Urine Bacteria 0 SEEN Urine Mucus 1+ Digoxin MRSA (PCR) 07/01/19 07/01/19 07/01/19 06:31 06:31 15:25 WBC RBC Hgb Hct MCV MCH MCHC RDW Std Deviation RDW Coeff of Terrell Plt Count MPV Immature Gran % (Auto) Neut % (Auto) Lymph % (Auto) [place] % (Auto) Eos % (Auto) Baso % (Auto) Absolute Neuts (auto) Absolute Lymphs (auto) Nucleated RBC % Differential Comment PT 26.4 H INR 2.4 APTT Sodium 141 Potassium 3.9 Chloride 108 H Carbon Dioxide 25.0 Anion Gap 8 BUN 11 Creatinine 0.56 L Estim Creat Clear Calc 47.36 Est GFR (MDRD) Af Amer 182 Est GFR (MDRD) Non-Af 151 BUN/Creatinine Ratio 19.7 Glucose 92 Lactic Acid Calcium 8.0 L Magnesium Troponin I Urine Color Urine Clarity Urine pH Ur Specific [place] Urine Protein Urine Glucose (UA) Urine Ketones Urine Occult Blood Urine Nitrite Urine Bilirubin Urine Urobilinogen Ur Leukocyte Esterase Urine RBC Urine WBC Ur Squamous Epith Cells Urine Bacteria Urine Mucus Digoxin MRSA (PCR) Pending POC Glucose 06/30/19 22:28 POC Glucose 95 Code Visit Addendum: Dr. Harris I personally examined the patient and reviewed the chart. I agree with the above. 28-year-old male presenting with fatigue and weakness. Per the family this usually happens with a UTI however his UA was unremarkable and a urine culture is currently pending. However he was septic with an unknown source, he was tachycardic and tachypneic as well as having a significant leukocytosis. He started on broad-spectrum antibiotics and blood cultures are also pending. He has had a decreased appetite recently and therefore there is also likely component of dehydration, will continue with IV fluids and monitor. Inpatient E&M: [id number] Subs Hosp L2
[2019-07-01] MEDS: Menthol/Lanolin/Calamine/Znox 113 GM Tube 1 APPLIC TOPICAL ×2 (14:29→21:42)
--- NOTE | 2019-07-01 16:00 | CASEMGMT ---
SW attempted to talk with patient about a discharge plan. He was sleeping when SW went into the room. He did respond to SW calling his name. SW told him SW wanted to talk to him about a discharge plan. SW asked if SW should call his son to discuss this and he said no, he can talk. Patient never opened his eyes for SW. SW told him he did not do well with therapy and it is being recommended he go somewhere for rehab. SW told him SW has a list of in network facilities he can look at and maybe talk with his son. Patient did not respond and would not answer when SW called his name. SW left the list in the room and will talk with patient and/or his son tomorrow. [place] DRAPER MSW
[2019-07-01 17:30] LABS: M R Staph aureus DNA By PCR Negative (Negative); Probe Check PASS; Specimen Processing Control PASS
--- NOTE | 2019-07-01 21:34 | ECHOD_ITS ---
Reason For Study: Hypotension Procedure This was a 2D Doppler, Color Flow transthoracic echocardiogram. Myocardial strain analysis was performed in this exam to aid in the assessment of cardiac function. Exam performed portable in patient room. Left Ventricle Normal size and thickness. The estimated ejection fraction is 65 %. Stage 2 diastolic dysfunction. No regional wall motion abnormalities noted. Right Ventricle Normal size and thickness. Normal systolic function. Atria Normal left atrium. Normal right atrium. Normal atrial septum. Mitral Valve Mild diffuse mitral valve thickening. Trivial mitral valve insufficiency. Tricuspid Valve Normal tricuspid valve. Trivial tricuspid valve insufficiency. Right ventricular systolic pressure estimated to be 29 mmHg. Aortic Valve Trisinus/trileaflet aortic valve. Moderate diffuse aortic valve thickening. Mild focal aortic valve calcification. Moderate restriction of the aortic valve. Moderate aortic stenosis. Peak aortic valve gradient 29 mmHg. Mean aortic valve gradient 15 mmHg. Calculated aortic valve area (continuity equation) is 1.00 cm2. Trivial aortic valve insufficiency. Pulmonic Valve Normal pulmonic valve. Great Vessels Normal aortic root. Normal arch. Normal inferior vena cava. Inferior vena cava collapse with respiration. Pericardium/Pleural No pericardial effusion. MMode/2D Measurements & Calculations LVIDd: 3.9 cm IVSd: 1.2 cm LVOT diam: 2.0 cm LVIDs: 2.6 cm LVPWd: 1.1 cm LVOT area: 3.2 cm2 FS: 33.9 % Ao root diam: 3.9 cm LAV(MOD-sp4): 51.7 ml LA A4 area: 19.9 cm2 LA dimension: 3.1 cm RA A4 area: 20.8 cm2 Time Measurements MV dec time: 0.18 sec Doppler Measurements & Calculations MV E max roscoe: 70.6 cm/sec Lat Peak E' Roscoe: 3.8 cm/sec Med Peak E' Roscoe: 11.6 cm/sec MV A max roscoe: 47.9 cm/sec E/E' lat: 18.5 E/E' med: 6.1 MV E/A: 1.5 MV V2 max: 77.1 cm/sec MV P1/2t max roscoe: 77.6 cm/sec Ao V2 max: 267.9 cm/sec MV max P.4 mmHg MV P1/2t: 65.0 msec Ao max P.7 mmHg MV V2 mean: 43.3 cm/sec Ao V2 mean: 174.9 cm/sec MV mean P.88 mmHg MV dec slope: 350.0 cm/sec2 Ao mean P.8 mmHg MV V2 VTI: 13.1 cm MVA(P1/2t): 3.4 cm2 Ao V2 VTI: 41.3 cm MVA(VTI): 3.2 cm2 STEFANO(I,D): 1.00 cm2 STEFANO(V,D): 0.96 cm2 AI max roscoe: 312.7 cm/sec LV V1 max: 80.8 cm/sec MR max roscoe: 386.2 cm/sec AI max P.7 mmHg LV V1 max P.6 mmHg MR max P.7 mmHg AI dec slope: 276.2 cm/sec2 LV V1 mean P.3 mmHg MR mean roscoe: 319.6 cm/sec AI P1/2t: 331.6 msec LV V1 mean: 53.1 cm/sec MR mean P.5 mmHg LV V1 VTI: 12.9 cm MR VTI: 91.0 cm SV(LVOT): 41.2 ml PA V2 max: 96.3 cm/sec TR max roscoe: 245.7 cm/sec TR max P.1 mmHg Interpretation Summary The estimated ejection fraction is 65 %. Stage 2 diastolic dysfunction. Trivial tricuspid valve insufficiency. Right ventricular systolic pressure estimated to be 29 mmHg. Moderate aortic stenosis. Trivial aortic valve insufficiency. There is no comparison study available. Ordering Physician: Gideon Valentine Performed By: Vini Moreno RCS
[2019-07-01] MEDS: 0.9% Normal Saline 1,000 ML 999 ML IV (21:51)
[2019-07-01] MEDS: 0.9% NaCl Peripheral Flush Adult/Peds IV (23:41)
[2019-07-02] VITALS (21 sets, daily range): BP systolic 85–131; BP diastolic 56–72; PULSE 97–112; RESP 13–37; TEMP 36.7–37.4; O2SAT 92–100
[2019-07-02 05:16] LABS: Mean Corp Hgb Conc 31.4 g/dL (32-36); Mean Corpuscular Hgb 29.3 pg (27.0-32.0); Mean Corpuscular Volume 93.1 fL (80-94); Mean Platelet Vol. 10.2 fl (6.2-12.0); Platelet Count 257 K/mm3 (150-450); RBC Distribution Width CV 14.6 % (11.6-14.6); RBC Distribution Width SD 50.4 fl (35.1-43.9); Red Blood Count 3.76 M/mm3 (4.6-6.2)
[2019-07-02] MEDS: 0.9% NaCl IVPB Med Flush (250 mL) 15 ML IV (05:18)
[2019-07-02] MEDS: Menthol/Lanolin/Calamine/Znox 113 GM Tube 1 APPLIC TOPICAL ×3 (05:19→21:11)
[2019-07-02] MEDS: Carbidopa/Levodopa 25/100 Tablet PO ×3 (06:27→17:29)
[2019-07-02] MEDS: 0.9% Normal Saline 1,000 ML 100 ML IV (08:40)
[2019-07-02 09:42] LABS: Vancomycin, Trough Level 4.8 ug/mL (5.0-15.0)
[2019-07-02] MEDS: APIXABAN 2.5 MG TABLET PO ×2 (10:01→21:05)
[2019-07-02] MEDS: Docusate Sodium 100 MG/10 ML UDC 50 MG PO (10:01)
[2019-07-02] MEDS: Vancomycin IV 500 MG/100 ML BAG 100 MG IV (10:08)
--- NOTE | 2019-07-02 11:05 | PCM.RX.CS ---
Consult Pharmacy has been consulted to manage selected antiobiotic: Vancomycin Type of Consult: Follow-up Suspected Infection: Sepsis Prior Doses of Antibiotics Received/Current Regimen: Currently on 500mg IV q12h Labs: Sodium 141 mmol/L (136-145) 07/01/19 06:31 Potassium 3.9 mmol/L (3.5-5.1) 07/01/19 06:31 Chloride 108 mmol/L (98-107) H 07/01/19 06:31 Carbon Dioxide 25.0 mmol/L (21.0-32.0) 07/01/19 06:31 8 (5-15) 07/01/19 06:31 BUN 11 mg/dL (7-18) 07/01/19 06:31 0.56 mg/dL (0.70-1.30) L 07/01/19 06:31 Est GFR (MDRD) Af Amer 182 mL/min (>60) 07/01/19 06:31 Est GFR (MDRD) Non-Af 151 mL/min (>60) 07/01/19 06:31 19.7 RATIO (10-20) 07/01/19 06:31 Glucose 92 mg/dL (74-106) 07/01/19 06:31 Vancomycin Trough 4.8 ug/mL (5.0-15.0) L 07/02/19 08:45 Microbiology: Microbiology 06/30/19 18:30 Urine, Clean Catch Urine Culture - Preliminary Culture exhibits no growth. Weight used for dosin kg Goal Trough: 15-20 mcg/mL Pharmacy Plan for Drug Dosing: Trough obtained before this morning's dose was 4.8 mg/L. Will double the dosing to 1000mg IV q12h and start this new dosing 8 hours from this morning's dose since a 500mg dose was given after the trough was drawn. Hesitant to increase the dose too much at once due to the patient's age and weight of only 55kg and since he is most likely not at steady state yet after receiving just 3 doses before the trough was drawn. Another trough will be ordered to be drawn before the 4th new dose. Pharmacy Service will continue to monitor and adjust dosing as required. Follow-Up Labs: Trough Vancomycin Labs to be done on [date and time ordered]: 07/04/19 05:30
--- NOTE | 2019-07-02 11:35 | CASEMGMT ---
SW spoke with patient this am regarding d/c plan. SW told him it is being recommended he go to a [facility] facility for rehab. SW told him SW left him a list of in network facilities, but it was nowhere to be found. PATRICK asked if it would be okay if SW called his son, Lobito to discuss this plan. He said it would be fine. PATRICK called Lobito, introduced self and role at [facility]. SW told him recommendations for SNF. He said they would like [facility]. SW told him SW could call and check to see if they are in network. SW asked if they had any other choices in the event [facility] does not work out. He said not they had not talked about it, but he will talk with his siblings to decide on other facilities. He also asked if patient was Hospice appropriate as he knows patient is tired of everything. SW told him SW will talk with physician. SW spoke with [facility] and they are out of network. SW spoke with physician and Nurse Practitioner about Hospice for patient. At this time it does not appear he is appropriate for Hospice as there is not qualifying diagnosis per [facility]. PATRICK called Lobito and left him a voice mail letting him know [facility] is out of network and that Hospice is not recommended at this time. SW asked him to please call PATRICK back regarding other SNF choices. [place] DRAPER MSW
--- NOTE | 2019-07-02 13:20 | PCM.PROGNOTE ---
<Josephine Reyes - Last Filed: 07/02/19 13:27> Patient Problems: Active and Suspected Problems (Last Reviewed 06/30/19 @ 21:00 by Gideon Valentine MD) Severe sepsis (Acute) Subjective: Patient seen and examined. No acute events overnight. Denies current complaints. Agreeable to SNF. Family deciding on facility. - Physical Exam General: Alert, Oriented x3, Cooperative HEENT: Atraumatic, PERRLA, EOMI, Normocephalic Oral: Dry Mucosa Neck: Supple, No JVD, Negative Carotid Bruits Lungs: Clear to auscultation, Normal air movement Cardiovascular: Regular rate, Regular Rhythm, Normal S1, Normal S2, Murmur Abdomen: Bowel Sounds Present, Soft, Non Tender, Non-Distended Extremities: No clubbing, No cyanosis, No edema, Capillary Refill Less than 3 Seconds Skin: No rashes, No breakdown Musculoskeletal: No Tenderness to Palpation of Joints or Extremities, Cachexia Neurological: Cranial nerves II-XII grossly intact, Neuro grossly intact Psych/Mental Status: Flat Affect Vital Signs Temp Pulse Resp BP Pulse Ox 98.2 F 107 H 30 H 94/59 L 98 07/02/19 09:00 07/02/19 09:00 07/02/19 09:00 07/02/19 09:00 07/02/19 09:00 Oxygen Delivery Method Room Air Weight: 121 lb 4.068 oz Body Mass Index (BMI) 20.1 Intake and Output for Last 24 Hours 06/30/19 07/01/19 07/02/19 23:59 23:59 23:59 Intake Total 2305 / 2305 3419.33 / 3419.33 1390.00 / 1390.00 Balance 2305 / 2305 3419.33 / 3419.33 1390.00 / 1390.00 Microbiology Past 72 Hours 06/30/19 18:30 Urine Culture - Preliminary Urine, Clean Catch Culture exhibits no growth. Laboratory Tests Past 24 Hrs 07/01/19 07/02/19 07/02/19 15:25 04:55 08:45 WBC 15.0 H RBC 3.76 L Hgb 11.0 L Hct 35.0 L MCV 93.1 MCH 29.3 MCHC 31.4 L RDW Std Deviation 50.4 H RDW Coeff of Terrell 14.6 Plt Count 257 MPV 10.2 Vancomycin Trough 4.8 L MRSA (PCR) Negative Medical Necessity - Tobacco Use Smoking Status: Former smoker Assessment/Plan All Active Problems (Last Reviewed 06/30/19 @ 21:00 by Gideon Valentine MD) Severe sepsis (Acute) Typical atrial flutter (Acute) 1. Probable severe sepsis, however unclear source-patient with tachycardia, tachypnea, leukocytosis and lactic acid 2.4. Chest x-ray unremarkable. Urine culture shows no growth. Blood culture pending. Leukocytosis improving. Continue IV fluids and IV Zosyn and vancomycin. BMP not remarkable for dehydration. Check respiratory panel given no other clear source of infection and prior cough with shortness of breath. 2. Paroxysmal atrial fibrillation-continue metoprolol, Eliquis, digoxin regimen. Currently sinus rhythm. 3. Chronic diastolic CHF-not on diuretic regimen. No acute CHF. 4. History of small cell lung cancer 5. Parkinson's disease- PT/OT. SNF at [place]. Continue Sinemet regimen. DVT prophylaxis-Eliquis Discharge planning: SNF pending family choosing facility and patient medically stable. Son discussed hospice as well. Hospice can follow at SNF. This patient was seen by QI Grajeda under the supervision of Dr. Harris. <Gustavo Harris F - Last Filed: 07/02/19 13:55> - Physical Exam Vital Signs Temp Pulse Resp BP Pulse Ox 98.6 F 109 H 24 H 110/72 100 07/02/19 13:00 07/02/19 13:00 07/02/19 13:00 07/02/19 13:00 07/02/19 13:00 Oxygen Delivery Method Room Air Weight: 121 lb 4.068 oz Body Mass Index (BMI) 20.1 Intake and Output for Last 24 Hours 06/30/19 07/01/19 07/02/19 23:59 23:59 23:59 Intake Total 2305 / 2305 3419.33 / 3419.33 1730.00 / 1730.00 Balance 2305 / 2305 3419.33 / 3419.33 1730.00 / 1730.00 Microbiology Past 72 Hours 06/30/19 18:30 Urine Culture - Preliminary Urine, Clean Catch Culture exhibits no growth. Laboratory Tests Past 24 Hrs 08/07/02/19 07/02/19 15:25 04:55 08:45 WBC 15.0 H RBC 3.76 L Hgb 11.0 L Hct 35.0 L MCV 93.1 MCH 29.3 MCHC 31.4 L RDW Std Deviation 50.4 H RDW Coeff of Terrell 14.6 Plt Count 257 MPV 10.2 Vancomycin Trough 4.8 L MRSA (PCR) Negative Code Visit Addendum: Dr. Harris I personally examined the patient and reviewed the chart. I agree with the above. 78-year-old male presenting with fatigue and weakness. Per the family this usually happens with a UTI however his UA was unremarkable and a urine culture is currently no growth. However he was septic with an unknown source, he was tachycardic and tachypneic as well as having a significant leukocytosis. He started on broad-spectrum antibiotics and blood cultures are also pending. MRSA PCR is negative and therefore will discontinue the vancomycin continue only with the Zosyn for now. He has continued to improve doses and will obtain a respiratory panel. He has had a decreased appetite recently and therefore there is also likely component of dehydration initial admission though he has been maintained on IV fluids and therefore this is also likely resolved. Also he is already on Eliquis for therefore unlikely the cause of his tachypnea and tachycardia to be a PE. Inpatient E&M: 31813 Subs Hosp L2
--- NOTE | 2019-07-02 13:33 | CASEMGMT ---
PATRICK received a return call from Lobito, patient's son. He asked if SW could check with Vivian at [facility]. PATRICK told him SW will check with [facility] first and let him know what SW is able to find out. PATRICK called Katie at [facility] and made referral. PATRICK also faxed referral to [facility]. Await response. Savannah DRAPER MSW
--- NOTE | 2019-07-02 14:39 | CASEMGMT ---
[facility] can take patient at discharge. Katie started the pre-cert. SW called patient's son and left him a voice mail letting him know that [facility] can take patient and they submitted for insurance approval. PATRICK also mentioned that there is a good possibility insurance could deny patient going to the shelter so he should start working on a Medicaid application in the event patient gets denied by [employer]. PATRICK told him PATRICK can give them an application. SW will talk with patient and update him on conversation with his son. Plan: [facility] pending insurance approval and patient being medically ready. [place]annah DRAPER MSW
[2019-07-02] MEDS: Metoprolol(XL)Succ 25 MG Tablet PO (21:05)
[2019-07-03] VITALS (8 sets, daily range): BP systolic 91–103; BP diastolic 63–69; PULSE 101–114; RESP 18–20; TEMP 36.4–37.1; O2SAT 94–96
[2019-07-03] MEDS: Menthol/Lanolin/Calamine/Znox 113 GM Tube 1 APPLIC TOPICAL ×2 (05:58→13:54)
[2019-07-03 06:03] LABS: Hematocrit 34.1 % (40-54); Mean Corp Hgb Conc 32.3 g/dL (32-36); Mean Corpuscular Hgb 30.1 pg (27.0-32.0); Mean Corpuscular Volume 93.2 fL (80-94); Mean Platelet Vol. 10.2 fl (6.2-12.0); Platelet Count 262 K/mm3 (150-450); RBC Distribution Width CV 14.7 % (11.6-14.6); RBC Distribution Width SD 50.9 fl (35.1-43.9); Red Blood Count 3.66 M/mm3 (4.6-6.2); White Blood Count 13.9 K/mm3 (4.4-11.0)
[2019-07-03] MEDS: Digoxin 125 MCG Tablet PO (08:24)
[2019-07-03] MEDS: Carbidopa/Levodopa 25/100 Tablet PO ×2 (08:24→11:17)
[2019-07-03] MEDS: APIXABAN 2.5 MG TABLET PO (08:24)
--- NOTE | 2019-07-03 13:06 | CASEMGMT ---
PATRICK received a call from patient's son, Lobito. He said he has completed the Medicaid application. He is working on obtaining proof of Social Security. 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 PATRICK encouraged him to get the application sent in to [facility] in the event [employer] denies patient to go to [facility]. PATRICK told him PATRICK can let him know when PATRICK hears from [facility] regarding insurance. Plan: [facility] [place] pending insurance approval. Savannah DRAPER MSW
--- NOTE | 2019-07-03 13:18 | PCM.PROGNOTE ---
Patient Problems: Active and Suspected Problems (Last Reviewed 06/30/19 @ 21:00 by Gideon Valentine MD) Severe sepsis (Acute) Subjective: Pt somewhat confused. He does not remember that he agreed to go to skilled. He has no fever/chills, he has no Cough, SOB, congestion, sore throat, nausea/vomiting, diarrhea, dysuria, or wounds. - Physical Exam General: Alert, Oriented x3, Cooperative HEENT: Atraumatic, PERRLA, EOMI, Normocephalic Neck: Supple, No JVD, Negative Carotid Bruits Lungs: Clear to auscultation, Normal air movement Cardiovascular: Regular rate, No murmurs Abdomen: Bowel Sounds Present, Soft, Non Tender Extremities: No edema, Capillary Refill Less than 3 Seconds Skin: No rashes, No breakdown Musculoskeletal: No Tenderness to Palpation of Joints or Extremities Neurological: Cranial nerves II-XII grossly intact Psych/Mental Status: Normal Affect, Appropriate Vital Signs Temp Pulse Resp BP Pulse Ox 97.6 F L 114 H 20 H 102/69 94 07/03/19 08:16 07/03/19 08:24 07/03/19 08:16 07/03/19 08:16 07/03/19 08:16 Oxygen Delivery Method Room Air Weight: 121 lb 4.068 oz Body Mass Index (BMI) 20.1 Intake and Output for Last 24 Hours 07/01/19 07/02/19 07/03/19 23:59 23:59 23:59 Intake Total 3419.33 / 3419.33 3541.54 / 3541.54 78.96 / 78.96 Output Total 2 / 2 Balance 3419.33 / 3419.33 3539.54 / 3539.54 78.96 / 78.96 Microbiology Past 72 Hours 07/02/19 13:44 Respiratory Panel (PCR) - Final Mucosa - Nose 06/30/19 18:30 Urine Culture - Final Urine, Clean Catch Culture exhibits no growth. 06/30/19 18:10 Blood Culture - Preliminary Blood Culture (Wb) - Right Forearm No growth in 48 hours. 06/30/19 18:10 Blood Culture - Preliminary Blood Culture (Wb) - Anticubital Left No growth in 48 hours. Laboratory Tests Past 24 Hrs 07/03/19 05:40 WBC 13.9 H RBC 3.66 L Hgb 11.0 L Hct 34.1 L MCV 93.2 MCH 30.1 MCHC 32.3 RDW Std Deviation 50.9 H RDW Coeff of Terrell 14.7 H Plt Count 262 MPV 10.2 Medical Necessity - Tobacco Use Smoking Status: Former smoker Assessment/Plan All Active Problems (Last Reviewed 06/30/19 @ 21:00 by Gideon Valentine MD) Severe sepsis (Acute) Typical atrial flutter (Acute) 1. SIRS - sepsis ruled out as no etiology identified. WBC has improved from 17.2 to 13.9. Continue empiric abx, change zosyn to augmentin. No fever. Mild tachy 2. PAfib - mild tachy. Eliquis, metoprolol. 3. Chronic diastolic CHF - no evidence of exacerbation 4. Hx SCLC 5. Parkinson Disease - sinemet DVT ppx: eliquis DC planning: SNF when approved. This patient was seen by Mark Chairez PA-C under the supervision of Dr. Harris.
--- NOTE | 2019-07-03 14:18 | CASEMGMT ---
PATRICK received a call from [facility] and patient was approved. PATRICK notified physician, RN, racing secretary and handicapper, and left message for patient's son as he will likely go today. Savannah EVANS
--- NOTE | 2019-07-03 14:21 | PCM.EXTCARCO ---
- Diet 06/30/19 21:12 Diet: Regular Diet Food consistency:: Regular Liquid Consistency:: Regular/Thin Type of Dietary Supplement:: Ensure Complete - Routine Orders/Code Status Suppository Type: Dulcolax 10mg Suppository Frequency: Daily PRN Routine Lab Work: CBC - 1 week, BMP - 1 week [facility]ies Physical Therapy: Eval and Treat Occupational Therapy: Eval and Treat Speech Therapy: Eval and Treat - Problem/Diagnosis (1) SIRS (systemic inflammatory response syndrome) Status: Acute Current Visit: Yes (2) Chronic diastolic CHF (congestive heart failure) Status: Chronic Current Visit: Yes (3) Small cell lung cancer Status: Chronic Current Visit: Yes (4) Parkinsons disease Status: Chronic Current Visit: Yes (5) Paroxysmal atrial fibrillation Status: Chronic Current Visit: No - Allergies/Procedures Done in Hospital Allergies/Adverse Reactions: Allergies No Known Allergies Allergy (Verified 06/30/19 17:34) Procedures: 2-D Echocardiogram - Type of Care/Length of Stay Estimated LOS: Convalescent Care Less Than 30 days Type of Care Needed: Skilled Rehab Potential: Fair Prognosis: Fair - Additional Orders/Day of Discharge Day of Discharge: 07/03/19 - Dietary and Speech Recommendations Dietitian Recommendations/Changes: Continue regular diet and Ensure w/ medpass. - Follow Up Care Primary Care Physician: [facility],[place] [Primary Care Provider] - Please follow up with your Primary Care Physician in: 2 weeks
--- NOTE | 2019-07-03 14:24 | PCM.DC.SUM ---
<Mark Chairez - Last Filed: 07/03/19 14:24> Discharge Date and Diagnosis - Problem List Patient Problems: Active and Suspected Problems (Last Reviewed 06/30/19 @ 21:00 by Gideon Valentine MD) Severe sepsis (Acute) SIRS (systemic inflammatory response syndrome) (Acute) Date of Admission: 06/30/19 Date of Discharge: 07/03/19 - Primary Discharge Diagnosis Active and Suspected Problems (Last Reviewed 06/30/19 @ 21:00 by Gideon Valentine MD) SIRS, no specific etiology Sepsis ruled out Weakness, debility, suspect 2/2 worsening of Parkinsons PAFib - Secondary Discharge Diagnosis Chronic Problems (Last Reviewed 06/30/19 @ 21:00 by Gideon Valentine MD) Chronic diastolic CHF (congestive heart failure) (Chronic) Small cell lung cancer (Chronic) Parkinsons disease (Chronic) Acute on chronic diastolic (congestive) heart failure (Chronic) Paroxysmal atrial fibrillation (Chronic) Hospital Course and Treatment Imaging Results: RAD/Chest 1 View (Portable) IMPRESSION: Overall suboptimal inspiratory effort compared to prior. Bilateral pleural plaque with calcifications, stable since prior. Stable volume loss on the left side with significant pleural thickening. Mild to moderate cardiomegaly. Duplex LE Arterial Study: Interpretation Summary Irregular plague diffusely located bilateral lower extremities. Following based upon waveforms. No velocity doubling identified. Echo: Interpretation Summary The estimated ejection fraction is 65 %. Stage 2 diastolic dysfunction. Trivial tricuspid valve insufficiency. Right ventricular systolic pressure estimated to be 29 mmHg. Moderate aortic stenosis. Trivial aortic valve insufficiency. There is no comparison study available. zzzzz Operations: None Procedures: 2-D Echocardiogram Summary of Care Provided: Hospital course: The patient is a 79 year old M with past medical history of small cell lung cancer, Parkinson's disease, paroxysmal atrial fibrillation, chronic diastolic congestive heart failure, who presented to the emergency room with increased weakness worsening over the past 3 to 4 days. He was too weak to even walk and the family had noticed that his lower extremities appear mottled. Other symptoms reported were change in mental status, poor appetite, poor fluid intake, poor breathing. He had had a urinary tract infection the last time he had had similar symptoms. He was brought to the emergency room and was suspected to have sepsis. His lactic acid was elevated, he had leukocytosis, tachypnea, and tachycardia. Despite this he did not have a significant chest x-ray, urinalysis was negative, he did not have any open wounds, and he lacked specific symptoms to indicate an acute infection. He was started empirically on Vanc & Zosyn and he was admitted to the PCU. The patient's vitals stabilized and his leukocytosis improved. Respiratory panel was negative, nasal MRSA screen was negative, and cultures were negative. He worked with PT and OT and was found to have significant debility and weakness. It was agreed between him and his family that he would be placed in shelter as he remains significantly weak. Likely that he has had progression of his underlying Parkinson's disease. Patient was transitioned to an empiric course of Augmentin that he will complete a total of 7 days of antibiotic therapy. He was discharged to shelter in stable condition. This patient was seen by Mark Chairez PA-C under the supervision of Doctor Harris. [] Patient Problems: Active and Suspected Problems (Last Reviewed 06/30/19 @ 21:00 by Gideon Valentine MD) Severe sepsis (Acute) SIRS (systemic inflammatory response syndrome) (Acute) - Physical Exam General: Alert, Oriented x3, Cooperative HEENT: Atraumatic, PERRLA, EOMI, Normocephalic Neck: Supple, No JVD, Negative Carotid Bruits Lungs: Clear to auscultation, Normal air movement Cardiovascular: Regular rate, No murmurs Abdomen: Bowel Sounds Present, Soft, Non Tender Extremities: No edema, Capillary Refill Less than 3 Seconds Skin: No rashes, No breakdown Musculoskeletal: No Tenderness to Palpation of Joints or Extremities Neurological: Cranial nerves II-XII grossly intact Psych/Mental Status: Normal Affect, Appropriate, Alert and oriented to time, place, person, mood and affect Vital Signs Temp Pulse Resp BP Pulse Ox 98.4 F 101 H 18 91/63 95 07/03/19 13:50 07/03/19 13:50 07/03/19 13:50 07/03/19 13:50 07/03/19 13:50 Oxygen Delivery Method Room Air Weight: 121 lb 4.068 oz Body Mass Index (BMI) 20.1 Intake and Output for Last 24 Hours 07/01/19 07/02/19 07/03/19 23:59 23:59 23:59 Intake Total 3419.33 / 3419.33 3541.54 / 3541.54 318.96 / 318.96 Output Total 2 / 2 Balance 3419.33 / 3419.33 3539.54 / 3539.54 318.96 / 318.96 Microbiology Past 72 Hours 07/02/19 13:44 Respiratory Panel (PCR) - Final Mucosa - Nose 06/30/19 18:30 Urine Culture - Final Urine, Clean Catch Culture exhibits no growth. 06/30/19 18:10 Blood Culture - Preliminary Blood Culture (Wb) - Right Forearm No growth in 48 hours. 06/30/19 18:10 Blood Culture - Preliminary Blood Culture (Wb) - Anticubital Left No growth in 48 hours. Laboratory Tests Past 24 Hrs 07/03/19 05:40 WBC 13.9 H RBC 3.66 L Hgb 11.0 L Hct 34.1 L MCV 93.2 MCH 30.1 MCHC 32.3 RDW Std Deviation 50.9 H RDW Coeff of Terrell 14.7 H Plt Count 262 MPV 10.2 Discharge Diet: Low fat/ Low Cholesterol, 2000 mg Sodium Diet Discharge Activity: Return to Normal Activity Home Medications: Medications to take at Discharge Cholecalciferol (VIT D3) [Vitamin D3] 1,000 unit PO DAILY 05/19/19 Digoxin 125 mcg PO DAILY 05/19/19 Apixaban [Eliquis] 2.5 mg PO BID #60 tab 06/06/19 Carbidopa/Levodopa 25/100 [Sinemet 25/100] 1 tab PO TIDAC #90 tab 06/06/19 Menthol/Lanolin/Calamine/Znox [Calmoseptine Ointment] 1 applic TOPICAL TID tube 06/06/19 metoprolol succinate ER 25 mg tablet,extended release 24 hr 25 mg PO BID #120 tab 06/11/19 Docusate Sodium [Colace Clear] 50 mg PO DAILY 06/30/19 Acetaminophen [Tylenol Tablet] 650 mg PO Q6H PRN PRN tab 07/03/19 Amox/Clavulanate Tablet [Augmentin Tablet] 875 mg PO BIDCM #9 tab 07/03/19 Following Prescrptions Were Given to Patient: Amox/Clavulanate Tablet [Augmentin Tablet] 875 mg PO BIDCM #9 tab Primary Care Physician: [facility],[place] [Primary Care Provider] - Please follow up with your Primary Care Physician in: 2 weeks Disposition: [facility] facility Minutes spent on discharge:: 35 Patient Condition:: Stable Medical Necessity - Tobacco Use Smoking Status: Former smoker Meaningful Use Info Meaningful Use Diagnoses (Choose all that apply): None applicable <Gustavo Harris - Last Filed: 07/03/19 15:31> Discharge Date and Diagnosis - Primary Discharge Diagnosis Active and Suspected Problems (Last Reviewed 06/30/19 @ 21:00 by Gideon Valentine MD) Severe sepsis (Acute) SIRS (systemic inflammatory response syndrome) (Acute) - Secondary Discharge Diagnosis Chronic Problems (Last Reviewed 06/30/19 @ 21:00 by Gideon Valentine MD) Chronic diastolic CHF (congestive heart failure) (Chronic) Small cell lung cancer (Chronic) Parkinsons disease (Chronic) Acute on chronic diastolic (congestive) heart failure (Chronic) Paroxysmal atrial fibrillation (Chronic) Hospital Course and Treatment Summary of Care Provided: The patient is a 79 year old M [] - Physical Exam Vital Signs Temp Pulse Resp BP Pulse Ox 98.4 F 101 H 18 103/67 95 07/03/19 13:50 07/03/19 13:50 07/03/19 13:50 07/03/19 15:08 07/03/19 13:50 Oxygen Delivery Method Room Air Weight: 121 lb 4.068 oz Body Mass Index (BMI) 20.1 Intake and Output for Last 24 Hours 07/01/19 07/02/19 07/03/19 23:59 23:59 23:59 Intake Total 3419.33 / 3419.33 3541.54 / 3541.54 318.96 / 318.96 Output Total 2 / 2 Balance 3419.33 / 3419.33 3539.54 / 3539.54 318.96 / 318.96 Microbiology Past 72 Hours 07/02/19 13:44 Respiratory Panel (PCR) - Final Mucosa - Nose 06/30/19 18:30 Urine Culture - Final Urine, Clean Catch Culture exhibits no growth. 06/30/19 18:10 Blood Culture - Preliminary Blood Culture (Wb) - Right Forearm No growth in 48 hours. 06/30/19 18:10 Blood Culture - Preliminary Blood Culture (Wb) - Anticubital Left No growth in 48 hours. Laboratory Tests Past 24 Hrs 08/22/19 05:40 WBC 13.9 H RBC 3.66 L Hgb 11.0 L Hct 34.1 L MCV 93.2 MCH 30.1 MCHC 32.3 RDW Std Deviation 50.9 H RDW Coeff of Terrell 14.7 H Plt Count 262 MPV 10.2 Code Visit Addendum: Dr. Harris I personally examined the patient and reviewed the chart. I agree with the above. 78-year-old male presenting with fatigue and weakness. Per the family this usually happens with a UTI however his UA was unremarkable and a urine culture is currently no growth. However he was septic with an unknown source, he was tachycardic and tachypneic as well as having a significant leukocytosis. He started on broad-spectrum antibiotics blood cultures were obtained and were also negative.. MRSA PCR is negative and therefore the vancomycin was discontinued. He was continued on Zosyn and continued to improve and therefore will be transition to Augmentin despite the lack of source. Respiratory panel was also obtained which was negative.. He has had a decreased appetite recently and therefore there is also likely component of dehydration initial admission though he has been maintained on IV fluids and therefore this is also likely resolved. Also he is already on Eliquis for therefore unlikely the cause of his tachypnea and tachycardia to be a PE. We will discharge to a shelter facility for rehab. Inpatient E&M: 50930 Disch Hosp
--- NOTE | 2019-07-03 15:53 | CASEMGMT ---
Received call from patient's son and let him know someone will let him know when a time has been arranged. [place]annah DRAPER MSW
--- NOTE | 2019-07-03 16:02 | CASEMGMT ---
Green sheet placed on chart for rest of discharge to [facility]. SW called Katie at [facility] and notified her of patient's appt with Dr Nguyen 8 at 3p as well as completion of the Palliative Care tool. She said they will talk with patient's family about Palliative Care. Plan: d/c to [facility] at [place] under skilled level of care on a convalescent stay. Staff to arrange transport. Savannah DRAPER MSW
--- NOTE | 2019-07-03 17:17 | NURSING ---
called report to Annamaria @ [facility]
== END 2019-07-03 17:35 | disposition skilled nursing facility (03) | DRG 948 ==
LOC: ED 20:24 → PCU 22:32
PROVIDERS: Nurse Practitioner Family; Admitting Provider Hospitalist; Emergency Provider Emergency Medicine; Visit Provider Family Medicine
DX: R53.1 Weakness (principal); R65.10 Systemic inflammatory response syndrome (SIRS) of non-infectious origin without acute organ dysfunction; I48.3 Typical atrial flutter; I50.32 Chronic diastolic (congestive) heart failure; R53.81 Other malaise; I11.0 Hypertensive heart disease with heart failure; I48.0 Paroxysmal atrial fibrillation; G20 Parkinson's disease; D72.829 Elevated white blood cell count, unspecified; Z87.891 Personal history of nicotine dependence; Z66 Do not resuscitate; Z85.118 Personal history of other malignant neoplasm of bronchus and lung; J44.9 Chronic obstructive pulmonary disease, unspecified; Z87.440 Personal history of urinary (tract) infections; Z79.02 Long term (current) use of antithrombotics/antiplatelets; Z79.899 Other long term (current) drug therapy
CPT/HCPCS: 36415; 71045; 80048; 80162; 80202; 81001; 82962; 83605; 83735; 84484; 85025; 85027; 85610; 85730; 87040; 87086; 87633; 87641; 93005; 93306; 93925; 97162; 97165; 97530; 97802; 99285; J7030; J7040; J7050; P9612; Q9957; A4216